=== PATIENT | male | born 1960 | race Caucasian/White ===

== ENCOUNTER 2016-12-11 05:15 | Outpatient (CLI) ==
[2016-12-15 16:52] VITALS: BMI 45.3
== END 2016-12-11 05:16 ==
LOC: AMBL 05:15
PROVIDERS: ATTEND Internal Medicine Geriatric Medicine
DX: E11.649 Type 2 diabetes mellitus with hypoglycemia without coma (principal); R06.02 Shortness of breath; J44.9 Chronic obstructive pulmonary disease, unspecified; Z99.81 Dependence on supplemental oxygen

== ENCOUNTER 2016-12-11 05:35 | Emergency (ER) ==
[2016-12-11 05:56] VITALS: BP 106/63; TEMP 96.6; BMI 45.3
[2016-12-11] MEDS ORDERED: SODIUM CHLORIDE 1,000 ML IV STA (06:42)
--- NOTE | 2016-12-11 06:47 | ED.PDOC ---
General Stated Complaint: Patient states that he woke up with feeling poorly/ like sugar being so low. He is complians of severe back pain. Took some peanut and crackers blood glucose went up to 179 when ambulace got there his blood glucose was 220s. Admits to taking extra Methadone due to worsening of back pain. Time Seen by Physician: 06:25 Mode of Arrival: Ambulance Information Source: Patient Exam Limitations: No limitations Nursing and Triage Documentation Reviewed and Agree: Yes <CARLOS HATCH - Last Filed: 12/11/16 07:04> <MITALI FAJARDO JR - Last Filed: 12/11/16 09:29> ED Provider: Dr. MITALI FAJARDO JR (CARLOS HATCH) (MITALI FAJARDO JR) Chief Complaint: Diabetes Primary Care Provider: BARTOLO PURCELL (CARLOS HATCH) (MITALI FAJARDO JR) Endocrine Complaint Exam - Diabetic Complication Complaint/Exam Onset/Duration: 1 hour Symptoms Are: Still present Timing: Constant Initial Severity: Severe <CARLOS HATCH - Last Filed: 12/11/16 07:04> Review of Systems - Review Of Systems Constitutional: Reports: Other (dorinda ) Eyes: Reports: No symptoms Ears, Nose, Mouth, Throat: Reports: No symptoms Respiratory: Reports: No symptoms Cardiac: Reports: No symptoms GI: Reports: Constipated Musculoskeletal: Reports: Back pain Skin: Reports: No symptoms Neurological: Reports: Anxiety Endocrine: Reports: No symptoms Hematologic/Lymphatic: Reports: No symptoms All Other Systems: Reviewed and Negative <CARLOS HATCH - Last Filed: 12/11/16 07:04> Past Medical History - Past Medical History Endocrine: Reports: DM 2 Cardiovascular: Reports: [place], Hypertension Respiratory: Reports: COPD Hematological: Reports: None Gastrointestinal: Reports: None Genitourinary: Reports: None Neuro/Psych: Reports: Anxiety Musculoskeletal: Reports: Arthritis, Back Pain Cancer: Reports: None - Surgical History General Surgical History: Reports: CABG - Family History Family History: Reports: Diabetes - Social History Smoking Status: Current every day smoker, Heavy tobacco smoker Hx Substance Use: Yes (occassional marijuana) Alcohol Screening: None - Immunizations Tetanus Shot up to Date: Yes (5 yrs ago) <CARLOS HATCH - Last Filed: 12/11/16 07:04> Physical Exam - Physical Exam Appearance: Ill-appearing, Obese Pain Distress: Severe (back) Eyes: OBDULIO, EOMI, Conjunctiva clear ENT: Dry mucosa Neck: Supple Respiratory: Airway patent, Breath sounds clear, Breath sounds equal, Respirations nonlabored Cardiovascular: RRR, Pulses normal, No rub, No murmur GI/: Soft (obsese ), Nontender, No masses, Bowel sounds normal, No Organomegaly Musculoskeletal: Normal strength, ROM intact, No edema, No calf tenderness Skin: Warm, Dry Neurological: Sensation intact, Motor intact, Reflexes intact, Cranial nerves intact, Alert, Oriented Psychiatric: Affect appropriate, Mood appropriate <CARLOS HATCH - Last Filed: 12/11/16 07:04> Re-Evaluation - Re-Evaluation Time of Re-Evaluation: 08:35 Status: Improved (labs marlon patietn alert denies extra methadone) <MITALI FAJARDO JR - Last Filed: 12/11/16 09:29> Physician Notification - Case Discussed Time of Notification: 07:05 Endorsed To/Discussed With: Dr. Fajardo <CARLOS HATCH - Last Filed: 12/11/16 07:04> Critical Care Note - Critical Care Note Total Time (mins): 0 <CARLOS HATCH - Last Filed: 12/11/16 07:04> Course - Course Hematology/Chemistry: 12/11/16 07:30 12/11/16 07:30 <MITALI FAJARDO JR - Last Filed: 12/11/16 09:29> - Course Orders, Labs, Meds: Lab Review 12/11/16 07:30 WBC 9.25 RBC 4.02 L Hgb 11.9 L Hct 35.9 L MCV 89.3 MCH 29.6 MCHC 33.1 RDW Coeff of Honorio 14.1 Plt Count 250 Immature Gran % (Auto) 0.6 Neut % (Auto) 76.1 Lymph % (Auto) 12.4 Beaver % (Auto) 7.9 Eos % (Auto) 2.5 Baso % (Auto) 0.5 Immature Gran # (Auto) 0.1 Neut # 7.0 H Lymph # 1.2 Beaver # 0.7 Eos # 0.2 Baso # 0.1 Sodium 139 Potassium 4.3 Chloride 102 Carbon Dioxide 30 Anion Gap 11.3 BUN 13 Creatinine 0.95 Estimated GFR (MDRD) 82.00 BUN/Creatinine Ratio 13.68 Glucose 100 Calcium 9.0 Total Bilirubin 0.26 AST 12 L ALT 13 Alkaline Phosphatase 85 Total Protein 6.4 Albumin 3.1 L Globulin 3.3 Albumin/Globulin Ratio 0.94 Orders Category Date Time Status ACCUCHECK (ED) [ED ACCUCHECK ASSESSMENT] .ONCE EMERGENCY 12/11/16 07:04 Active ED IV/MEDIPORT/POWERPORT .ONCE EMERGENCY 12/11/16 06:42 Active Freeman [ED CATHETER INSERTION AND CARE] .ONCE EMERGENCY 12/11/16 08:12 Active CBC W/ AUTO DIFF Stat LAB 12/11/16 07:30 Completed COMPREHENSIVE METABOLIC PANEL Stat LAB 12/11/16 07:30 Completed UA [URINALYSIS C & S IF INDICATED] Stat LAB 12/11/16 09:11 Ordered 0.9 % Sodium Chloride [Saline Flush] MEDS 12/11/16 06:42 Active 1 syr IVF PRN PRN Ketorolac Tromethamine [Toradol] MEDS 12/11/16 07:20 Discontinued 10 mg IVP ONCE STA Lidocaine HCl [Uro-Jet] MEDS 12/11/16 08:12 Discontinued 10 ml MUCOUSMEMB ONCE STA Sodium Chloride 0.9% [Sodium Chloride] 1,000 ml MEDS 12/11/16 06:42 Discontinued IV BOLUS Medications Generic Name Dose Route Start Last Admin Trade Name Freq PRN Reason Stop Dose Admin Sodium Chloride 1 syr 12/11/16 06:42 Saline Flush IVF PRN PRN To flush IV Discontinued Medications Generic Name Dose Route Start Last Admin Trade Name Freq PRN Reason Stop Dose Admin Sodium Chloride 1,000 mls @ 1,000 mls/hr 12/11/16 06:42 12/11/16 06:40 Sodium Chloride IV 12/11/16 07:41 1,000 mls/hr BOLUS STA Administration Ketorolac Tromethamine 10 mg 12/11/16 07:20 12/11/16 08:08 Toradol IVP 12/11/16 07:21 10 mg ONCE STA Administration Lidocaine HCl 10 ml 12/11/16 08:12 Uro-Jet MUCOUSMEMB 12/11/16 08:13 ONCE STA (CARLOS HATCH) (MITALI FAJARDO JR) Vital Signs: Temp Pulse Resp BP Pulse Ox 12/11/16 05:39 96.6 F L 64 28 H 106/63 94 L (CARLOS HATCH) (MITALI FAJARDO JR) Departure <CARLOS HATCH - Last Filed: 12/11/16 07:04> - Departure Time of Disposition: 08:35 Pt referred to PMD for follow-up: Yes <MITALI FAJARDO JR - Last Filed: 12/11/16 09:29> - Departure Disposition: HOME SELF-CARE Discharge Problem: Hypoglycemia Instructions: Hypoglycemia in a Person with Diabetes (ED) Condition: Good Additional Instructions: next meal-EAT BEFORE taking insulin, to have calories present and avoid hypoglycemia eat as instructed be sure to eat moderate amount of carbohydrates three times a day with snacks excessive carbohydrates may lead to hypoglycemia with stress or dietary indiscretions follow usual insulin doses after next meal call PMD for follow up return if chest pain fever over 101.0 or worsening Prescriptions: Polyethylene Glycol 3350 [Miralax] 17 gm PO DAILY PRN #510 powder PRN Reason: Constipation Allergies/Adverse Reactions: Allergies codeine Adverse Reaction (Verified 12/11/16 06:01) fentanyl Adverse Reaction (Verified 12/11/16 06:01) Home Medications: Ambulatory Orders Polyethylene Glycol 3350 [Miralax] 17 gm PO DAILY PRN #510 powder 12/11/16
[2016-12-11] MEDS ORDERED: DILAUDID 1 MG/ML SYRINGE IVP STA (06:55)
[2016-12-11] MEDS ORDERED: TORADOL IVP STA (07:20)
[2016-12-11 07:37] LABS: BASOPHILS # (AUTO) 0.1 K/uL (0-0.2); BASOPHILS % (AUTO) 0.5 % (0.0-3.0); EOSINOPHILS # (AUTO) 0.2 K/ul (0.0-0.7); EOSINOPHILS % (AUTO) 2.5 % (0.0-7.0); HEMATOCRIT 35.9 % (42.0-52.0); HEMOGLOBIN 11.9 g/dl (14.0-18.0); IMMATURE GRANULOCYTE % (AUTO) 0.6 % (0.0-5.0); LYMPHOCYTES # (AUTO) 1.2 K/uL (0.60-3.4); LYMPHOCYTES % (AUTO) 12.4 (10.0-50.0); MEAN CORPUSCULAR HEMOGLOBIN 29.6 pg (27.0-31.0); MEAN CORPUSCULAR HGB CONC 33.1 (31.8-35.4); MEAN CORPUSCULAR VOLUME 89.3 fl (80.0-94.0); MONOCYTES # (AUTO) 0.7 K/uL (0.4-2.0); MONOCYTES % (AUTO) 7.9 (0-10); NEUTROPHILS % (AUTO) 76.1; PLATELET COUNT 250 10^3/uL (140-440); RED BLOOD COUNT 4.02 10^6/ul (4.70-6.10); WHITE BLOOD COUNT 9.25 K/ul (4.2-10.2)
[2016-12-11 07:55] LABS: ALBUMIN 3.1 g/dL (3.4-5.0); ALBUMIN/GLOBULIN RATIO 0.94; ANION GAP 11.3; BILIRUBIN,TOTAL 0.26 mg/dL (0.00-1.20); BUN/CREATININE RATIO 13.68; CREATININE 0.95 mg/dL (0.60-1.10); POTASSIUM 4.3 mmol/L (3.5-5.1); TOTAL PROTEIN 6.4 g/dL (6.4-8.2)
[2016-12-11] MEDS ORDERED: URO-JET MUCOUSMEMB STA (08:12)
[2016-12-11 09:17] LABS: BILIRUBIN,URINE 1+ (NEGATIVE); KETONES,URINE Trace (NEGATIVE); LEUKOCYTE ESTERASE ,URINE Negative (NEGATIVE); NITRITE,URINE Negative (NEGATIVE); PH,URINE 5.5 (5-9); PROTEIN,URINE 2+ (NEGATIVE); URINE, BLOOD Trace-lysed (NEGATIVE)
[2016-12-11 10:01] LABS: ADD URINE MICROSCOPIC YES
== END 2016-12-11 10:14 | disposition home or self-care (01) ==
LOC: ED 05:35
DX: E11.649 Type 2 diabetes mellitus with hypoglycemia without coma (principal); M54.9 Dorsalgia, unspecified; K59.00 Constipation, unspecified; I10 Essential (primary) hypertension; I25.2 Old myocardial infarction; F17.210 Nicotine dependence, cigarettes, uncomplicated; Z95.1 Presence of aortocoronary bypass graft
CPT/HCPCS: 36415; 80053; 81001; 85025; 96361; 96374; 99283

== ENCOUNTER 2016-12-15 10:13 | Outpatient (CLI) ==
--- NOTE | 2016-12-15 11:42 | DI ---
EXAM: Radiographs, left shoulder HISTORY: Left shoulder pain. COMPARISON: None available. TECHNIQUE: Two views. FINDINGS: Bone mineralization is normal. No fracture or dislocation identified. Moderate marginal osteophyte formation seen in the acromioclavicular and glenohumeral joints. Soft tissues are unrem arkable. There has been previous sternotomy. IMPRESSION: Moderate osteoarthritis.
--- NOTE | 2016-12-15 11:45 | DI ---
EXAM: Two views of the right hip. History: Right hip pain and lower back pain. Findings: No acute fracture or dislocation. Borderline cam deformity of the proximal right femur. The right hip joint space is preserved. Impression: No acute osseous abnormality. Borderline cam deformity of the proximal right femur can predispose to femoral acetabular impingement syndrome.
--- NOTE | 2016-12-15 11:46 | DI ---
EXAM: Lumbar spine five views HISTORY: Low back pain COMPARISON: None TECHNIQUE: Five views lumbar spine were performed FINDINGS: Sacroiliac joints intact. Sacral arcuate lines intact. Vertebral bodies normal height. No fracture. No subluxation. Multilevel marginal osteophyte formation. Mild multilevel intervert ebral disc space narrowing and moderate intervertebral disc space narrowing L5-S1. Multilevel facet arthrosis, greatest in the lower lumbar spine. Atherosclerosis. IMPRESSION: Chronic discogenic degenerative disease and facet arthrosis.
== END 2016-12-15 10:14 | disposition home or self-care (01) ==
LOC: RAD 10:13
PROVIDERS: ATTEND Physician Assistant
DX: M54.5 Low back pain (principal); M25.512 Pain in left shoulder

== ENCOUNTER 2016-12-16 17:01 | Emergency (ER) ==
[2016-12-16 17:16] VITALS: BP 168/82; TEMP 98.2; BMI 43.9
[2016-12-16] MEDS ORDERED: DEMEROL 50 MG/ML SYRINGE IM STA (17:21)
[2016-12-16] MEDS ORDERED: ZOFRAN 4 MG/2 ML IM STA (17:22)
[2016-12-16] MEDS ORDERED: DECADRON 4 MG/ML SDV IM STA ×2 (17:22)
--- NOTE | 2016-12-16 18:17 | ED.PDOC ---
General ED Provider: Dr. TOBY MARIO Chief Complaint: Back Pain Stated Complaint: BACK PAIN Time Seen by Physician: 17:00 Mode of Arrival: Wheelchair Information Source: Patient Exam Limitations: Physical impairment Primary Care Provider: ANGIE COLE Nursing and Triage Documentation Reviewed and Agree: No Musculoskeletal Complaint Exam - Back Pain Complaint/Exam Mechanism of Injury: Reports: No known trauma Onset/Duration: chronic Symptoms Are: Still present Timing: Constant Episodes Lasting: Days Initial Severity: Moderate Current Severity: Moderate Location: Reports: Discrete Character: Reports: Aching Aggravating: Reports: None Alleviating: Reports: Rest, Position Associated Signs and Symptoms: Denies: Swelling, Redness, Bruising, Fever, Weakness, Numbness, Tingling, Abdominal pain, Flank pain, Bladder incontinence, Bowel incontinence, Weight loss, Pain with weight bearing Related History: Reports: Similar episode AAA Risk Factors: Reports: None Cauda Equina Risk Factors: Reports: None Epidural Abcess Risk Factors: Reports: None Related Surgical History: Reports: None Focal Tenderness: No Paraspinal Muscle Tenderness: No Paraspinal Muscle Spasm: No Scoliosis: No Lordosis: No Kyphosis: No SLR Test: Right Positive Hip Motion Testing Pain: Right Negative Focal Weakness: Present: None Focal Sensory Loss: Present: None Gait: Present: Normal Differential Diagnoses: Strain, Sprain Review of Systems - Review Of Systems Constitutional: Reports: No symptoms Eyes: Reports: No symptoms Ears, Nose, Mouth, Throat: Reports: No symptoms Respiratory: Reports: No symptoms Cardiac: Reports: No symptoms GI: Reports: No symptoms : Reports: No symptoms Musculoskeletal: Reports: Back pain Skin: Reports: No symptoms Neurological: Reports: No symptoms Endocrine: Reports: No symptoms Hematologic/Lymphatic: Reports: No symptoms All Other Systems: Reviewed and Negative Past Medical History - Past Medical History Endocrine: Reports: DM 2 Cardiovascular: Reports: [place], Hypertension Respiratory: Reports: COPD Hematological: Reports: None Gastrointestinal: Reports: None Genitourinary: Reports: None Neuro/Psych: Reports: Anxiety Musculoskeletal: Reports: Arthritis, Back Pain Cancer: Reports: None - Surgical History General Surgical History: Reports: CABG - Family History Family History: Reports: Diabetes - Social History Smoking Status: Current every day smoker, Heavy tobacco smoker Hx Substance Use: Yes (occassional marijuana) Alcohol Screening: None Physical Exam - Physical Exam Appearance: Well-appearing, No pain distress, Well-nourished Eyes: OBDULIO, EOMI, Conjunctiva clear ENT: Ears normal, Nose normal, Oropharynx normal Respiratory: Airway patent, Breath sounds clear, Breath sounds equal, Respirations nonlabored Cardiovascular: RRR, Pulses normal, No rub, No murmur GI/: Soft, Nontender, No masses, Bowel sounds normal, No Organomegaly Musculoskeletal: Normal strength, ROM intact, No edema, No calf tenderness Skin: Warm, Dry, Normal color Neurological: Sensation intact, Motor intact, Reflexes intact, Cranial nerves intact, Alert, Oriented Psychiatric: Affect appropriate, Mood appropriate Critical Care Note - Critical Care Note Total Time (mins): 0 Course - Course Orders, Labs, Meds: Orders Category Date Time Status NPO REMINDER: IMAGING ONCE CARE 12/16/16 18:38 Active CBC W/ AUTO DIFF Stat LAB 12/16/16 18:43 Received COMPREHENSIVE METABOLIC PANEL Stat LAB 12/16/16 18:43 Received PSA [PROSTATE SPECIFIC ANTIGEN SCRN] Stat LAB 12/16/16 18:43 Received PSA [PSA TOTAL-DIAGNOSTIC] Stat LAB 12/16/16 18:38 Ordered URINALYSIS C & S IF INDICATED Stat LAB 12/16/16 18:36 Uncollected Dexamethasone 4 mg/ml Inj [Decadron 4 mg/ml Sdv] MEDS 12/16/16 17:22 Discontinued 4 mg IM ONCE STA Hydromorphone HCl [Dilaudid 1 mg/ml Syringe] MEDS 12/16/16 18:46 Discontinued 0.5 mg IM ONCE STA Meperidine HCl/Pf [Demerol 50 mg/ml Syringe] MEDS 12/16/16 17:21 Discontinued 50 mg IM ONCE STA Ondansetron HCl/Pf [Zofran 4 mg/2 ml] MEDS 12/16/16 17:22 Discontinued 4 mg IM ONCE STA CT CHEST W/CONTRAST Stat RADS 12/16/16 18:[address] LUMBAR SPINE W/O CONTRAST Stat RADS 12/16/16 17:23 Completed Medications Discontinued Medications Generic Name Dose Route Start Last Admin Trade Name Freq PRN Reason Stop Dose Admin Dexamethasone Sodium Phosphate 4 mg 12/16/16 17:22 12/16/16 17:48 Decadron 4 Mg/Ml Sdv IM 12/16/16 17:23 4 mg ONCE STA Administration Hydromorphone HCl 0.5 mg 12/16/16 18:46 Dilaudid 1 Mg/Ml Syringe IM 12/16/16 18:47 ONCE STA Meperidine HCl 50 mg 12/16/16 17:21 12/16/16 17:46 Demerol 50 Mg/Ml Syringe IM 12/16/16 17:22 50 mg ONCE STA Administration Ondansetron HCl 4 mg 12/16/16 17:22 12/16/16 17:48 Zofran 4 Mg/2 Ml IM 12/16/16 17:23 4 mg ONCE STA Administration Vital Signs: Temp Pulse Resp BP Pulse Ox 12/16/16 17:01 98.2 F 78 20 168/82 H 94 L Departure - Departure Time of Disposition: 19:00 (refused imaging of cthe chest , and abdomen, pelvis RACING BOARD MARKER PRESENT , PT STATED IT IS ALL TOO MUCH FOR ME I WILL RETURN THURSDAY AND HAVE IT DONE ) Disposition: HOME SELF-CARE Discharge Problem: Backache Instructions: Low Back Strain (ED), Chronic Back Pain (ED) Condition: Good Pt referred to PMD for follow-up: No Additional Instructions: Follow up with your primary care physician as soon as possible. PLEASE RETURN ON THURSDAY I WANT TO EXAMINE YOU FOR CANCER Prescriptions: Hydrocodone/Acetaminophen [Holabird 5-325 Tablet] 1 each PO Q6HR PRN #12 tablet PRN Reason: PAIN Allergies/Adverse Reactions: Allergies codeine Adverse Reaction (Verified 12/16/16 17:09) fentanyl Adverse Reaction (Verified 12/16/16 17:09) Home Medications: Ambulatory Orders Polyethylene Glycol 3350 [Miralax] 17 gm PO DAILY PRN #510 powder 12/11/16 Hydrocodone/Acetaminophen [Holabird 5-325 Tablet] 1 each PO Q6HR PRN #12 tablet Disposition Discussed With: Patient
--- NOTE | 2016-12-16 18:17 | CT ---
EXAM: CT lumbar spine without intravenous contrast 12/16/2016. Sagittal and coronal reformatted im ages obtained HISTORY: Back pain COMPARISON: 12/15/2016 FINDINGS: A normal lumbar lordosis is maintained. A lytic lesion is present within the L3 vertebral body. The current CT appearance is nonspecific. This could potentially represent hemangioma. Other etiologies are not excluded. This has atypical features. This extends through the superior and inferior endplates. Cortical irregularity also inv olves the posterior cortex. Posterior disc bulge as well as a displaced cortical margins cause flat tening of the thecal sac. Further characterization is needed. MRI without with intravenous conscio us recommended. Posterior disc bulge/osteophyte complex also causes flattening the details sac at L3-L4, L4-L5 L5-S1 . There is mild right neural foraminal stenosis at L3-L4. Moderate right neural foraminal stenosis at L4-L5 and L5-S1. Mild left neural foraminal stenosis at L3-L4, L4-L5 and L5-S1. IMPRESSION: 1. Lytic lesion at the level of the L3 vertebral body. This is nonspecific. This could potentiall y represent hemangioma. Other etiologies are not excluded. MRI without and with intravenous contra st is recommended. Further characterization is needed. 2. Multilevel chronic degenerative disc disease as discussed above.
[2016-12-16] MEDS ORDERED: DILAUDID 1 MG/ML SYRINGE IM STA (18:46)
[2016-12-16 18:48] LABS: BASOPHILS % (AUTO) 0.5 % (0.0-3.0); EOSINOPHILS # (AUTO) 0.3 K/ul (0.0-0.7); HEMATOCRIT 39.9 % (42.0-52.0); HEMOGLOBIN 13.3 g/dl (14.0-18.0); IMMATURE GRANULOCYTE % (AUTO) 0.4 % (0.0-5.0); LYMPHOCYTES # (AUTO) 1.6 K/uL (0.60-3.4); LYMPHOCYTES % (AUTO) 21.9 (10.0-50.0); MEAN CORPUSCULAR HEMOGLOBIN 29.4 pg (27.0-31.0); MEAN CORPUSCULAR HGB CONC 33.3 (31.8-35.4); MEAN CORPUSCULAR VOLUME 88.3 fl (80.0-94.0); MONOCYTES # (AUTO) 0.4 K/uL (0.4-2.0); MONOCYTES % (AUTO) 5.8 (0-10); NEUTROPHILS % (AUTO) 67.4; PLATELET COUNT 239 10^3/uL (140-440); RED BLOOD COUNT 4.52 10^6/ul (4.70-6.10); WHITE BLOOD COUNT 7.45 K/ul (4.2-10.2)
[2016-12-16 19:11] LABS: BILIRUBIN,URINE Negative (NEGATIVE); KETONES,URINE Trace (NEGATIVE); LEUKOCYTE ESTERASE ,URINE Negative (NEGATIVE); NITRITE,URINE Negative (NEGATIVE); PROTEIN,URINE 2+ (NEGATIVE); URINE, BLOOD Trace-intact (NEGATIVE)
[2016-12-16 19:17] LABS: ADD URINE MICROSCOPIC YES; BACTERIA,URINE TRACE (NOT PRESENT)
[2016-12-16 19:18] LABS: ALBUMIN 3.3 g/dL (3.4-5.0); ALBUMIN/GLOBULIN RATIO 0.92; ANION GAP 12.6; BILIRUBIN,TOTAL 0.38 mg/dL (0.00-1.20); BUN/CREATININE RATIO 16.16; CALCIUM 9.3 mg/dL (8.2-10.2); CREATININE 0.99 mg/dL (0.60-1.10); POTASSIUM 4.6 mmol/L (3.5-5.1); TOTAL PROTEIN 6.9 g/dL (6.4-8.2)
== END 2016-12-16 19:20 | disposition home or self-care (01) ==
LOC: ED 17:01
DX: M54.9 Dorsalgia, unspecified (principal); E11.9 Type 2 diabetes mellitus without complications; I10 Essential (primary) hypertension; M19.90 Unspecified osteoarthritis, unspecified site; I25.810 Atherosclerosis of coronary artery bypass graft(s) without angina pectoris; I25.2 Old myocardial infarction; F17.210 Nicotine dependence, cigarettes, uncomplicated
CPT/HCPCS: 36415; 80053; 81001; 85025; 96372; 99282

== ENCOUNTER 2016-12-19 08:37 | Emergency (ER) ==
[2016-12-19 08:49] VITALS: BP 169/71; TEMP 96.7; BMI 43.9
--- NOTE | 2016-12-19 09:25 | ED.PDOC ---
General ED Provider: Dr. TOBY MARIO Chief Complaint: Back Pain Stated Complaint: LOW BACK PAIN Time Seen by Physician: 08:40 (RETURNS PER INSTRUCTION) Mode of Arrival: Walk-In Information Source: Patient Exam Limitations: No limitations Primary Care Provider: ANGIE COLE Nursing and Triage Documentation Reviewed and Agree: Yes (LYTIC LESION NOTED ON L/S LAST VISIT) Musculoskeletal Complaint Exam - Back Pain Complaint/Exam Mechanism of Injury: Reports: No known trauma Onset/Duration: CHRONIC Symptoms Are: Still present Episodes Lasting: Weeks Initial Severity: Moderate Current Severity: Moderate Character: Reports: Spasmodic, Stiffness Aggravating: Reports: Movements, Lifting, Bending, Walking Alleviating: Reports: Rest Associated Signs and Symptoms: Denies: Swelling, Redness, Bruising, Fever, Weakness, Numbness, Tingling, Abdominal pain, Flank pain, Bladder incontinence, Bowel incontinence, Weight loss, Pain with weight bearing Related History: Reports: Similar episode TAD Risk Factors: Reports: Hypertension AAA Risk Factors: Reports: None Cauda Equina Risk Factors: Reports: None Epidural Abcess Risk Factors: Reports: None Related Surgical History: Reports: None Focal Tenderness: No Paraspinal Muscle Spasm: No Scoliosis: No Review of Systems - Review Of Systems Constitutional: Reports: No symptoms Eyes: Reports: No symptoms Ears, Nose, Mouth, Throat: Reports: No symptoms Respiratory: Reports: No symptoms Cardiac: Reports: No symptoms GI: Reports: No symptoms : Reports: No symptoms Musculoskeletal: Reports: Back pain Skin: Reports: No symptoms Neurological: Reports: No symptoms Endocrine: Reports: No symptoms Hematologic/Lymphatic: Reports: No symptoms All Other Systems: Reviewed and Negative Past Medical History - Past Medical History Endocrine: Reports: DM 2 Cardiovascular: Reports: [place], Hypertension Respiratory: Reports: COPD Hematological: Reports: None Gastrointestinal: Reports: None Genitourinary: Reports: None Neuro/Psych: Reports: Anxiety Musculoskeletal: Reports: Arthritis, Back Pain Cancer: Reports: None - Surgical History General Surgical History: Reports: CABG - Family History Family History: Reports: Diabetes - Social History Smoking Status: Current every day smoker, Heavy tobacco smoker Hx Substance Use: Yes (occassional marijuana) Alcohol Screening: None Physical Exam - Physical Exam Appearance: Well-appearing, No pain distress, Well-nourished Eyes: OBDULIO, EOMI, Conjunctiva clear ENT: Ears normal, Nose normal, Oropharynx normal Respiratory: Airway patent, Breath sounds clear, Breath sounds equal, Respirations nonlabored Cardiovascular: RRR, Pulses normal, No rub, No murmur GI/: Soft, Nontender, No masses, Bowel sounds normal, No Organomegaly Musculoskeletal: Normal strength, ROM intact, No edema, No calf tenderness Skin: Warm, Dry, Normal color Neurological: Sensation intact, Motor intact, Reflexes intact, Cranial nerves intact, Alert, Oriented Psychiatric: Affect appropriate, Mood appropriate Critical Care Note - Critical Care Note Total Time (mins): 0 Course - Course Vital Signs: Temp Pulse Resp BP Pulse Ox 12/19/16 08:38 96.7 F L 63 20 169/71 H 95 Departure - Departure Time of Disposition: 09:24 (SOKE TO PT'S PA , MRI OF LUMBAR SPINE , BONE SCAN CT CHEST ABDPELVIS DISCUSSED, PT WILL BE SEEN THIS MORNING IN THE CLIB[facility] BY HER PA ) Disposition: HOME SELF-CARE Discharge Problem: Backache Instructions: Back Pain (ED) Condition: Good Pt referred to PMD for follow-up: No Allergies/Adverse Reactions: Allergies codeine Adverse Reaction (Verified 12/19/16 08:46) fentanyl Adverse Reaction (Verified 12/19/16 08:46)
== END 2016-12-19 09:41 | disposition home or self-care (01) ==
LOC: ED 08:37
DX: M54.5 Low back pain (principal); F17.210 Nicotine dependence, cigarettes, uncomplicated
CPT/HCPCS: 99283

== ENCOUNTER 2016-12-22 07:12 | Outpatient (CLI) ==
--- NOTE | 2016-12-22 08:31 | CT ---
EXAM: CT abdomen pelvis with and without contrast HISTORY: Lytic bone lesion at L3. COMPARISON: Lumbar spine MRI 12/16/2016 TECHNIQUE: Serial axial images of the abdomen pelvis were performed before and after 75 mL is of Om nipaque IV contrast was administered. These were obtained from the lung bases through the inferior pelvis. FINDINGS: The lung bases are clear. The liver is unremarkable. There is no hepatic lesion identified. The gallbladder is mildly disten ded. The adrenal glands are unremarkable. The left kidney demonstrates a rounded low attenuation l esion measuring 2.3 cm in diameter and Hounsfield units consistent with a cyst. The spleen demonstr ates calcified granulomas. The pancreas is unremarkable. The stomach is unremarkable. The small bowel in the abdomen pelvis is unremarkable. The appendix is normal. The colon is normal . The fat-containing umbilical hernia is present with a abdominal wall defect measuring 2.2 cm. Ur inary bladder is nondistended. The prostate is unremarkable. There is no free air, free fluid or l ymphadenopathy. There is mild scattered atherosclerotic disease. The osseous structures are unchan ged when compared to recent CT lumbar spine. The lytic lesion at L3 vertebral body is unchanged. IMPRESSION: 1. No change in the lytic lesion at L3 which is nonspecific. This may represent hemangioma, but ot her etiologies cannot be excluded. MRI with without contrast was recommended on prior exam and this would aid in further characterization. 2. Left renal cyst. 3. Fat-containing umbilical hernia.
== END 2016-12-22 07:13 | disposition home or self-care (01) ==
LOC: RAD 07:12
PROVIDERS: ATTEND Physician Assistant
DX: R93.7 Abnormal findings on diagnostic imaging of other parts of musculoskeletal system (principal)

== ENCOUNTER 2016-12-24 07:48 | Outpatient (CLI) ==
--- NOTE | 2016-12-24 13:54 | NM ---
EXAM: Whole-body bone scan. HISTORY: Lytic bone lesions seen on recent CT examination. COMPARISON: None of this type. CT 12/16/2016. PROCEDURE: The patient was injected with 26.4 mCi of 99m technetium HDP intravenously. After an shivani ropriate interval, whole-body anterior and posterior images were obtained. Additional spot images w ere obtained. FINDINGS: The thoracic and lumbar spine demonstrate age appropriate changes. In addition, there is r elatively intense activity at the L3 level corresponding to the large lytic lesion within the verteb ral body seen on recent CT examination. There is more modest increased activity in the L4-L5 verteb ra associated with degenerative change. The ribcage is normal in appearance. The pelvic skeleton is normal in appearance. The kidneys and bladder demonstrate normal, physiologic activity. The lower extremeties demonstrate age appropriate activity in the major joints. There is modest increased act ivity in the knees, ankles and feet compatible with typical degenerative change. The upper extremeti es demonstrate age appropriate levels of activity in the major joints. There is symmetric increased activity in the shoulders and adjacent portions of the scapulae as well as in the manubrium. The sym metry suggests that these findings may be associated with physical activity. The cervical spine demo nstrates age appropriate findings. The calvarium and face demonstrate a normal distribution of acti vity. IMPRESSION: 1. The bone scan demonstrates increased uptake of tracer in the L3 vertebra where recent CT examinat ion shows a large lytic defect possibly a hemangioma. There are irregularities in the cortex particu larly the posterior cortex which may be associated with modest nondisplaced fractures caused by the patient's reported trauma (twisted back). 2. The examination otherwise demonstrates normal activity in the rib cage and pelvis. 3. There is increased activity in joints in the upper and lower extremities most probably associated with either degenerative change or repetitive stress. In the latter regard there is relatively int ense activity in the shoulders and manubrium. 4. There are normal findings in the head and neck.
== END 2016-12-24 07:49 | disposition home or self-care (01) ==
LOC: RAD 07:48
PROVIDERS: ATTEND Physician Assistant
DX: R93.7 Abnormal findings on diagnostic imaging of other parts of musculoskeletal system (principal)

== ENCOUNTER 2016-12-30 02:18 | Emergency (ER) ==
[2016-12-30 02:32] VITALS: BP 132/92; TEMP 97.6; BMI 42.3
--- NOTE | 2016-12-30 02:59 | ED.PDOC ---
General ED Provider: Dr. MANGO RUTLEDGE Chief Complaint: Back Pain Stated Complaint: Patient was recently here for the same reason and diagnosed with fracture spine. Time Seen by Physician: 02:56 Mode of Arrival: Wheelchair Information Source: Patient Primary Care Provider: ANGIE COLE Nursing and Triage Documentation Reviewed and Agree: Yes Musculoskeletal Complaint Exam - Back Pain Complaint/Exam Mechanism of Injury: Reports: Trauma Symptoms Are: Still present Timing: Constant Episodes Lasting: Days Initial Severity: Severe Current Severity: Severe Location: Reports: Discrete Character: Reports: Aching, Throbbing Aggravating: Reports: Movements, Lifting, Bending Alleviating: Reports: None Associated Signs and Symptoms: Denies: Swelling, Redness, Bruising, Fever, Weakness, Numbness, Tingling, Abdominal pain, Flank pain, Bladder incontinence, Bowel incontinence, Weight loss, Pain with weight bearing Related History: Reports: Similar episode TAD Risk Factors: Reports: None AAA Risk Factors: Reports: None Cauda Equina Risk Factors: Reports: None Epidural Abcess Risk Factors: Reports: None Related Surgical History: Reports: None Focal Tenderness: Yes Paraspinal Muscle Tenderness: Yes Paraspinal Muscle Spasm: Yes Scoliosis: Yes Lordosis: Yes Kyphosis: No SLR Test: Right Positive, Left Negative Focal Weakness: Present: None Focal Sensory Loss: Present: None Gait: Present: Abnormal Differential Diagnoses: Fracture, Strain Review of Systems - Review Of Systems Constitutional: Reports: No symptoms Eyes: Reports: No symptoms Ears, Nose, Mouth, Throat: Reports: No symptoms Respiratory: Reports: No symptoms Cardiac: Reports: No symptoms GI: Reports: No symptoms : Reports: No symptoms Musculoskeletal: Reports: Back pain Skin: Reports: No symptoms Neurological: Reports: No symptoms Endocrine: Reports: No symptoms Hematologic/Lymphatic: Reports: No symptoms All Other Systems: Reviewed and Negative Past Medical History - Past Medical History Previously Healthy: No Endocrine: Reports: DM 2 Cardiovascular: Reports: DE, Hypertension Respiratory: Reports: COPD Hematological: Reports: None Gastrointestinal: Reports: None Genitourinary: Reports: None Neuro/Psych: Reports: Anxiety Musculoskeletal: Reports: Arthritis, Back Pain Cancer: Reports: None - Surgical History General Surgical History: Reports: CABG - Family History Family History: Reports: Diabetes - Social History Smoking Status: Current every day smoker, Heavy tobacco smoker Smoking Cessation Counseling Time: > 3 min - 10 min Hx Substance Use: No Alcohol Screening: None - Immunizations Tetanus Shot up to Date: Yes Physical Exam - Physical Exam Appearance: Well-appearing, Well-nourished Pain Distress: Moderate Eyes: OBDULIO, EOMI, Conjunctiva clear ENT: Ears normal, Nose normal, Oropharynx normal Respiratory: Airway patent, Breath sounds clear, Breath sounds equal, Respirations nonlabored Cardiovascular: RRR, Pulses normal, No rub, No murmur GI/: Soft, Nontender, No masses, Bowel sounds normal, No Organomegaly Musculoskeletal: No edema, No calf tenderness, Limited ROM, Limited strength Skin: Warm, Dry, Normal color Neurological: Sensation intact, Motor intact, Reflexes intact, Cranial nerves intact, Alert, Oriented Psychiatric: Affect appropriate, Mood appropriate Critical Care Note - Critical Care Note Total Time (mins): 0 Course - Course Vital Signs: Temp Pulse Resp BP Pulse Ox 12/30/16 02:19 97.6 F 77 20 132/92 H 94 L Departure - Departure Time of Disposition: 03:14 Disposition: HOME SELF-CARE Discharge Problem: Back pain Qualifiers: Back pain location: low back pain Chronicity: acute Back pain laterality: bilateral Sciatica presence: with sciatica Sciatica laterality: bilateral sciatica Qualifier Code: (M54.42) Lumbago with sciatica, left side Instructions: Thoracolumbar Fracture (ED) Condition: Stable Pt referred to PMD for follow-up: Yes (spine surgeon.) Additional Instructions: needs to go to spine surgeon, please take the disc and go there patient can walk and urinate fine at this time. patient has f/u with Oncologist per PMD Allergies/Adverse Reactions: Allergies codeine Adverse Reaction (Verified 12/30/16 02:31) fentanyl Adverse Reaction (Verified 12/30/16 02:31) Home Medications: Ambulatory Orders Clopidogrel Bisulfate [Plavix] 75 mg PO DAILY 12/30/16 Cyclobenzaprine HCl [Flexeril] 10 mg PO BEDTIME 12/30/16 Isosorbide Mononitrate [Imdur] 30 mg PO DAILY 12/30/16 Metoprolol Tartrate [Lopressor] 25 mg PO BID 12/30/16 Omeprazole Magnesium [Prilosec Otc] 20 mg PO DAILY 12/30/16 Disposition Discussed With: Patient, Family
[2016-12-30] MEDS ORDERED: ZOFRAN 4 MG/2 ML IM STA (03:06)
[2016-12-30] MEDS ORDERED: DILAUDID 1 MG/ML SYRINGE IM STA (03:06)
== END 2016-12-30 03:45 | disposition home or self-care (01) ==
LOC: ED 02:18
DX: M54.42 Lumbago with sciatica, left side (principal); F17.210 Nicotine dependence, cigarettes, uncomplicated
CPT/HCPCS: 96372; 99283

== ENCOUNTER 2017-01-04 06:27 | Outpatient (CLI) ==
[2017-01-04 07:03] VITALS: BMI 40.8
== END 2017-01-04 06:28 | disposition home or self-care (01) ==
LOC: AMBL 06:27
PROVIDERS: ATTEND Internal Medicine Geriatric Medicine
DX: M54.5 Low back pain (principal); G89.29 Other chronic pain; C41.2 Malignant neoplasm of vertebral column

== ENCOUNTER 2017-01-04 06:39 | Emergency (ER) ==
[2017-01-04 07:03] VITALS: BP 108/89; TEMP 97.1; BMI 40.8
[2017-01-04] MEDS ORDERED: ZOFRAN 4 MG/2 ML IM STA (07:27)
[2017-01-04] MEDS ORDERED: DILAUDID 2 MG/ML SYRINGE IM STA (07:27)
--- NOTE | 2017-01-04 07:28 | ED.PDOC ---
General ED Provider: Dr. MITALI FAJARDO JR Chief Complaint: Back Pain Stated Complaint: LIT HAS BEEN IN MULTIPLE TIMES STATES PAIN MEDICATION ADEQUATE(iIM CANCELLED) FELL LAST NIGHT STEPPED ON DOG TOY JERKED FOOT UP AND FELL ON RIGHT KNEE AND HIP- SCHEDULED FOR MR ON THURSDAY HAS METHADONE FOR PAIN EXAM SLIGHT TENDERNESS HIP AND KNEE NO ECCHYMOSES NO EDEMA SLR SLIGHT POSITIVE( INCREASED TONE) CONSISTENT WITH HISTORY. Brought by [facility] for c/o pain worsening in right hip radiating down right leg. Says has recently been diagnosed with cancer by Dr Valderrama, but says had bone scan here which says has fracture in L3 and T2 causing the pain. [ End ]. 97.1 111 22 95% 108/89 95 % 06/30 methqadone x2 0030. htn dm mi copd anx arth cabg 2007. smoker. Brought by [facility] for c/o pain worsening in right hip radiating down right leg. Says has recently been diagnosed with cancer by Dr Valderrama, but says had bone scan here which says has fracture in L3 and T2 causing the pain. [ End ]. 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 12/22 ct abd-lytic oneil. 12/24 bone scan post cortical fx oneil. [facility]. ROMAN CHASE B: 12/30/16 BEJGUM: Back Pain. : fracture spine. SLR Test: Right Positive, Left Negative. Endocrine: Reports: DM 2. Cardiovascular: Reports: ID, Hypertension. Respiratory: Reports : COPD: Anxiety: Arthritis, Back Pain. Family History: Reports: Diabetes: Current every day smoker, Heavy tobacco smoker. 12/30/16 02:19 97.6 F 77 20 132 /92 H 94 L. : low back pain Chronicity: acute Back pain laterality: bilateral Sciatica presence: with sciatica Sciatica laterality: bilateral sciatica Qualifier Code: (M54.42) Lumbago with sciatica, left side: Thoracolumbar Fracture (ED). Pt referred to PMD for follow-up: Yes (spine surgeon.). patient can walk and urinate fine at this time. patient has f/u with Oncologist per PMD. fentanyl Adverse Reaction (Verified 12/30/16 02:31). Clopidogrel Bisulfate [Plavix] 75 mg PO DAILY 12/30/16. Cyclobenzaprine HCl [ Flexeril] 10 mg PO BEDTIME 12/30/16. Isosorbide Mononitrate [Imdur] 30 mg PO DAILY 12/30/16. Metoprolol Tartrate [Lopressor] 25 mg PO BID 12/30/16. Omeprazole Magnesium [Prilosec Otc] 20 mg PO DAILY 12/30/16. : 12/19/16 RAFATI : LOW BACK PAIN. Time Seen by Physician: 08:40 (RETURNS PER INSTRUCTION) ( LYTIC LESION NOTED ON L/S LAST VISIT): Back pain: DM 2: ID, Hypertension: COPD : Anxiety: Reports: Arthritis, Back Pain: Diabetes. (occassional marijuana). 12/19/16 08:38 96.7 F L 63 20 169/71 H 95. : 09:24 (SOKE TO PT'S PA , MRI OF LUMBAR SPINE , BONE SCAN CT CHEST ABDPELVIS DISCUSSED, PT WILL BE SEEN THIS MORNING IN THE [facility] BY HER PA ). : 12/16/16: Back Pain: chronic. SLR Test: Right Positive. Hip Motion Testing Pain: Right Negative. Focal Weakness: Present: None. Focal Sensory Loss: Present: None. Endocrine: Reports: DM 2. Cardiovascular: Reports: ID, Hypertension. Respiratory: Reports: COPD. Neuro/ Psych: Reports: Anxiety. Musculoskeletal: Reports: Arthritis, Back Pain: CABG: Diabetes (occassional marijuana). Dexamethasone 4 mg/ml Inj [Decadron 4 mg/ml Sdv]MEDS 12/16/16 17:22Discontinued. 4 mg IM ONCE STA. Hydromorphone HCl [ Dilaudid 1 mg/ml Syringe]MEDS 12/16/16 18:46Discontinued. 0.5 mg IM ONCE STA. Meperidine HCl/Pf [Demerol 50 mg/ml Syringe]MEDS 12/16/16 17:21Discontinued. 50 mg IM ONCE STA. Ondansetron HCl/Pf [Zofran 4 mg/2 ml]MEDS. CT CHEST W/ CONTRAST StatRADS 12/16/16 18:37Ordered. CT LUMBAR SPINE W/O CONTRAST StatRADS 12/16/16 17:23Completed. Dexamethasone Sodium Phosphate 4 mg 12/16/16 17:22 17:48. Decadron 4 Mg/Ml Sdv IM 12/16/16 17:23 4 mg. ONCE STA Administration. Hydromorphone HCl 0.5 mg 12/16/16 18:46. Dilaudid 1 Mg/Ml Syringe IM 12/16/16 18:47. ONCE STA. Meperidine HCl 50 mg 12/16/16 17:21 12/16 17:46. Demerol 50 Mg/Ml Syringe IM 12/16/16 17:22 50 mg. ONCE STA Administration. Ondansetron HCl 4 mg 12/16/16 17:22 12/16/16 17:48. Zofran 4 Mg/2 Ml IM 12/16/16 17:23 4 mg. TempPulseRespBPPulse Ox. 12/16/16 17:01 98.2 F 78 20 168/82 H 94 L. - Departure. Time of Disposition: 19:00 (refused imaging of cthe chest , and abdomen, pelvis PATIENT REGISTRATION REP PRESENT , PT STATED IT IS ALL TOO MUCH FOR ME I WILL RETURN THURSDAY AND HAVE IT DONE ) PLEASE RETURN ON THURSDAY I WANT TO EXAMINE YOU FOR CANCER. Hydrocodone/Acetaminophen [[place] 5- 325 Tablet] 1 each PO Q6HR PRN #12 tablet. Polyethylene Glycol 3350 [Miralax] 17 gm PO DAILY PRN #510 powder 12/11/16. Hydrocodone/Acetaminophen [[place] 5- 325 Tablet] 1 each PO Q6HR PRN #12 tablet 12/16/16. : TANA,Date: 12/11/16. Stated Complaint: Patient states that he woke up with feeling poorly/ like sugar being so low. He is complians of severe back pain. Took some peanut and crackers blood glucose went up to 179 when ambulace got there his blood glucose was 220s. Admits to taking extra Methadone due to worsening of back pain. Time Seen by Physician: 06:25. Mode of Arrival: Ambulance. Information Source: Patient. Exam Limitations: No limitations. Nursing and Triage Documentation Reviewed and Agree: Yes. <CARLOS HATCH - Last Filed: 12/11/16 07: 04>. <MITALI FAJARDO JR - Last Filed: 12/11/16 09:29>. ED Provider: Dr. MITALI FAJARDO JR. (CARLOS HATCH). (MITALI FAJARDO JR). Chief Complaint: Diabetes. Primary Care Provider: BARTOLO PURCELL. (CARLOS HATCH). (MITALI FAJARDO JR). Endocrine Complaint Exam. - Diabetic Complication Complaint/Exam. Onset/Duration: 1 hour. Symptoms Are: Still present. Timing: Constant. Initial Severity: Severe. <CARLOS HATCH - Last Filed: 12/11/16 07:04>. Review of Systems. - Review Of Systems. Constitutional: Reports: Other (dorinda ). Eyes : Reports: No symptoms. Ears, Nose, Mouth, Throat: Reports: No symptoms. Respiratory: Reports: No symptoms. Cardiac: Reports: No symptoms. GI: Reports : Constipated. Musculoskeletal: Reports: Back pain. Skin: Reports: No symptoms. Neurological: Reports: Anxiety. Endocrine: Reports: No symptoms. Hematologic/Lymphatic: Reports: No symptoms. All Other Systems: Reviewed and Negative. <CARLOS HATCH - Last Filed: 12/11/16 07:04>. Past Medical History. - Past Medical History. Endocrine: Reports: DM 2. Cardiovascular: Reports: ID , Hypertension. Respiratory: Reports: COPD. Hematological: Reports: None. Gastrointestinal: Reports: None. Genitourinary: Reports: None. Neuro/Psych: Reports: Anxiety. Musculoskeletal: Reports: Arthritis, Back Pain. Cancer: Reports: None. - Surgical History. General Surgical History: Reports: CABG. - Family History. Family History: Reports: Diabetes. - Social History. Smoking Status: Current every day smoker, Heavy tobacco smoker. Hx Substance Use: Yes (occassional marijuana). Alcohol Screening: None. - Immunizations. Tetanus Shot up to Date: Yes (5 yrs ago). <CARLOS HATCH - Last Filed: 12/11/16 07:04>. Physical Exam. - Physical Exam. Appearance: Ill-appearing, Obese. Pain Distress: Severe (back). Eyes: OBDULIO, EOMI, Conjunctiva clear. ENT: Dry mucosa. Neck: Supple. Respiratory: Airway patent, Breath sounds clear, Breath sounds equal, Respirations nonlabored. Cardiovascular: RRR, Pulses normal, No rub, No murmur. GI/: Soft (obsese ), Nontender, No masses, Bowel sounds normal, No Organomegaly. Musculoskeletal: Normal strength, ROM intact, No edema , No calf tenderness. Skin: Warm, Dry. Neurological: Sensation intact, Motor intact, Reflexes intact, Cranial nerves intact, Alert, Oriented. Psychiatric: Affect appropriate, Mood appropriate. <CARLOS HATCH - Last Filed: 12/11/16 07:04 >. Re-Evaluation. - Re-Evaluation. Time of Re-Evaluation: 08:35. Status: Improved (labs marlon patietn alert denies extra methadone). <MITALI FAJARDO JR - Last Filed: 12/11/16 09:29>. Physician Notification. - Case Discussed. Time of Notification: 07:05. Endorsed To/Discussed With: Dr. Fajardo. <CARLOS HATCH - Last Filed: 12/11/16 07:04>. Critical Care Note. - Critical Care Note. Total Time (mins): 0. <CARLOS HATCH - Last Filed: 12/11/16 07:04>. Course. - Course. Hematology/Chemistry: 12/11/16 07:30. [Image 1]. 12/11/16 07:30. [Image 1]. <MITALI FAJARDO JR - Last Filed: 12/11/16 09:29>. - Course. Orders, Labs, Meds: Lab Review. 12/11/16. 07:30. WBC 9.25. RBC 4.02 L. Hgb 11.9 L. Hct 35.9 L. MCV 89.3. MCH 29.6. MCHC 33.1. RDW Coeff of Honorio 14.1. Plt Count 250. Immature Gran % (Auto) 0.6. Neut % (Auto) 76.1. Lymph % (Auto) 12.4. Henderson % (Auto) 7.9. Eos % (Auto) 2.5. Baso % (Auto) 0.5. Immature Gran # (Auto) 0.1. Neut # 7.0 H. Lymph # 1.2. Henderson # 0.7. Eos # 0.2. Baso # 0.1. Sodium 139. Potassium 4.3. Chloride 102. Carbon Dioxide 30. Anion Gap 11.3. BUN 13. Creatinine 0.95. Estimated GFR (MDRD) 82.00. BUN/Creatinine Ratio 13.68. Glucose 100. Calcium 9.0. Total Bilirubin 0.26. AST 12 L. ALT 13. Alkaline Phosphatase 85. Total Protein 6.4. Albumin 3.1 L. Globulin 3.3. Albumin/Globulin Ratio 0.94. Orders. CategoryDate TimeStatus. ACCUCHECK (ED) [ED ACCUCHECK ASSESSMENT] .ONCEEMERGENCY 12/11/16 07 :04Active. ED IV/MEDIPORT/POWERPORT .ONCEEMERGENCY 12/11/16 06:42Active. Freeamn [ED CATHETER INSERTION AND CARE] .ONCEEMERGENCY 12/11/16 08:12Active. CBC W/ AUTO DIFF StatLAB 12/11/16 07:30Completed. COMPREHENSIVE METABOLIC PANEL StatLAB 12/11/16 07:30Completed. UA [URINALYSIS C & S IF INDICATED] StatLAB 12/11/16 09:11Ordered. 0.9 % Sodium Chloride [Saline Flush]MEDS 06:42Active. 1 syr IVF PRN PRN. Ketorolac Tromethamine [Toradol]MEDS 07:20Discontinued. 10 mg IVP ONCE STA. Lidocaine HCl [Uro-Jet]MEDS 08:12Discontinued. 10 ml MUCOUSMEMB ONCE STA. Sodium Chloride 0.9% [Sodium Chloride] 1,000 mlMEDS 12/11/16 06:42Discontinued. IV BOLUS. Medications. Generic NameDose RouteStartLast Admin. Trade NameFreq PRN ReasonStopDose Admin. Sodium Chloride 1 syr 12/11/16 06:42. Saline Flush IVF. PRN PRN. To flush IV. Discontinued Medications. Generic NameDose RouteStartLast Admin. Trade NameFreq PRN ReasonStopDose Admin. Sodium Chloride 1,000 mls @ 1,000 mls /hr 12/11/16 06:42 12/11/16 06:40. Sodium Chloride IV 12/11/16 07:41 1,000 mls/ hr. BOLUS STA Administration. Ketorolac Tromethamine 10 mg 12/11/16 07:20 08:08. Toradol IVP 12/11/16 07:21 10 mg. ONCE STA Administration. Lidocaine HCl 10 ml 12/11/16 08:12. Uro-Jet MUCOUSMEMB 12/11/16 08:13. ONCE STA. (CARLOS HATCH). (MITALI FAJARDO JR). Vital Signs: TempPulseRespBPPulse Ox. 12/11/16 05:39 96.6 F L 64 28 H 106/63 94 L. (CARLOS HATCH). (MITALI FAJARDO JR). Departure. <CARLOS HATCH - Last Filed: 12/11/16 07:04>. - Departure. Time of Disposition: 08:35. Pt referred to PMD for follow-up: Yes. <MITALI FAJARDO JR - Last Filed: 12/11/16 09:29>. - Departure. Disposition: HOME SELF-CARE. Discharge Problem: Hypoglycemia. Instructions: Hypoglycemia in a Person with Diabetes (ED). Condition: Good. Additional Instructions: next meal-EAT BEFORE taking insulin, to have calories present and avoid hypoglycemia. eat as instructed be sure to eat moderate amount of carbohydrates three times a day with snacks. excessive carbohydrates may lead to hypoglycemia with stress or dietary indiscretions. follow usual insulin doses after next meal. call PMD for follow up. return if chest pain fever over 101.0 or worsening. Prescriptions: Polyethylene Glycol 3350 [ Miralax] 17 gm PO DAILY PRN #510 powder. PRN Reason: Constipation. Allergies/ Adverse Reactions: Allergies. codeine Adverse Reaction (Verified 12/11/16 06: 01). fentanyl Adverse Reaction (Verified 12/11/16 06:01). Home Medications: Ambulatory Orders. Polyethylene Glycol 3350 [Miralax] 17 gm PO DAILY PRN #510 powder 12/11/16 Time Seen by Physician: 07:27 Mode of Arrival: Ambulance Information Source: Patient, EMT Primary Care Provider: ANGIE COLE Nursing and Triage Documentation Reviewed and Agree: Yes Review of Systems - Review Of Systems Constitutional: Reports: Malaise, Weakness Eyes: Reports: No symptoms Ears, Nose, Mouth, Throat: Reports: No symptoms Respiratory: Reports: No symptoms Cardiac: Reports: No symptoms GI: Reports: No symptoms : Reports: No symptoms Musculoskeletal: Reports: Back pain, Joint pain, Joint swelling, Muscle pain, Other (RIGHT KNEE AND HIP PAIN) Skin: Reports: No symptoms Neurological: Reports: Other (RIGHT SCIATICA) Endocrine: Reports: No symptoms Hematologic/Lymphatic: Reports: No symptoms All Other Systems: Other Past Medical History - Past Medical History Previously Healthy: No Endocrine: Reports: DM 2 Cardiovascular: Reports: ID, Hypertension Respiratory: Reports: COPD Hematological: Reports: None Gastrointestinal: Reports: None Genitourinary: Reports: None Neuro/Psych: Reports: Anxiety Musculoskeletal: Reports: Arthritis, Back Pain Cancer: Reports: None - Surgical History General Surgical History: Reports: CABG - Family History Family History: Reports: Diabetes - Social History Smoking Status: Current every day smoker, Heavy tobacco smoker Hx Substance Use: No Alcohol Screening: None - Immunizations Tetanus Shot up to Date: Yes Physical Exam - Physical Exam Appearance: Well-appearing, Obese Pain Distress: Moderate Neck: Supple Respiratory: Airway patent Musculoskeletal: Normal strength, ROM intact, No edema, No calf tenderness Skin: Warm, Dry, Normal color Neurological: Sensation intact, Motor intact, Reflexes intact, Cranial nerves intact, Alert, Oriented Psychiatric: Affect appropriate, Mood appropriate Critical Care Note - Critical Care Note Total Time (mins): 5 Course - Course Orders, Labs, Meds: Orders Category Date Time Status Hydromorphone HCl/Pf [Dilaudid 2 mg/ml Syringe] MEDS 01/04/17 07:27 Stop Req 2 mg IM ONCE STA Ondansetron HCl/Pf [Zofran 4 mg/2 ml] MEDS 01/04/17 07:27 Stop Req 8 mg IM ONCE STA Medications Discontinued Medications Generic Name Dose Route Start Last Admin Trade Name Freq PRN Reason Stop Dose Admin Hydromorphone HCl 2 mg 01/04/17 07:27 Dilaudid 2 Mg/Ml Syringe IM 01/04/17 07:28 ONCE STA Ondansetron HCl 8 mg 01/04/17 07:27 Zofran 4 Mg/2 Ml IM 01/04/17 07:28 ONCE STA Vital Signs: Temp Pulse Resp BP Pulse Ox 01/04/17 06:48 97.1 F L 111 H 22 108/89 95 Departure - Departure Time of Disposition: 07:36 Disposition: HOME SELF-CARE Discharge Problem: Knee contusion, Contusion, hip and thigh Instructions: Hip Contusion (ED), Knee Pain (ED) Condition: Good Pt referred to PMD for follow-up: Yes Additional Instructions: ICE 20 MINUTES FOUR TIMES A DAY LIMIT WEIGHT ON RIGHT KNEE FOR THREE DAYS FOLLOW UP PMD RETURN IF HEAVY BRUISING OR UNABLE TO BEAR WEIGHT HOME PAIN MEDS AVOID HEAT FOR THREE DAYS TO RIGHT LEG Allergies/Adverse Reactions: Allergies codeine Adverse Reaction (Verified 01/04/17 07:06) fentanyl Adverse Reaction (Verified 01/04/17 07:06) Home Medications: Ambulatory Orders Clopidogrel Bisulfate [Plavix] 75 mg PO DAILY 12/30/16 Cyclobenzaprine HCl [Flexeril] 10 mg PO BEDTIME 12/30/16 Isosorbide Mononitrate [Imdur] 30 mg PO DAILY 12/30/16 Metoprolol Tartrate [Lopressor] 25 mg PO BID 12/30/16 Omeprazole Magnesium [Prilosec Otc] 20 mg PO DAILY 12/30/16
== END 2017-01-04 07:48 | disposition home or self-care (01) ==
LOC: ED 06:39
DX: S80.01XA Contusion of right knee, initial encounter (principal); S70.01XA Contusion of right hip, initial encounter; S70.11XA Contusion of right thigh, initial encounter; M54.9 Dorsalgia, unspecified; F17.210 Nicotine dependence, cigarettes, uncomplicated; W19.XXXA Unspecified fall, initial encounter
CPT/HCPCS: 99283

== ENCOUNTER 2017-01-06 06:58 | Outpatient (CLI) ==
--- NOTE | 2017-01-06 13:37 | MRI ---
EXAM: Lumbar spine MRI with and without contrast. HISTORY: L3 lytic lesion seen on CT from 12/15/2016. COMPARISON: Nuclear medicine bone scan 12/24/2016, lumbar spine CT scan 12/16/2016. TECHNIQUE: Multiplanar, multisequence MR images were acquired of the lumbar spine before and after administration of intravenous contrast. FINDINGS: Five lumbar-type vertebra are present. There is mild lumbar levoscoliosis centered at L3 -4 and mild loss of the usual smooth lumbar lordosis with 2 mm anterolisthesis of L4 on L5 and 3 mm retrolisthesis of L5 on S1. Small ventral and lateral osteophytes are present in the lumbar spine. There are mild degenerative endplate changes at L2-3 with mild disc space narrowing and bright STIR signal edema in the intervertebral disc. At L2-3 and L4-5,, there is osteophytosis with mild disc space narrowing that is greatest right laterally. At L5-S1, there is osteophytosis with moderate to marked disc space narrowing, moderate endplate irregularity with small chronic Schmorl's nodes and heterogeneous reactive marrow changes along the endplates which are greatest anteriorly and right la terally. These findings may be due to increased stress or motion at this level. Conus medullaris e nds at L1 and has normal signal intensity. There is no abnormal leptomeningeal contrast enhancement . Canal diameter is developmentally narrow and there is epidural lipomatosis. There is a 35% acute right anterolateral wedge compression deformity of L3 with irregular right bico ncave endplates. This is greatest involving the inferior endplate. There are fractures that extend from the anterior inferior cortex into the superior and inferior endplates and to the posterior cor madina with 3.3 mm retropulsion of the midline posterior cortex. Bright STIR signal edema is present a nd this is consistent with an acute burst fracture. There is generally low T1, mildly enhancing sof t tissue signal in the L3 vertebra and there there is a localized lobular lesion in the right L3 kiah tebra that extends to the junction with the right pedicle. This has a mildly lobular dark T1 and T2 signal sclerotic peripheral margin and several septations. These findings are suggestive of an und erlying osseous lesion such as an atypical benign intraosseous hemangioma or a nonaggressive metasta sis with a superimposed acute burst fracture. There is an acute 5% left anterior superior endplate compression fracture at L4. This has a linear fracture that extends from the left anterior superior cortex into the superior endplate and superola teral cortex. Low T1, bright STIR signal edema and mild contrast enhancement is present in the left superior L4 vertebra without a discrete underlying osseous lesion. The enhancement may be due to i ncreased perfusion. The visualized liver, spleen and kidneys are unremarkable. The bladder is distended. There are no paravertebral masses. L1-2: The intervertebral disc is normal. There is minor irregular concavity of the endplates. L2-3: There is a minor disc bulge which is asymmetric to the right that minimally narrows the infer ior right neural foramen. Minor bilateral hypertrophic facet arthropathy and ligamentum flavum hype rtrophy is present, greater on the right. This causes minor right neural foraminal stenosis. L3-4: There is an acute moderate right anterior burst fracture of L3 with 3.3 mm retropulsion. Can al diameter is developmentally narrow and there is prominent epidural fat. This causes mild to mode rate spinal stenosis and mild left mild to moderate right neural foraminal stenosis with encroachmen t on the right L3 nerve. L4-5: There is anterolisthesis of L4 on L5 due to moderate bilateral hypertrophic facet arthropathy . There is a mild disc bulge and a pseudo disc bulge that is asymmetric to the right with marginal osteophytes. The thecal sac is mild developmentally small and there is mild to moderate left and mo derate right neural foraminal stenosis with encroachment on both L4 nerves, greater on the right. A P diameter of the thecal sac is 8 mm. L5-S1: There is a diffuse disc osteophyte complex that is asymmetric to the right which narrows the inferior neural foramina bilaterally. Mild bilateral facet arthropathy is present and there is mil d to moderate narrowing of the thecal sac due to prominent epidural lipomatosis that is greatest lat erally bilaterally. There is moderate right neural foraminal stenosis with encroachment on the righ t L5 nerve. IMPRESSION: 1. Moderate acute right anterior pathologic burst fracture of L3 with 3.3 mm retropulsion and mild to moderate spinal stenosis. There is an underlying localized well corticated lesion with several s eptations in the right L3 vertebral body. Possible etiologies include a nonaggressive primary osseo us lesion such as an atypical intraosseous hemangioma or a metastasis. Further evaluation is advise d. 2. Acute 5% left anterior superior endplate compression fracture L4. 3. Mild lumbar degenerative spondylosis which in this patient with a developmentally narrow canal a nd epidural lipomatosis causes mild to moderate L3-4 and mild L4-5 and L5-S1 spinal stenosis.
== END 2017-01-06 06:59 | disposition home or self-care (01) ==
LOC: RAD 06:58
PROVIDERS: ATTEND Family Medicine
DX: R93.7 Abnormal findings on diagnostic imaging of other parts of musculoskeletal system (principal)

== ENCOUNTER 2017-01-09 11:51 | Outpatient (CLI) | END 2017-01-09 11:52 | LOC: AMBL 11:51 | PROVIDERS: ATTEND Internal Medicine | DX: M54.9 Dorsalgia, unspecified (principal); M79.605 Pain in left leg; M79.604 Pain in right leg; R20.0 Anesthesia of skin; W19.XXXA Unspecified fall, initial encounter ==

== ENCOUNTER 2017-01-29 13:09 | Outpatient (CLI) ==
--- NOTE | 2017-01-29 14:03 | DI ---
EXAM: Bone survey HISTORY: Plasmacytoma. COMPARISON: CT abdomen pelvis 12/22/2016 FINDINGS: The skull demonstrates no lytic lesion. The ribs are normal. There is degenerative disea se of the shoulders with no focal lytic or blastic lesion. There is degenerative disease of the cer vical spine which is poorly evaluated. There is mild degenerative change of the thoracic spine with scattered degenerative change. There has been vertebral plasty at L3. There is scattered degenera tive disease of the lumbar spine. The pelvis is normal with no lytic or blastic lesion. There is d egenerative change of the hips and knees. No lytic or blastic lesion is noted in the lower extremit ies. IMPRESSION: 1. No lytic or blastic lesion of the bones is identified. 2. Vertebral plasty at L3. 3. Scattered degenerative disease.
== END 2017-01-29 13:10 | disposition home or self-care (01) ==
LOC: RAD 13:09
PROVIDERS: ATTEND Family Medicine
DX: C90.30 Solitary plasmacytoma not having achieved remission (principal)

== ENCOUNTER 2017-06-24 09:37 | Outpatient (CLI) | END 2017-06-24 09:38 | disposition short-term general hospital (02) | LOC: AMBL 09:37 | PROVIDERS: ATTEND Internal Medicine | DX: R45.851 Suicidal ideations (principal) ==

== ENCOUNTER 2017-06-26 21:17 | Emergency (ER) ==
[2017-06-26 21:21] VITALS: BP 122/72; TEMP 98.9; BMI 34.7
[2017-06-26] MEDS ORDERED: PHENERGAN 25 MG/ML VIAL IM STA (21:33)
[2017-06-26] MEDS ORDERED: DILAUDID 2 MG/ML SYRINGE IM STA (21:33)
--- NOTE | 2017-06-26 21:47 | ED.PDOC ---
General ED Provider: Dr. SUSAN TOM-ER Chief Complaint: Back Pain Stated Complaint: my back hurts--i fell Time Seen by Physician: 21:45 Mode of Arrival: Wheelchair Information Source: Patient Exam Limitations: No limitations Primary Care Provider: ANGIE COLE Nursing and Triage Documentation Reviewed and Agree: Yes Musculoskeletal Complaint Exam - Hand/Wrist Complaint/Exam Onset/Duration: 2 days - Back Pain Complaint/Exam Mechanism of Injury: Reports: Trauma Onset/Duration: one hour Symptoms Are: Still present Timing: Constant Episodes Lasting: Minutes Initial Severity: Mild Current Severity: Moderate Location: Reports: Discrete Character: Reports: Dull, Aching, Throbbing, Spasmodic Aggravating: Reports: Movements, Lifting, Bending, Walking Alleviating: Reports: None Associated Signs and Symptoms: Reports: Pain with weight bearing. Denies: Swelling, Redness, Bruising, Fever, Weakness, Numbness, Tingling, Abdominal pain , Bladder incontinence, Bowel incontinence, Weight loss Related History: Reports: Similar episode Cauda Equina Risk Factors: Reports: None Epidural Abcess Risk Factors: Reports: None Focal Tenderness: Yes Paraspinal Muscle Tenderness: No Paraspinal Muscle Spasm: No Scoliosis: No Lordosis: No Kyphosis: No SLR Test: Right Negative, Left Negative Hip Motion Testing Pain: Right Negative, Left Negative Focal Weakness: Present: None Focal Sensory Loss: Present: None Gait: Present: Abnormal Differential Diagnoses: Arthritis, Fracture, Herniated Disk, Strain, Sprain Review of Systems - Review Of Systems Constitutional: Reports: No symptoms Eyes: Reports: No symptoms Ears, Nose, Mouth, Throat: Reports: No symptoms Respiratory: Reports: No symptoms Cardiac: Reports: No symptoms GI: Reports: No symptoms : Reports: No symptoms Musculoskeletal: Reports: Back pain Skin: Reports: Lumps Neurological: Reports: No symptoms Endocrine: Reports: No symptoms Hematologic/Lymphatic: Reports: No symptoms All Other Systems: Reviewed and Negative Past Medical History - Past Medical History Previously Healthy: No Endocrine: Reports: DM 2 Cardiovascular: Reports: VT, Hypertension Respiratory: Reports: COPD Hematological: Reports: None Gastrointestinal: Reports: None Genitourinary: Reports: None Neuro/Psych: Reports: Anxiety Musculoskeletal: Reports: Arthritis, Back Pain Cancer: Reports: None - Surgical History General Surgical History: Reports: CABG - Family History Family History: Reports: Diabetes - Social History Smoking Status: Current every day smoker, Heavy tobacco smoker Hx Substance Use: No Alcohol Screening: None Lives: With family - Immunizations Tetanus Shot up to Date: Yes Physical Exam - Physical Exam Appearance: Well-appearing, No pain distress, Well-nourished Eyes: OBDULIO, EOMI, Conjunctiva clear ENT: Ears normal, Nose normal, Oropharynx normal Neck: Supple Respiratory: Airway patent Cardiovascular: RRR, Pulses normal, No rub, No murmur GI/: Soft, Nontender, No masses, Bowel sounds normal, No Organomegaly Musculoskeletal: Limited ROM Skin: Warm, Dry, Normal color Neurological: Sensation intact Psychiatric: Affect appropriate, Mood appropriate Interpretation - Radiology Interpretation Radiology Interpretation By: Radiologist Radiology Results: Negative Exam Interpreted: CT Scan Critical Care Note - Critical Care Note Total Time (mins): 0 Course - Course Orders, Labs, Meds: Orders Category Date Time Status Hydromorphone HCl/Pf [Dilaudid 2 mg/ml Syringe] MEDS 06/26/17 21:33 Discontinued 2 mg IM ONCE STA Morphine Sulfate [Morphine 2 mg/ml Syringe] MEDS 06/26/17 22:03 Discontinued 2 mg IM ONCE STA Promethazine HCl [Phenergan 25 mg/ml Vial] MEDS 06/26/17 21:33 Discontinued 25 mg IM ONCE STA CT LUMBAR SPINE W/O CONTRAST Stat RADS 06/26/17 21:[address] PELVIS W/O CONTRAST Stat RADS 06/26/17 21:33 Completed Medications Discontinued Medications Generic Name Dose Route Start Last Admin Trade Name Freq PRN Reason Stop Dose Admin Hydromorphone HCl 2 mg 06/26/17 21:33 06/26/17 21:52 Dilaudid 2 Mg/Ml Syringe IM 06/26/17 21:34 2 mg ONCE STA Administration Morphine Sulfate 2 mg 06/26/17 22:03 Morphine 2 Mg/Ml Syringe IM 06/26/17 22:04 ONCE STA Promethazine HCl 25 mg 06/26/17 21:33 06/26/17 21:52 Phenergan 25 Mg/Ml Vial IM 06/26/17 21:34 25 mg ONCE STA Administration Vital Signs: Temp Pulse Resp BP Pulse Ox 06/26/17 21:17 98.9 F 75 20 122/72 96 Departure - Departure Time of Disposition: 22:05 Disposition: HOME SELF-CARE Discharge Problem: Back pain Qualifiers: Back pain location: low back pain Chronicity: acute Back pain laterality: midline Sciatica presence: without sciatica Qualified Code(s): M54.5 - Low back pain Instructions: Back Pain (ED) Condition: Good Pt referred to PMD for follow-up: Yes Additional Instructions: f/u with pcp or oncologist Allergies/Adverse Reactions: Allergies codeine Adverse Reaction (Verified 06/26/17 21:21) fentanyl Adverse Reaction (Verified 06/26/17 21:21) Home Medications: Ambulatory Orders Clopidogrel Bisulfate [Plavix] 75 mg PO DAILY 12/30/16 Cyclobenzaprine HCl [Flexeril] 10 mg PO BEDTIME 12/30/16 Isosorbide Mononitrate [Imdur] 30 mg PO DAILY 12/30/16 Metoprolol Tartrate [Lopressor] 25 mg PO BID 12/30/16 Omeprazole Magnesium [Prilosec Otc] 20 mg PO DAILY 12/30/16 Disposition Discussed With: Patient
--- NOTE | 2017-06-26 21:59 | CT ---
Exam: CT pelvis without IV contrast. Clinical indication: Fall with pelvic pain and history of cancer. TECHNIQUE: Axial unenhanced CT images through the bony pelvis were obtained followed by coronal and sagittal reformats. Findings: The visualized portions of the proximal bilateral femurs are intact. The bilateral hip joints are unremarkable. The bony pelvis is intact. The visualized portions of the lower lumbar spine are intact. There is no CT evidence of bony metastatic disease. There is no free fluid or gas within the pelvis. There is aortoiliac atherosclerotic vascular calcifications. The visualized bowel is unremarkable. There is a small umbilical hernia containing omental fat with hernia orifice measuring 1.6 cm in diam eter. Impression: 1. No acute pelvic fracture. 2. No evidence of bony metastatic disease within the pelvis. 3. Small umbilical hernia containing omental fat.
--- NOTE | 2017-06-26 22:02 | CT ---
Exam: CT lumbar spine without IV contrast. Clinical indication: Fall with back pain and history of cancer. TECHNIQUE: Axial unenhanced CT images from the lower thoracic spine through the upper sacrum were ob tained followed by coronal and sagittal reformats. Comparison is made to the prior MRI dated 01/06/[address] dated 12/16/2016. Findings: There are five non-rib bearing lumbar vertebra. There has been prior cementoplasty of the lytic metastatic lesion involving the L3 vertebral body wit h good distribution of cement throughout the body of the vertebral body. There is a large bony fragm ent displaced posteriorly narrowing the spinal canal to approximately 0.9 cm. There are no other areas of bony metastatic disease. There is no evidence of acute fracture. There is no evidence of spinal stenosis or neural foraminal narrowing at the T12-L1, L1-L2 or L2-L3 l evels. At the L3-L4 level note is again made of the retropulsed fragment which is associate with moderate bi lateral facet hypertrophic degenerative changes, causing mild spinal stenosis and moderate to severe bilateral neural foraminal narrowing. At the L4-L5 level there is a mild broad-based posterior disc bulge associate with bilateral facet hy pertrophic degenerative changes, causing moderate to severe right and mild left neural foraminal narr owing. At the L5-S1 level there is a posterior broad-based disc bulge associate with bilateral facet degener ative changes, causing mild to moderate right neural foraminal narrowing. There is aortoiliac atherosclerotic vascular calcifications. The remainder the visualized soft tissu es are unremarkable. Impression: 1. No acute lumbar fracture. 2. Prior cementoplasty of the lytic metastatic lesion involving the L3 vertebral body. 3. No other metastatic lesions. 4. Spinal stenosis and neural foraminal narrowing, as described above on the level by level basis.
[2017-06-26] MEDS ORDERED: MORPHINE 2 MG/ML SYRINGE IM STA (22:03)
== END 2017-06-26 22:58 | disposition home or self-care (01) ==
LOC: ED 21:17
DX: M54.5 Low back pain (principal); W19.XXXA Unspecified fall, initial encounter; F17.210 Nicotine dependence, cigarettes, uncomplicated
CPT/HCPCS: 96372; 99283

== ENCOUNTER 2017-08-24 11:12 | Outpatient (CLI) ==
--- NOTE | 2017-08-24 13:31 | CT ---
EXAM: CT chest with contrast HISTORY: Plasmacytoma of the bone, weight loss with pulmonary nodule. Patient had recent fall on th e right side. COMPARISON: Bone scan 12/24/[address] abdomen pelvis 08/24/2017 TECHNIQUE: Serial axial images of the chest were obtained after 75 ml of Omnipaque IV contrast was a dministered. These were obtained from the lung apices to the upper abdomen. FINDINGS: The thyroid is normal. Visualized vessels are unremarkable. There is no dissection, aneu rysm or stenosis. There is atherosclerotic disease of the coronary arteries. The heart is normal in size without pericardial effusion. There is no mediastinal, hilar or axillary pathologically enlarge d lymph nodes. Calcified right hilar lymph nodes are present. In the subcutaneous fat anterior to t he sternotomy wires is a round low attenuation 2.1 cm in diameter lesion with attenuation consistent with a cyst. There is no pneumothorax or pleural effusion. There is a dense calcification in the right upper lobe on image 22. There is minimal adjacent ground-glass. There is minimal ground-glass in the left upp er lobe on image 26. This may be due to respiratory motion. There is mild left basilar atelectasis. There is an ovoid 0.3 x 0.6 cm pulmonary nodule in the left lower lobe on image 39. This has been present since 12/22/2016 CT abdomen pelvis. The airways are patent. Soft tissues in the upper abdomen are better evaluated on same day CT abdomen pelvis. There is dege nerative disease of the shoulders. Sternotomy wires are present. The osseous structures are unremar kable. IMPRESSION: 1. Left lower lobe pulmonary nodule has been stable since 12/22/2016. CT in 6 months is recommended to further evaluate. 2. Calcified granuloma in the right lung with additional findings of old granulomatous disease. 3. Subcutaneous cyst anterior to the sternotomy wires. 4. Minimal bibasilar atelectasis. 4. Degenerative disease of the spine and shoulders with no focal lytic lesion.
--- NOTE | 2017-08-24 13:34 | CT ---
Exam: CT of the abdomen pelvis with intravenous contrast. Comparison: Bone survey performed on the same day. CT of the pelvis performed 06/26/2017. Bone leah vey performed 01/29/2017. CT abdomen pelvis performed 12/22/2016. Reason for exam: Plasmacytoma of bone weight loss. FINDINGS: Mild atelectasis in the partially imaged lung bases. The liver, spleen, adrenal glands, and gallbladder appear grossly unremarkable with old granulomas di sease seen within the spleen. There is fatty infiltration of the pancreas. Similar appearing renal hypodensities are statistically cysts. No hydronephrosis or hydroureter is s een in either kidney. No focal small bowel dilatation or transition point. The appendix is unremarkable. No intra-abdominal free air or pelvic free fluid. There is a fat containing periumbilical hernia. The bladder appears grossly unremarkable. Kyphoplasty/vertebral plasty changes are seen in the L3 vertebral body with vertebral body height los s. No suspicious appearing osteoblastic or osteolytic lesions. Impression: 1. No acute imaging findings are seen within the abdomen or pelvis. 2. Similar appearing renal hypodensities are statistically cysts. If clinical concern exists, ultra sound may be performed for further characterization. 3. Mild basilar atelectasis. 4. Fatty infiltration of the pancreas with old granulomas disease
--- NOTE | 2017-08-24 13:48 | DI ---
Exam: 13 x-rays of the axial and appendicular skeleton. Comparison: 01/29/2017. Reason for exam: Plasmacytoma FINDINGS: No new osseous lesions are seen within the axial or appendicular skeleton. Operative kennedy ges are seen after midline sternotomy with old granulomatous disease in the thorax. Moderate degener ative disease is seen in both shoulders. Kyphoplasty/vertebral plasty changes in the lumbar spine wi th degenerative disease at L5-S1 with intervertebral body disc space height loss. Contrast is seen w ithin the urinary bladder presumably from previous examination. There are moderate degenerative find ings seen in both hips and the lumbosacral spine. Impression: 1. No new osseous lesions are seen within the imaged portions of the axial or appendicular skeleton. 2. Similar appearing operative changes in the lumbar spine.
== END 2017-08-24 11:13 | disposition home or self-care (01) ==
LOC: RAD 11:12
PROVIDERS: ATTEND Internal Medicine Hematology & Oncology
DX: C90.30 Solitary plasmacytoma not having achieved remission (principal); R91.1 Solitary pulmonary nodule; R63.4 Abnormal weight loss

== ENCOUNTER 2017-11-27 18:38 | Inpatient (IN) ==
[2017-11-27] MEDS ORDERED: DILAUDID 1 MG/ML SYRINGE IM STA (19:21)
[2017-11-27] MEDS ORDERED: TORADOL IM STA (19:21)
--- NOTE | 2017-11-27 19:22 | ED.PDOC ---
General ED Provider: Dr. CARLOS HATCH Chief Complaint: Back Pain Stated Complaint: Back pain and leg pain, hx of bone cancer. Has been taking his pain medication- Methadone, Also took 50 units of Novolog instead of lantus. Has been given some food in the ER Accucheck low 100s. He states that he ran out of his Flexeril in May last year. He is following up with pain managment in 1-2 weeks. Admits to smoking 1PPD. States that the pain radiates to the right leg. Time Seen by Physician: 07:10 Mode of Arrival: Wheelchair Information Source: Patient Exam Limitations: No limitations Primary Care Provider: ANGIE COLE Nursing and Triage Documentation Reviewed and Agree: Yes Reviewed sepsis parameters & appropriate labs ordered?: No System Inflammatory Response Syndrome: Not Applicable Sepsis Protocol: For patient's 13 years and over: Temp is 96.8 and below OR 101 and greater Pulse >90 BPM Resp >20/minute Acutely Altered Mental Status Are patient's symptoms suggestive of a new infection, such as: -Pneumonia -Skin, Soft Tissue -Endocarditis -UTI -Bone, Joint Infection -Implantable Device -Acute Abdominal Infection -Wound Infection -Meningitis -Blood Stream Catheter Infection -Unknown System Inflammatory Response Syndrome: Not Applicable Musculoskeletal Complaint Exam - Back Pain Complaint/Exam Mechanism of Injury: Reports: No known trauma Onset/Duration: 1 week Symptoms Are: Still present Timing: Constant Initial Severity: Moderate Current Severity: Severe Location: Reports: Radiating (right lower extremity ) Character: Reports: Aching, Throbbing Aggravating: Reports: None Associated Signs and Symptoms: Denies: Swelling, Redness, Bruising, Fever, Weakness, Numbness, Tingling, Abdominal pain, Flank pain, Bladder incontinence, Bowel incontinence, Weight loss, Pain with weight bearing Related History: Reports: Similar episode TAD Risk Factors: Reports: Hypertension, Smoking AAA Risk Factors: Reports: Smoking, Hypertension Cauda Equina Risk Factors: Denies: Saddle anesthesia, Perineal anesthesia, Bladder dysfuntion, Bowel dysfunction, Lower extremity numbness, Lower extremity weakness Focal Tenderness: Yes (lower back ) Paraspinal Muscle Tenderness: Yes (on the right ) Paraspinal Muscle Spasm: Yes Scoliosis: No Lordosis: No Kyphosis: No SLR Test: Right Positive Hip Motion Testing Pain: Right Negative, Left Negative Focal Weakness: Present: None Focal Sensory Loss: Present: None Gait: Present: Unsteady Back Picture: 1 - tenderness and pain 2 - radiating pain Differential Diagnoses: Herniated Disk, Strain, Sprain Review of Systems - Review Of Systems Constitutional: Reports: Diaphoresis Eyes: Reports: No symptoms Ears, Nose, Mouth, Throat: Reports: No symptoms Respiratory: Reports: No symptoms Cardiac: Reports: No symptoms GI: Reports: No symptoms : Reports: No symptoms Musculoskeletal: Reports: Back pain, Joint pain, Muscle pain Skin: Reports: No symptoms Neurological: Reports: Anxiety Endocrine: Reports: No symptoms All Other Systems: Reviewed and Negative Past Medical History - Past Medical History Previously Healthy: No Endocrine: Reports: DM 2 Cardiovascular: Reports: OK, Hypertension Respiratory: Reports: COPD Hematological: Reports: None Gastrointestinal: Reports: None Genitourinary: Reports: None Neuro/Psych: Reports: Anxiety Musculoskeletal: Reports: Arthritis, Back Pain Cancer: Reports: Other (bone cancer ) - Surgical History General Surgical History: Reports: CABG - Family History Family History: Reports: Diabetes - Social History Smoking Status: Current some day smoker Hx Substance Use: No Alcohol Screening: None Physical Exam - Physical Exam Appearance: Ill-appearing, Obese Ill-appearing: Mild Pain Distress: Severe Eyes: OBDULIO, EOMI, Conjunctiva clear Neck: Supple Respiratory: Airway patent, Breath sounds equal, Breath sounds diminished, Respirations nonlabored Cardiovascular: RRR, Pulses normal, No rub, No murmur Musculoskeletal: Limited ROM (of the right lower extremity ) Skin: Warm, Dry Neurological: Sensation intact, Cranial nerves intact, Alert, Oriented Psychiatric: Anxious Interpretation - Manager Agricultural Rate: Normal Rhythm: Sinus Ectopy: None - EKG Interpretation Time of EKG #1: 20:15 Rate: Normal Rhythm: Sinus Ectopy: None [place]: NL ST Segment: Normal Interpretation: Normal EKG Re-Evaluation - Re-Evaluation Time of Re-Evaluation: 23:00 Status: Improved Pain Level: better, Appearance: NAD Additional Comments: Arousable. Physician Notification - Case Discussed Physician Notified: Dr. Jeronimo Time of Notification: 20:20 (admit to SCU ) Critical Care Note - Critical Care Note Total Time (mins): 0 Course - Course Hematology/Chemistry: 11/27/17 19:49 11/27/17 19:49 Orders, Labs, Meds: Lab Review 11/27/17 11/27/17 19:49 19:49 WBC 6.40 RBC 4.25 L Hgb 12.1 L Hct 37.1 L MCV 87.3 MCH 28.5 MCHC 32.6 RDW Coeff of Honorio 13.9 Plt Count 210 Immature Gran % (Auto) 0.2 Neut % (Auto) 58.0 Lymph % (Auto) 25.6 [place] % (Auto) 7.3 Eos % (Auto) 8.3 H Baso % (Auto) 0.6 Immature Gran # (Auto) 0.0 Neut # (Auto) 3.7 Lymph # (Auto) 1.6 [place] # (Auto) 0.5 Eos # (Auto) 0.5 Baso # (Auto) 0.0 Sodium 139 Potassium 3.9 Chloride 102 Carbon Dioxide 26 Anion Gap 14.9 BUN 21 H Creatinine 0.83 Estimated GFR (MDRD) 95.00 BUN/Creatinine Ratio 25.30 Glucose 60 L Calcium 8.0 L Total Bilirubin 0.3 AST 8 L ALT 7 L Alkaline Phosphatase 100 Total Protein 7.0 Albumin 3.4 Globulin 3.6 Albumin/Globulin Ratio 0.94 Orders Category Date Time Status OXYGEN Routine CARDIO 11/27/17 20:22 Ordered ACTIVITY .Early Mobilization for VTE Prevention CARE 11/27/17 20:23 Active BLOOD GLUCOSE MONITORING Q2HR CARE 11/27/17 20:25 Active GIVE HS SNACK 2100 CARE 11/27/17 20:25 Active INTAKE & OUTPUT Q8HR CARE 11/27/17 20:23 Active VITAL SIGNS Q4HR CARE 11/27/17 20:23 Active ADA 1800 RAMESH. DIET DIETARY 11/27/17 Breakfast Ordered HS SNACK DIETARY 11/27/17 Dinner Ordered ACCUCHECK (ED) [ED ACCUCHECK ASSESSMENT] .ONCE EMERGENCY 11/27/17 19:31 Active ED IV/MEDIPORT/POWERPORT .ONCE EMERGENCY 11/27/17 19:37 Active Glucose [ED ACCUCHECK ASSESSMENT] .ONCE EMERGENCY 11/27/17 19:02 Active BASIC METABOLIC PANEL DAILY@0600 LAB 11/28/17 06:00 Ordered BASIC METABOLIC PANEL DAILY@0600 LAB 11/29/17 06:00 Ordered CBC W/ AUTO DIFF DAILY@0600 LAB 11/28/17 06:00 Ordered CBC W/ AUTO DIFF DAILY@0600 LAB 11/29/17 06:00 Ordered CBC W/ AUTO DIFF Stat LAB 11/27/17 19:49 Completed COMPREHENSIVE METABOLIC PANEL Stat LAB 11/27/17 19:49 Completed 0.9 % Sodium Chloride [Saline Flush] MEDS 11/27/17 19:38 Ordered 1 syr IVF PRN PRN Dextrose 5 % and 0.9 % NaCl [Dextrose 5%-Ns IV Solution MEDS 11/27/17 19:38 Active ] 1,000 ml IV 125 mls/hr Enoxaparin Sodium [Lovenox] MEDS 11/28/17 09:00 Ordered 40 mg SUBCUT DAILY Glucagon,Human Recombinant [Glucagen] MEDS 11/27/17 19:39 Discontinued 1 mg IVP ONCE STA Hydromorphone HCl [Dilaudid 1 mg/ml Syringe] MEDS 11/27/17 19:21 Discontinued 1 mg IM ONCE STA Ketorolac Tromethamine [Toradol] MEDS 11/27/17 19:21 Discontinued 60 mg IM ONCE STA Ondansetron HCl/Pf [Zofran 4 mg/2 ml] MEDS 11/27/17 20:22 Ordered 4 mg IVP Q6H PRN Potassium Chloride/D5-0.9%NaCl [D5%-Ns-KCl 20 Meq/l IV MEDS 11/27/17 20:30 Ordered Sherice] 1,000 ml IV 125 mls/hr RESUSCITATION STATUS Routine OTHERS 11/27/17 20:22 Ordered Medications Generic Name Dose Route Start Last Admin Trade Name Freq PRN Reason Stop Dose Admin Clopidogrel Bisulfate 75 mg 11/28/17 09:00 Plavix PO DAILY JAYCEE Enoxaparin Sodium 40 mg 11/28/17 09:00 Lovenox SUBCUT DAILY JAYCEE Dextrose/Sodium Chloride 1,000 mls @ 125 mls/hr 11/27/17 19:38 11/27/17 19:56 Dextrose 5%-Ns Iv Solution IV 11/28/17 03:37 125 mls/hr .Q8H STA Administration Potassium Chloride/Dextrose/Sod Cl 1,000 mls @ 125 mls/hr 11/27/17 20:30 D5%-Ns-Kcl 20 Meq/L Iv Sherice IV .Q8H JAYCEE Isosorbide Mononitrate 30 mg 11/28/17 09:00 Imdur PO DAILY JAYCEE Methadone HCl mg 11/27/17 21:00 Methadone PO TID [facility] Metoprolol Tartrate 25 mg 11/27/17 21:00 Lopressor PO BID [facility] Non-Formulary Medication 20 mg 11/28/17 09:00 Omeprazole Magnesium [Prilosec Otc] PO DAILY JAYCEE Ondansetron HCl 4 mg 11/27/17 20:22 Zofran 4 Mg/2 Ml IVP Q6H PRN Nausea / Vomiting Sodium Chloride 1 syr 11/27/17 19:38 Saline Flush IVF PRN PRN To flush IV Discontinued Medications Generic Name Dose Route Start Last Admin Trade Name Freq PRN Reason Stop Dose Admin Glucagon 1 mg 11/27/17 19:39 11/27/17 19:55 Glucagen IVP 11/27/17 19:40 1 mg ONCE STA Administration Hydromorphone HCl 1 mg 11/27/17 19:21 11/27/17 19:26 Dilaudid 1 Mg/Ml Syringe IM 11/27/17 19:22 1 mg ONCE STA Administration Ketorolac Tromethamine 60 mg 11/27/17 19:21 11/27/17 19:26 Toradol IM 11/27/17 19:22 60 mg ONCE STA Administration Vital Signs: Temp Pulse Resp BP Pulse Ox 11/27/17 18:39 97.7 F 69 18 142/72 H 92 L Departure - Departure Time of Disposition: 23:01 Disposition: ADMITTED INPATIENT Discharge Problem: Backache, Radiculopathy of lumbar region, Hypoglycemia due to insulin Condition: Stable Pt referred to PMD for follow-up: Yes IPMP verified?: No Allergies/Adverse Reactions: Allergies codeine Adverse Reaction (Verified 11/27/17 18:45) fentanyl Adverse Reaction (Verified 11/27/17 18:45) Home Medications: Ambulatory Orders Clopidogrel Bisulfate [Plavix] 75 mg PO DAILY 12/30/16 Isosorbide Mononitrate [Imdur] 30 mg PO DAILY 12/30/16 Metoprolol Tartrate [Lopressor] 25 mg PO BID 12/30/16 Omeprazole Magnesium [Prilosec Otc] 20 mg PO DAILY 12/30/16 Methadone HCl [Methadone] 40 mg pe PO TID 11/27/17 Disposition Discussed With: Patient, Family
[2017-11-27] MEDS ORDERED: DEXTROSE 5%-NS IV SOLUTION 1,000 ML IV STA (19:38)
[2017-11-27] MEDS ORDERED: GLUCAGEN IVP STA (19:39)
[2017-11-27] MEDS ORDERED: ZOFRAN 4 MG/2 ML IVP PRN (20:22)
[2017-11-27 23:39] VITALS: BMI 38.1
[2017-11-28] MEDS: D5%-NS-KCL 20 MEQ/L IV SOL 1,000 ML IV SCH ×2 (00:01→07:00)
[2017-11-28] MEDS: LOPRESSOR PO SCH ×2 (00:02→08:47)
[2017-11-28] MEDS: METHADONE PO SCH ×3 (07:19→15:22)
[2017-11-28] MEDS ORDERED: PRILOSEC PO SCH (09:00)
[2017-11-28] MEDS ORDERED: PLAVIX PO SCH (09:00)
[2017-11-28] MEDS ORDERED: NON-FORMULARY MEDICATION (Omeprazole Magnesium [Prilosec Otc] 20 MG) PO SCH (09:00)
[2017-11-28] MEDS ORDERED: LOVENOX SUBCUT SCH (09:00)
[2017-11-28] MEDS ORDERED: IMDUR PO SCH (09:00)
[2017-11-28] MEDS ORDERED: KAYEXALATE SUSP PO STA (09:09)
[2017-11-28] MEDS ORDERED: SODIUM CHLORIDE 1,000 ML IV SCH (09:30)
[2017-11-28 15:56] VITALS: BP 142/72; TEMP 98.4
--- NOTE | 2017-12-01 14:19 | HP ---
DATE OF SERVICE: 11/28/17 CHIEF COMPLAINT: Back pain and low blood sugar HISTORY OF PRESENT ILLNESS: This is a 57-year-old male with history of bone cancer on multiple pain medications, diabetic patient. He did take, by mistake, an extra dose of Lantus insulin. He presented for worsening pain and has been evaluated in the emergency room. Dr. Arteaga saw the patient. Glucose was 60. The patient does have bone cancer. At that time, the patient was admitted to the hospital for further evaluation of hypoglycemia and back pain. REVIEW OF SYSTEMS: CONSTITUTIONAL: Weakness, tiredness. No fever, no chills. HEENT: Normal. ENDOCRINE: No weight gain; no weight loss. CVS: No chest pain. No PND, no orthopnea. No shortness of breath. No PND, no orthopnea. RESPIRATORY: No cough, no congestion. No hemoptysis. GI: No nausea, no vomiting. No abdominal pain. No melena. : No hematuria. No polyuria. MUSCULOSKELETAL: Back pain. PSYCHIATRIC: Not anxious. No depression. The patient has no suicidal or homicidal thoughts. SKIN: Intact, no open lesions. PAST MEDICAL HISTORY: Coronary artery disease Sleep apnea COPD Hypertension Dyslipidemia GERD Bone cancer Diabetes mellitus Depression PAST SURGICAL HISTORY: Bypass surgery PERSONAL HISTORY: He does smoke. No alcohol use. No illicit drug use. FAMILY HISTORY: Diabetes and heart problems. MEDICATIONS: Lopressor 25 mg p.o. b.i.d. Plavix 75 mg p.o. daily Imdur 30 mg p.o. daily Prilosec OTC 20 mg p.o. daily Methadone 40 mg p.o. t.i.d. ALLERGIES: CODEINE AND FENTANYL PHYSICAL EXAMINATION: GENERAL: The patient looks in mild discomfort from lower back pain. Awake, alert , oriented times three. V/S: BP 142/72, respiratory rate 18, heart rate 69, temperature 97.7, saturation 92. HEENT: Atraumatic, normocephalic. No scleral icterus. Pallor positive. Mucosa dry. NECK: Supple. No JVD, no bruit. No lymphadenopathy. No thyromegaly. HEART: S1, S2 normal. No murmur. No cyanosis or clubbing. No ascites. LUNGS: Clear to auscultation. No rales or rhonchi. ABDOMEN: Soft, nontender. Bowel sounds are active. No CVA tenderness. No rigidity or guarding. EXTREMITIES: No pedal edema. No cyanosis or clubbing MUSCULOSKELETAL: Normal joints, no swelling. NEUROLOGIC: The patient is awake, alert and oriented times three. SKIN: Intact; no open lesions. LYMPHATIC: No lymph nodes palpable. The patient did take regular insulin of 50 units instead of Lantus and is the reason for admission. LABS: Sodium 139, potassium 3.9, chloride 102, bicarb 26, BUN 21, creatinine 0.83, glucose 60. White count 6.40, hemoglobin 12.1, hematocrit 37.1, platelet count 210. ASSESSMENT: 1. HYPOGLYCEMIA WITH ACCIDENTAL INGESTION OF REGULAR INSULIN 60 UNITS INSTEAD OF LANTUS INSULIN 60 UNITS. 2. HISTORY OF CAD 3. BYPASS SURGERY 4. BONE CANCER ON CHEMOTHERAPY 5. HYPERTENSION 6. DYSLIPIDEMIA 7. CHRONIC PAIN SYNDROME ON OPIOD MEDICATION PLAN: 1. Admit patient to the regular floor for lower back pain, hypoglycemia and bone cancer. 2. Accu-Checks with coverage. 3. D5 Normal Saline 4. Continue home medications and pain medications. TIME SPENT: MORE THAN 75 minutes MTDD
--- NOTE | 2017-12-25 12:35 | PN ---
DATE OF SERVICE: 11/28/17 SUBJECTIVE: The patient was admitted with the hypoglycemia. The sugars have been better. The patient is getting the D5. The patient's potassium is 5.4. Otherwise, still having some lower back pain. Otherwise, no fever, chills, PND or orthpnea. REVIEW OF SYSTEMS: CONSTITUTIONAL: No fever, no chills. HEENT: Normal. ENDOCRINE: No weight gain, no weight loss. CVS: No angina symptoms. No CHF symptoms. No palpitations. No atypical chest pain for CAD. No shortness of breath. No PND, no orthopnea. RESPIRATORY: No cough, no hemoptysis. GI: No nausea, no vomiting. No abdominal pain. : No hematuria. No polyuria. MUSCULOSKELETAL: Low back pain. PSYCHIATRIC: Not anxious. No depression. No suicidal thoughts. No homicidal thoughts. SKIN: Intact. No rash. PHYSICAL EXAMINATION: V/S: Blood pressure 104/74, respiratory rate 16, heart rate 64, temperature 98, saturation 94 on 3 liters. HEENT: Normocephalic, atraumatic. Mucosa dry. NECK: Supple. No JVD, no carotid bruit. No lymphadenopathy. LUNGS: Decreased and clear. No rales or rhonchi. HEART: S1, S2 normal. No S3. No murmur, gallop or regurgitation. ABDOMEN: Soft, nontender. Bowel sounds active. No rigidity. No rebound or guarding. No CVA tenderness. EXTREMITIES: No pedal edema. No clubbing or cyanosis MUSCULOSKELETAL: No joint swelling. NEUROLOGIC: Awake, alert, oriented times three. No focal deficit. LYMPHATIC: No lymph nodes palpable. SKIN: Intact. LABS: White count 8.90, hemoglobin 12.5, hematocrit 39.0, platelet count 220, sodium 136, potassium 5.8, chloride 101, bicarb 25, BUN 26, creatinine 1.27, glucose 220. ASSESSMENT: 1. HYPOGLYCEMIA, ACCIDENTLY INSULIN WAS TAKING, REGULAR INSULIN 2. HYPERKALEMIA 3. CORONARY ARTERY DISEASE, BYPASS SURGERY 4. DIABETES 5. BONE CANCER ON CHEMOTHERAPY 6. CHRONIC PAIN SYNDROME PLAN: 1. Kayexalate, liquid potassium. 2. Out of bed to chair. 3. Activity as tolerated. TIME SPENT: More than 35 minutes MTDD
--- NOTE | 2017-12-25 12:39 | AMA ---
After repeat potassium, the potassium was 4.5. The patient insisted on going home. He says that the patient's dog was by itself at home. No one is there to take care of the dog and he has to leave. The patient's friend is in the room. Strictly explained that outpatient treatment is not finished at this time , as hypoglycemia may return. The patient did not listen. The patient insisted on going home and signed the AMA papers and left the hospital. FENG
== END 2017-11-28 16:15 | disposition left against medical advice (07) | DRG 918 ==
LOC: ED 18:38 → MEDSURG B 20:26 → SCU 20:39
PROVIDERS: ADMIT Emergency Medicine; ATTEND Emergency Medicine
DX: T38.3X1A Poisoning by insulin and oral hypoglycemic [antidiabetic] drugs, accidental (unintentional), initial encounter (principal); M54.16 Radiculopathy, lumbar region; E11.649 Type 2 diabetes mellitus with hypoglycemia without coma; R61 Generalized hyperhidrosis; G89.4 Chronic pain syndrome; E87.5 Hyperkalemia; I10 Essential (primary) hypertension; I25.10 Atherosclerotic heart disease of native coronary artery without angina pectoris; I25.2 Old myocardial infarction; F17.210 Nicotine dependence, cigarettes, uncomplicated; Z79.891 Long term (current) use of opiate analgesic; Z79.899 Other long term (current) drug therapy; Z85.830 Personal history of malignant neoplasm of bone; Z95.1 Presence of aortocoronary bypass graft
CPT/HCPCS: 36415; 80048; 80053; 82962; 84132; 85025; 87081; 93005; 93010; 96361; 96372; 96374; 96375; 99284

== ENCOUNTER 2017-12-01 10:50 | Outpatient (CLI) | END 2017-12-01 10:51 | disposition short-term general hospital (02) | LOC: AMBL 10:50 | PROVIDERS: ATTEND Emergency Medicine | DX: R40.4 Transient alteration of awareness (principal); R47.81 Slurred speech; T40.3X1A Poisoning by methadone, accidental (unintentional), initial encounter; M25.552 Pain in left hip; C80.1 Malignant (primary) neoplasm, unspecified; R53.83 Other fatigue; E11.9 Type 2 diabetes mellitus without complications ==

== ENCOUNTER 2018-01-02 12:47 | Observation (INO) ==
[2018-01-02 12:50] VITALS: BMI 34.8
[2018-01-02] MEDS ORDERED: DECADRON 4 MG/ML SDV IM STA (13:38)
--- NOTE | 2018-01-02 13:46 | CT ---
EXAM: Noncontrast CT of the abdomen and pelvis HISTORY: Left lower back pain COMPARISON: 08/24/2017 TECHNIQUE: Noncontrast CT of the abdomen and pelvis FINDINGS: Noncontrast technique limits evaluation of the abdominal viscera. Hepatic and splenic calcified gran ulomas are seen. The unenhanced gallbladder appears unremarkable. There is similar minimal adrenal g land thickening. The 1.9 cm left renal cyst is seen. A 1.3 cm left renal probable cyst is also seen. There is minimal bilateral perinephric fat stranding which appears minimally increased on the left. The pancreas is atrophic. No renal, ureteral or bladder calculi are identified. The stomach is underdistended. No abnormal small bowel dilation is seen. The colon appears within n ormal limits. The appendix is not abnormally enlarged. A small prostate calcification is seen. There is calcified atherosclerotic plaque of the aorta and i ts branches. No free air or free fluid is seen. There is a small fat-containing umbilical hernia. There is a healing fracture of the right 7th anterior rib. An L3 lytic lesion is again seen status po st cement placement, with fracture, retropulsion, spinal canal stenosis and bilateral foraminal steno sis. IMPRESSION: No evidence of urolithiasis. Minimal bilateral perinephric fat stranding, minimally increased on the left. A component inflammati on cannot be excluded. Similar appearing L3 lytic lesion, vertebroplasty and remote fracture. Healing fracture of the right 7th anterior rib. Atherosclerosis. Other chronic and incidental findings as described above.
--- NOTE | 2018-01-02 14:21 | ED.PDOC ---
General ED Provider: Dr. CARLOS HATCH Chief Complaint: Non-specific Complaint Stated Complaint: Patient states that he has a history of bone cancer and is on chronic pain medication with methadone. He states that he is feeling weak. Time Seen by Physician: 14:19 Mode of Arrival: Wheelchair Information Source: Patient Exam Limitations: No limitations Primary Care Provider: ANGIE COLE Nursing and Triage Documentation Reviewed and Agree: Yes Reviewed sepsis parameters & appropriate labs ordered?: No System Inflammatory Response Syndrome: Not Applicable Sepsis Protocol: For patient's 13 years and over: Temp is 96.8 and below OR 101 and greater Pulse >90 BPM Resp >20/minute Acutely Altered Mental Status Are patient's symptoms suggestive of a new infection, such as: -Pneumonia -Skin, Soft Tissue -Endocarditis -UTI -Bone, Joint Infection -Implantable Device -Acute Abdominal Infection -Wound Infection -Meningitis -Blood Stream Catheter Infection -Unknown System Inflammatory Response Syndrome: Not Applicable Review of Systems - Review Of Systems Constitutional: Reports: No symptoms Eyes: Reports: No symptoms Ears, Nose, Mouth, Throat: Reports: No symptoms Cardiac: Reports: No symptoms GI: Reports: No symptoms Musculoskeletal: Reports: Back pain Skin: Reports: No symptoms Neurological: Reports: Anxiety All Other Systems: Reviewed and Negative Past Medical History - Past Medical History Previously Healthy: No Endocrine: Reports: DM 2 Cardiovascular: Reports: NC, Hypertension Respiratory: Reports: COPD Hematological: Reports: None Gastrointestinal: Reports: None Genitourinary: Reports: None Neuro/Psych: Reports: Anxiety Musculoskeletal: Reports: Arthritis, Back Pain Cancer: 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) - Surgical History General Surgical History: Reports: CABG - Family History Family History: Reports: Diabetes - Social History Smoking Status: Current every day smoker, Heavy tobacco smoker Hx Substance Use: No Alcohol Screening: None Physical Exam - Physical Exam Appearance: Ill-appearing, Obese Ill-appearing: Mild Pain Distress: Severe Neck: Supple Respiratory: Airway patent, Breath sounds clear, Breath sounds equal, Respirations nonlabored Cardiovascular: RRR, Pulses normal, No rub, No murmur GI/: Soft, Nontender, No masses, Bowel sounds normal, No Organomegaly Musculoskeletal: ROM intact, No edema, No calf tenderness, Limited strength Skin: Warm, Dry, Normal color Neurological: Sensation intact, Motor intact, Reflexes intact, Cranial nerves intact, Alert, Oriented Psychiatric: Anxious Interpretation - Radiology Interpretation Radiology Interpretation By: Radiologist Radiology Results: No acute changes Exam Interpreted: CT Scan Physician Notification - Case Discussed Physician Notified: Gurjit Time of Notification: 14:00 (Transfer to the [facility] ) Physician Notified: Marcos and Dr Ridley Time of Notification: 15:45 (No indication for admission from oncology stand point. pain not amendible to radiation or chemo at this time. Sounds chronic pain and follow up with pain management. ) Consult With: Called Dr Cagle who accepted patient for admission to observation. Critical Care Note - Critical Care Note Total Time (mins): 0 Comments: Data inquiry done today 12/14/2017 Methadone Hcl 10MG 180/30 N/A [facility] [place] Nitish Weathers 12/07/2017 Tramadol Hcl 50MG 16/8 N/A [facility] [place] Simone, L[place] 11/24/2017 Methadone Hcl 10MG 180/30 N/A [facility] [place] Simone, [place] 11/17/2017 Methadone Hcl 10MG 30/5 N/A [facility] [place] Simone, 10/29/2017 Fentanyl 50MCG/HR 10/30 N/A [facility] [place] Simone, [place] Course - Course Hematology/Chemistry: 01/02/18 13:20 01/02/18 13:20 Orders, Labs, Meds: Lab Review 01/02/18 01/02/18 01/02/18 13:15 13:20 13:20 WBC 5.74 RBC 4.72 Hgb 13.2 L Hct 40.1 L MCV 85.0 MCH 28.0 MCHC 32.9 RDW Coeff of Honorio 13.9 Plt Count 224 Immature Gran % (Auto) 0.2 Neut % (Auto) 58.2 Lymph % (Auto) 30.7 [place] % (Auto) 6.1 Eos % (Auto) 4.5 Baso % (Auto) 0.3 Immature Gran # (Auto) 0.0 Neut # (Auto) 3.3 Lymph # (Auto) 1.8 [place] # (Auto) 0.4 Eos # (Auto) 0.3 Baso # (Auto) 0.0 Sodium 134 L Potassium 4.5 Chloride 102 Carbon Dioxide 29 Anion Gap 7.5 BUN 11 Creatinine 0.70 Estimated GFR (MDRD) 116.00 BUN/Creatinine Ratio 15.71 Glucose 244 H Hemoglobin A1c Calcium 8.0 L Total Bilirubin 0.3 AST 12 L ALT 6 L Alkaline Phosphatase 112 Total Protein 6.1 L Albumin 3.4 Globulin 2.7 Albumin/Globulin Ratio 1.26 Urine Color Urine Clarity Urine pH Ur Specific [place] Urine Protein Urine Glucose (UA) Urine Ketones Urine Blood Urine Nitrite Urine Bilirubin Urine Urobilinogen Ur Leukocyte Esterase Stl Occult Blood (IFOB) Negative Stool Occult Blood #2 No specimen received Stool Occult Blood #3 No specimen received Urine Opiates Screen Ur Oxycodone Screen Urine Methadone Screen Ur Propoxyphene Screen Ur Barbiturates Screen U Tricyclic Antidepress Ur Phencyclidine Scrn Ur Amphetamine Screen U Methamphetamines Scrn U Benzodiazepines Scrn Urine Cocaine Screen U Cannabinoids Screen 01/02/18 01/02/18 01/02/18 13:28 14:20 14:20 WBC RBC Hgb Hct MCV MCH MCHC RDW Coeff of Honorio Plt Count Immature Gran % (Auto) Neut % (Auto) Lymph % (Auto) [place] % (Auto) Eos % (Auto) Baso % (Auto) Immature Gran # (Auto) Neut # (Auto) Lymph # (Auto) [place] # (Auto) Eos # (Auto) Baso # (Auto) Sodium Potassium Chloride Carbon Dioxide Anion Gap BUN Creatinine Estimated GFR (MDRD) BUN/Creatinine Ratio Glucose Hemoglobin A1c 10.7 H Calcium Total Bilirubin AST ALT Alkaline Phosphatase Total Protein Albumin Globulin Albumin/Globulin Ratio Urine Color Yellow Urine Clarity Clear Urine pH 6.0 Ur Specific [place] 1.010 Urine Protein Negative Urine Glucose (UA) 1+ Urine Ketones Negative Urine Blood Negative Urine Nitrite Negative Urine Bilirubin Negative Urine Urobilinogen 0.2 Ur Leukocyte Esterase Negative Stl Occult Blood (IFOB) Stool Occult Blood #2 Stool Occult Blood #3 Urine Opiates Screen Positive Ur Oxycodone Screen Positive Urine Methadone Screen Positive Ur Propoxyphene Screen Negative Ur Barbiturates Screen Negative U Tricyclic Antidepress Negative Ur Phencyclidine Scrn Negative Ur Amphetamine Screen Negative U Methamphetamines Scrn Negative U Benzodiazepines Scrn Negative Urine Cocaine Screen Negative U Cannabinoids Screen Negative Orders Category Date Time Status ADMIT OBSERVATION [PLACE PATIENT OBSERVATION] .TO ADMISSION 01/02/18 16:00 Active MEDSURG (MONITORED BED) TELEMETRY MONITORING TELE CARE 01/02/18 16:01 Active ED IV/MEDIPORT/POWERPORT .ONCE EMERGENCY 01/02/18 14:22 Active CBC W/ AUTO DIFF Stat LAB 01/02/18 13:20 Completed COMPREHENSIVE METABOLIC PANEL Stat LAB 01/02/18 13:20 Completed OCCULT BLOOD, STOOL Stat LAB 01/02/18 13:15 Completed URINALYSIS C & S IF INDICATED Stat LAB 01/02/18 14:20 Completed 0.9 % Sodium Chloride [Saline Flush] MEDS 01/02/18 14:22 Ordered 1 syr IVF PRN PRN Dexamethasone 4 mg/ml Inj [Decadron 4 mg/ml Sdv] MEDS 01/02/18 13:38 Discontinued 8 mg IM ONCE STA Sodium Chloride 0.9% [Sodium Chloride] 1,000 ml MEDS 01/02/18 15:[address] ABD/PEL WO RENAL STONE PROT Stat RADS 01/02/18 13:10 Completed Medications Generic Name Dose Route Start Last Admin Trade Name Freq PRN Reason Stop Dose Admin Aspirin 81 mg 01/03/18 09:00 Aspirin Ec PO DAILY [facility] Enoxaparin Sodium 40 mg 01/03/18 09:00 Lovenox SUBCUT DAILY JAYCEE Sodium Chloride 1,000 mls @ 75 mls/hr 01/02/18 16:30 01/02/18 17:31 Sodium Chloride IV 75 mls/hr .[id number] JAYCEE Administration Insulin Human Regular 0 - 8 unit 01/02/18 16:35 Humulin R SUBCUT PRN PRN Hyperglycemica Protocol Isosorbide Mononitrate 30 mg 01/03/18 09:00 Imdur PO DAILY [facility] Methadone HCl mg 01/02/18 21:00 Methadone PO TID [facility] Metoprolol Tartrate 25 mg 01/02/18 21:00 Lopressor PO BID JAYCEE Morphine Sulfate 2 mg 01/02/18 16:21 Morphine 2 Mg/Ml Syringe IVP Q4H PRN Severe Pain Non-Formulary Medication 20 mg 01/03/18 09:00 Omeprazole Magnesium [Prilosec Otc] PO DAILY JAYCEE Ondansetron HCl 4 mg 01/02/18 16:21 Zofran 4 Mg/2 Ml IVP Q6H PRN Nausea / Vomiting Sodium Chloride 1 syr 01/02/18 14:22 01/02/18 15:15 Saline Flush IVF 1 syr PRN PRN Administration To flush IV Discontinued Medications Generic Name Dose Route Start Last Admin Trade Name Paul PRN Reason Stop Dose Admin Dexamethasone Sodium Phosphate 8 mg 01/02/18 13:38 01/02/18 13:50 Decadron 4 Mg/Ml Sdv IM 01/02/18 13:39 8 mg ONCE STA Administration Sodium Chloride 1,000 mls @ 1,000 mls/hr 01/02/18 15:13 01/02/18 15:15 Sodium Chloride IV 01/02/18 16:12 1,000 mls/hr BOLUS STA Administration Vital Signs: Temp Pulse Resp BP Pulse Ox 01/02/18 12:47 96.4 F L 61 20 128/71 92 L Departure - Departure Time of Disposition: 16:32 Disposition: PLACED OBSERVATION Discharge Problem: Plasmacytoma of bone Back pain Qualifiers: Back pain location: low back pain Chronicity: chronic Back pain laterality: left Sciatica presence: without sciatica Qualified Code(s): M54.5 - Low back pain Condition: Stable Pt referred to PMD for follow-up: No IPMP verified?: Yes (noted the last Methadone filled was 12/14/2017 total of 180 for 30 days. ) Allergies/Adverse Reactions: Allergies codeine Adverse Reaction (Verified 01/02/18 12:53) fentanyl Adverse Reaction (Verified 01/02/18 12:53) Home Medications: Ambulatory Orders Isosorbide Mononitrate [Imdur] 30 mg PO DAILY 12/30/16 Metoprolol Tartrate [Lopressor] 25 mg PO BID 12/30/16 Omeprazole Magnesium [Prilosec Otc] 20 mg PO DAILY 12/30/16 Methadone HCl [Methadone] 40 mg pe PO TID 11/27/17 Aspirin [Aspir-Low] 81 mg PO DAILY 01/02/18
[2018-01-02] MEDS ORDERED: LACTATED RINGERS 1,000 ML IV STA (14:22)
[2018-01-02] MEDS ORDERED: SODIUM CHLORIDE 1,000 ML IV STA (15:13)
[2018-01-02] MEDS ORDERED: MORPHINE 2 MG/ML SYRINGE IVP PRN (16:21)
[2018-01-02] MEDS ORDERED: ZOFRAN 4 MG/2 ML IVP PRN (16:21)
[2018-01-02] MEDS ORDERED: SODIUM CHLORIDE 1,000 ML IV SCH (16:30)
[2018-01-02] MEDS ORDERED: HUMULIN R SUBCUT PRN (16:35)
[2018-01-02] MEDS ORDERED: MORPHINE 2 MG/ML SYRINGE ONE (18:10)
[2018-01-02] MEDS ORDERED: LOPRESSOR ONE (19:24)
[2018-01-02] MEDS: METHADONE PO SCH (20:09)
[2018-01-02] MEDS: LIPITOR PO SCH (20:09)
[2018-01-02] MEDS ORDERED: LOPRESSOR PO SCH ×2 (21:00)
[2018-01-02] MEDS ORDERED: NEURONTIN PO SCH ×2 (21:00)
[2018-01-02] MEDS ORDERED: METHADONE PO SCH (21:00)
[2018-01-02] MEDS ORDERED: LANTUS SUBCUT SCH ×2 (21:00)
[2018-01-03] MEDS: METHADONE PO SCH ×3 (04:04→20:00)
[2018-01-03] MEDS ORDERED: NEURONTIN PO SCH (05:00)
--- NOTE | 2018-01-03 06:23 | DI ---
EXAM: Three views of the left toes HISTORY: Painful left great toe. COMPARISON: Bone scan 12/24/2016 FINDINGS: There is no displaced fracture or dislocation of the left foot. There is soft tissue swell ing of the great toe. Joint spaces demonstrate mild degenerative change and osteophyte formation of the first MTP joint. Limited views of the osseous structures in the midfoot are normal. IMPRESSION: Swelling of the great toe with no acute osseous abnormality and mild degenerative change of the first MTP joint.
[2018-01-03] MEDS: LOVENOX SUBCUT SCH (08:35)
[2018-01-03] MEDS: LOPRESSOR PO SCH ×2 (08:35→20:01)
[2018-01-03] MEDS: IMDUR PO SCH (08:35)
[2018-01-03] MEDS: PRILOSEC PO SCH (08:35)
[2018-01-03] MEDS: ASPIRIN EC PO SCH (08:35)
[2018-01-03] MEDS ORDERED: NON-FORMULARY MEDICATION (Omeprazole Magnesium [Prilosec Otc] 20 MG) PO SCH (09:00)
[2018-01-03] MEDS ORDERED: LANTUS SUBCUT SCH ×2 (11:00→11:11)
[2018-01-03] MEDS: HUMULIN R SUBCUT PRN ×3 (11:12→20:01)
[2018-01-03] MEDS ORDERED: LANTUS SUBCUT STA (11:15)
[2018-01-03] MEDS: NEURONTIN PO SCH ×2 (12:08→20:01)
[2018-01-03] MEDS: LIPITOR PO SCH (20:01)
[2018-01-04] MEDS: METHADONE PO SCH ×3 (04:15→20:21)
[2018-01-04] MEDS: NEURONTIN PO SCH ×3 (04:15→20:20)
[2018-01-04] MEDS: PRILOSEC PO SCH (05:33)
[2018-01-04] MEDS: HUMULIN R SUBCUT PRN ×2 (06:28→20:21)
[2018-01-04] MEDS: ASPIRIN EC PO SCH (08:37)
[2018-01-04] MEDS: LOPRESSOR PO SCH ×2 (08:37→20:21)
[2018-01-04] MEDS: LOVENOX SUBCUT SCH (08:37)
[2018-01-04] MEDS: IMDUR PO SCH (08:37)
[2018-01-04] MEDS: LANTUS SUBCUT SCH (08:37)
--- NOTE | 2018-01-04 10:39 | PN ---
DATE OF VISIT: 01/03/18 SUBJECTIVE: The patient is alert and responsive. He is sitting in the wheelchair with the girlfriend beside him in the recliner. Both of them are watching television. Pain in the back as well as hips is better. His diabetes is uncontrolled. The patient had been smoking according to the nurse, also was buying candy. I did talk to him about this and I told him that he needs to follow a good diet with regards to his diabetes. I tried to measure the fasting insulin this morning as well as the plasma C-peptide level and ANTHONY 65 auto antibody. Advised him to stop smoking. He already had a previous heart surgery and to lose weight and gradually increase exercise such as walking. He did tell me that he could not walk before but with the Methadone he was able to walk, says the pain in the legs were much better with the Methadone. OBJECTIVE: V/S: At 5:35 p.m. today: Temperature 98.5, pulse 64, BP 103/54, respiratory rate 18, oxygen saturation 96 on room air. ASSESSMENT: 1. Lower lumbar pain and hip pain, improved. 2. Diabetes mellitus, still uncontrolled; this patient is probably a Type 2 diabetic rather than other forms of diabetes. Will await for the results of the tests that were done. 3. This patient has an appointment with pain management and will be discharged to be followed by his primary provider. FENG
[2018-01-04] MEDS ORDERED: EPSOM SALT TP ONE (13:03)
[2018-01-04] MEDS: LIPITOR PO SCH (20:21)
[2018-01-05] MEDS: METHADONE PO SCH (04:48)
[2018-01-05 05:02] VITALS: BP 132/76; TEMP 98.3
[2018-01-05] MEDS: NEURONTIN PO SCH (05:39)
[2018-01-05] MEDS: PRILOSEC PO SCH (05:39)
[2018-01-05] MEDS: IMDUR PO SCH (08:39)
[2018-01-05] MEDS: ASPIRIN EC PO SCH (08:39)
[2018-01-05] MEDS: LOVENOX SUBCUT SCH (08:39)
[2018-01-05] MEDS: LOPRESSOR PO SCH (08:39)
[2018-01-05] MEDS: LANTUS SUBCUT SCH (08:43)
--- NOTE | 2018-01-28 13:45 | DS ---
PATIENT IDENTIFICATION: 57 year old male presented to the emergency room because of increasing pain, mostly in the hips and both legs. This patient also has pain in the back and had a history of bone carcinoma. The diagnosis that I can find is plasmacytoma. This patient had lytic lesion in L3 and also had a previous kyphoplasty probably secondary to a fracture in that area. The patient had been on Methadone to control pain. He had been to the Pain Management and requested that the medication be reduced and so the medication was reduced to 20 mg three times a day from 40 mg. He also mentioned to me that he can take 30 mg three times a day instead of 20 if the pain is not controlled. He claimed that he did run out of medication before the scheduled time and so his pain has increased in intensity because of the absence of medication. Drug screen however was positive for Methadone, as well as Oxycodone from opiates. The Methadone was used to substitute the other two medications. He told me that he had some of the remnants of his previous medications, so the Oxycodone and [place] and so he took them. I did ask him about the Methadone, which was still positive. HOSPITAL COURSE: The patient while in the hospital was continued on Methadone 40 mg p.o. every 8 hours. The Morphine was given in the emergency room at 2 mg IV and was continued and this was discontinued since the patient is allergic to Codeine and if he truly is allergic to this medication that he might develop some reaction with continued use. He did not have any immediate reaction while he was in the emergency room given that the Morphine was given intravenously. His urinalysis was unremarkable, except for 1+ sugar. His blood sugar was 244 mg percent on admission. The patient on the following day, 01/03/18 was feeling better. The pain seemed to be controlled. His A1C was 10.7. I did discuss that with him thoroughly. I did advise him that his blood sugar is way uncontrolled. His fasting blood sugar this morning, 01/03/2018 was 306. Fasting Insulin level is 9. There was an Insulin level done yesterday 12.6 and it may have some residual. This patient's Insulin was withheld until we could get the fasting level. His C-Peptide level is 3.4 and the ANTHONY is less than 5. General appearance is good. LUNGS: Again, was clear, except for the bases with a few rales. No wheezing. HEART: Normal sinus rhythm. EXTREMITIES: He has movement of all extremities and he is not complaining of so much pain today. We need to continue hospitalization and see if his sugar will come under control. His occult blood was negative. The patient on the day before discharge was alert, oriented times four. Not dyspneic, nor tachypneic. His hemoglobin is down to 12.9 and hematocrit 38.4. This is just a slight increase from admission. His electrolytes were normal and his creatinine is normal, as well BUN and GFR is 100, fasting blood sugar 191, calcium 7.7. The rest of the chemistries were unremarkable. The patient was continued on his medications. He was also given a sliding scale, regular Insulin. The patient on the day of discharge was alert with movement of all extremities and no significant pain. The patient was advised to continue his medication, Aspirin, Lasix, Lipitor, Gabapentin, Insulin, Imdur, Methadone, Lopressor 50 mg twice a day, Omeprazole 20 mg daily. The patient has an appointment with Pain Management today at 9:50 a.m. He is advised to continue to seek medical care with the [facility] and keep his appointment January 12 at 10:[address] Mendosa. The x-ray of left big toe showed no remarkable abnormalities. The nail that was near completely avulsed was removed without any difficulty. No anesthetic was used. The nail bed also was dry and clean without any drainage. It did culture staph aureus, but since there is no ulceration or drainage, no antibiotic was given for this purpose. FINAL DIAGNOSES: 1. PAIN BILATERAL HIPS AND LEGS AND LUMBAR, SECONDARY TO HISTORY OF BONE DISEASE-PLASMACYTOMA 2. DIABETES MELLITUS TYPE II 3. HISTORY OF HYPERTENSION 4. HISTORY OF MYOCARDIAL INFARCTION AND BYPASS SURGERY 2007 5. HISTORY OF CHRONIC TOBACCO USE AND ABUSE, PERSISTENT 6. HISTORY OF CHRONIC OBSTRUCTIVE PULMONARY DISEASE 7. HISTORY OF WEIGHT LOSS, REVERSED PROGNOSIS: Guarded. The patient, again, was advised to keep appointments that are already on schedule with other providers. FENG
--- NOTE | 2018-01-28 15:26 | HP ---
CHIEF COMPLAINT: Generalized musculoskeletal pain, more at the lumbar area. SOURCE OF HISTORY: Patient, plus notes from the emergency room, triage, plus MD. HISTORY OF PRESENT ILLNESS: The patient claimed to have pain in the last three to four days which had increased in intensity involving mostly the back, as well as hips and legs. He claimed that the pain is intensified by eating. He also claimed that he had a bone carcinoma. The patient had a workup at the emergency room consisting of a CT scan of the abdomen and pelvis without contrast. No significant acute findings. There is some minimal bilateral perinephric stranding, slightly worse on the left. Similar appearing L3 lytic lesion findings compatible with vertebral plasty. Fracture right 7th rib healing. CBC unremarkable. Anemia 13.2 grams hemoglobin. 40.1 hematocrit. Blood sugar 244 mg percent. E GFR 116, alkaline phosphatase 112. The rest of the chemistries are unremarkable. The patient was then admitted to this hospital after admission to [facility] [place] was declined. The reason for admission is pain, hip and legs, plus back with abnormal L3 findings. The blood sugar is also uncontrolled at 244 mg percent. PAST PERSONAL HISTORY: The patient had hypertension, diabetes mellitus on Insulin, myocardial infarction and CABG 2007, COPD, chronic anxiety, chronic back pain, history of carcinoma of the bone, lumbar spine, chronic tobacco use and abuse, persistent. History of ethanol abuse and drug abuse. History of kyphoplasty, probably L3 or L2. History of obesity. FAMILY HISTORY: Maternal side had heart problems, as well as diabetes. Paternal side had some malignancy. SOCIAL HISTORY: The patient is single and resides with family. He does smoke cigarettes and continued to smoke in spite of his acute myocardial infarction with CABG. MEDICATIONS: Prior to this admission consisted of the following: Lopressor 50 mg twice a day Imdur 30 mg daily Prilosec 20 mg daily Methadone 40 mg three times a day Lipitor 10 mg at bedtime Lasix 40 mg prn p.o. Aspirin 81 mg daily Lantus 50 Units subcutaneously at bedtime Gabapentin 300 mg capsule three times a day ALLERGIES: The patient is allergic to Codeine and Fentanyl REVIEW OF SYSTEMS: CONSTITUTIONAL: The patient has no fever or chills, but complains of being weak. BLIND ESCORT: Denies any headaches, syncopal episodes or seizure disorder. No episodes of disorientation. VISUAL: Denies any double vision, blurred vision or transient loss of vision. AUDITORY: The patient is able to hear well and denies any pain or drainage on both ears. No tinnitus. RESPIRATORY: The patient has some cough, but no shortness of breath with usual exertion. He is still smoking. CARDIOVASCULAR: Denies any chest pain or chest oppression at this time. This patient had a previous myocardial infarction and CABG surgery 2007. GASTROINTESTINAL: No nausea or anorexia or abdominal pain or change in bowel habits. GENITOURINARY: Denies any burning on urination. MUSCULOSKELETAL: The patient has pain more on the hips and legs, but also in the back. This patient was diagnosed to have a malignancy in the lumbar spine. The CT scan does show lytic lesion on L3 with previous kyphoplasty. ENDOCRINE: The patient does have a diagnosis of diabetes mellitus and is on Insulin, Lantus 50 units every evening only. He does not have polyuria or polydipsia. INTEGUMENT: Denies any rash or pruritus. HEMATOLOGIC: The patient has no history of prolonged bleeding with surgery or injuries. PSYCHIATRIC: Affect appears to be normal. PHYSICAL EXAMINATION: GENERAL: We have a 57 year old male admitted to the hospital because of pain in both hips and legs, as well as back with history of bone carcinoma. The pain is rated at 10 on a scale of 0-10. He claimed that he did have any Methadone or use the prescription ahead of schedule. VITAL SIGNS: On admission to the floor showed a temperature of 98.5, pulse of 73 , blood pressure 151/81, respiratory rate 16, oxygen saturation 98 at room air. HEAD: Unremarkable. Scalp with no active dermatitis. FACE: Symmetrical and equal with no facial weakness and no significant tenderness in the frontal or maxillary sinus areas to palpation under pressure. EYES: Pupils equal/reactive to light about 4 mm in size and round. Conjunctivae not pale. Sclerae not icteric. MOUTH: Unremarkable. THROAT: No inflammation, tumors or exudate. NECK: No masses. No bruit. No tenderness. No rigidity. CHEST: Essentially symmetrical and equal with good expansion. Scar in the median sternotomy from previous cardiac surgery 2007. LUNGS: Breath sounds are heard in both sides, diminished with some few rales at the bases. No wheezing. HEART: Audible and regular with good tones. No murmurs. ABDOMEN: Protuberant, soft with no remarkable tenderness. No guarding. Bowel sounds are active. No masses palpable and no bruit. EXTERNAL GENITALIA: Not examined. RECTAL: Not performed. LOWER EXTREMITIES: Essentially symmetrical and equal and edematous. The posterior tibials are absent. UPPER EXTREMITIES: Symmetrical and equal. ASSESSMENT: 1. BILATERAL HIP AND LEG PAIN WITH INCREASED INTENSITY, ETIOLOGY UNDETERMINED 2. CHRONIC LUMBAR PAIN WITH HISTORY OF BONE TUMOR, PLASMACYTOMA 3. LYTIC LESION L3 AND WITH PREVIOUS KYPHOPLASTY PROBABLY DUE TO FRACTURE 4. HISTORY OF CORONARY ARTERY DISEASE, STATUS POST TX AND POST CABG 2007 5. HISTORY OF HYPERTENSION 6. HISTORY OF TYPE II DIABETES MELLITUS PROBABLE 7. CHRONIC TOBACCO USE AND ABUSE, PERSISTENT 8. HISTORY OF CHRONIC OBSTRUCTIVE PULMONARY DISEASE 9. HISTORY OF CHRONIC PAIN MANAGED BY PAIN MANAGEMENT MTDD
--- NOTE | 2018-01-29 08:47 | PN ---
DATE OF VISIT: 01/04/18 The patient is alert and oriented. The patient earlier had a episode of hypoglycemia. He refused to eat the food that was given to him, except he wanted bread. He was advised about the bread and his diabetes mellitus. The nail was removed without any difficulty today and the patient has not had any complaints post removal. This patient had been going outside of the hospital, most probably to smoke. This patient was advised against smoking also because of his heart disease and also with his diabetes. The patient does not seem to be interested to follow a healthier lifestyle. VITAL SIGNS: 01/04/2018 at 1:54 p.m. showed a temperature of 98.2, pulse 70, blood pressure 149/83, respiratory rate 18, oxygen saturation 98 at room air. HEART: Normal sinus rhythm. LUNGS: Breath sounds are diminished, but audible with a fair amount of air exchange with a few rales at the bases. The patient's condition seemed to be stable. He had a hypoglycemic episode and his blood sugar on accucheck was 82 mg percent. The patient was advised about a balanced calorie diet for being diabetic. He is on Insulin. His hemoglobin A1C was elevated and his diabetes mellitus is uncontrolled. I would leave that to her primary provider with regards to the diabetic management. The prognosis would be poor if he continues to disregard consequences of his illness or disease. FENG
== END 2018-01-05 09:30 | disposition home or self-care (01) ==
LOC: ED 12:47 → MEDSURG A 16:01
PROVIDERS: ADMIT General Practice; ATTEND General Practice
DX: M54.5 Low back pain (principal); G89.29 Other chronic pain; M25.552 Pain in left hip; M25.551 Pain in right hip; M79.605 Pain in left leg; M79.604 Pain in right leg; C90.30 Solitary plasmacytoma not having achieved remission; E11.65 Type 2 diabetes mellitus with hyperglycemia; I10 Essential (primary) hypertension; J44.9 Chronic obstructive pulmonary disease, unspecified; Z79.891 Long term (current) use of opiate analgesic; I25.2 Old myocardial infarction; R53.1 Weakness; F17.210 Nicotine dependence, cigarettes, uncomplicated; Z95.1 Presence of aortocoronary bypass graft; Z79.4 Long term (current) use of insulin; Z79.899 Other long term (current) drug therapy
CPT/HCPCS: 36415; 74176; 80053; 80306; 81001; 82272; 82962; 83036; 83090; 83519; 83525; 84145; 84153; 84681; 85025; 87070; 87186; 96360; 96361; 96372; 96374; 97802; 99284

== ENCOUNTER 2018-02-02 20:38 | Emergency (ER) ==
[2018-02-02 20:39] VITALS: BMI 34.8
[2018-02-02 20:50] VITALS: BP 153/89; TEMP 98.4
[2018-02-02] MEDS ORDERED: PHENERGAN 25 MG/ML VIAL IM STA (20:53)
[2018-02-02] MEDS ORDERED: MORPHINE 2 MG/ML SYRINGE IM STA (20:53)
[2018-02-02] MEDS ORDERED: DEMEROL 50 MG/ML VIAL IM STA (21:02)
--- NOTE | 2018-02-02 21:34 | ED.PDOC ---
General ED Provider: Dr. SUSAN TOM-ER Chief Complaint: Hip Pain/Injury Stated Complaint: i have bone ca--my left hip hurts Time Seen by Physician: 20:45 Information Source: Patient Exam Limitations: No limitations Primary Care Provider: ALEX EDWARD Nursing and Triage Documentation Reviewed and Agree: Yes Reviewed sepsis parameters & appropriate labs ordered?: Yes System Inflammatory Response Syndrome: Not Applicable Sepsis Protocol: For patient's 13 years and over: Temp is 96.8 and below OR 101 and greater Pulse >90 BPM Resp >20/minute Acutely Altered Mental Status Are patient's symptoms suggestive of a new infection, such as: -Pneumonia -Skin, Soft Tissue -Endocarditis -UTI -Bone, Joint Infection -Implantable Device -Acute Abdominal Infection -Wound Infection -Meningitis -Blood Stream Catheter Infection -Unknown Musculoskeletal Complaint Exam - Hip/Pelvis Complaint/Exam Location of Pain: Reports: Left, Hip Mechanism of Injury: Reports: No known trauma Onset/Duration: several days Symptoms Are: Still present Initial Severity: Mild Current Severity: Moderate Location: Reports: Discrete (left hip) Character: Reports: Dull, Aching, Stiffness Aggravating: Reports: Movement, Weight bearing Alleviating: Reports: None Associated Signs and Symptoms: Denies: Swelling, Redness, Bruising, Fever, Weakness, Dizziness, Syncope, Abdominal pain, Knee pain Able to Bear Weight: Yes Septic Arthritis Risk Factors: Reports: None Pelvis Palpation: Stable Tenderness: Present: Left Range of Motion Limited In: Present: Flexion, Extension, Abduction, Adduction NV Bundle Intact Distal to Injury: Yes Differential Diagnoses: Bursitis, Fracture, Infection, Other (ca) Review of Systems - Review Of Systems Constitutional: Reports: No symptoms Eyes: Reports: No symptoms Ears, Nose, Mouth, Throat: Reports: No symptoms Respiratory: Reports: No symptoms Cardiac: Reports: No symptoms GI: Reports: No symptoms : Reports: No symptoms Musculoskeletal: Reports: Joint pain, Muscle pain Skin: Reports: No symptoms Neurological: Reports: No symptoms Endocrine: Reports: No symptoms Hematologic/Lymphatic: Reports: No symptoms All Other Systems: Reviewed and Negative Past Medical History - Past Medical History Previously Healthy: No Endocrine: Reports: DM 2 Cardiovascular: Reports: MD, Hypertension Respiratory: Reports: COPD Hematological: Reports: None Gastrointestinal: Reports: None Genitourinary: Reports: None Neuro/Psych: Reports: Anxiety Musculoskeletal: Reports: Arthritis, Back Pain Cancer: 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) - Surgical History General Surgical History: Reports: CABG - Family History Family History: Reports: Diabetes - Social History Smoking Status: Current every day smoker, Heavy tobacco smoker Hx Substance Use: No Alcohol Screening: None - Immunizations Tetanus Shot up to Date: Yes Physical Exam - Physical Exam Appearance: Well-appearing Pain Distress: Moderate Eyes: OBDULIO ENT: Ears normal, Nose normal, Oropharynx normal Neck: Supple Respiratory: Airway patent, Breath sounds clear, Breath sounds equal, Respirations nonlabored Cardiovascular: RRR, Pulses normal, No rub, No murmur GI/: Soft, Nontender, No masses, Bowel sounds normal, No Organomegaly Musculoskeletal: Limited ROM Skin: Warm, Dry, Normal color Neurological: Sensation intact, Motor intact, Reflexes intact, Cranial nerves intact, Alert, Oriented Psychiatric: Affect appropriate, Mood appropriate Interpretation - Radiology Interpretation Radiology Interpretation By: Radiologist Radiology Results: Negative Exam Interpreted: CT Scan Re-Evaluation - Re-Evaluation Time of Re-Evaluation: 22:22 Status: Improved Vital Signs Stable: Yes Pain Level: o Appearance: NAD Lungs: Clear Skin: Warm and Dry Neuro: Alert and Oriented X3 CV: RRR Critical Care Note - Critical Care Note Total Time (mins): 0 Course - Course Orders, Labs, Meds: Orders Category Date Time Status Hydromorphone HCl [Dilaudid] MEDS 02/02/18 21:42 Discontinued 2 mg IM ONCE STA Hydromorphone HCl/Pf [Dilaudid 2 mg/ml Syringe] MEDS 02/02/18 21:50 Discontinued 2 mg .ROUTE .STK-MED ONE Meperidine HCl/Pf [Demerol 50 mg/ml Vial] MEDS 02/02/18 21:02 Discontinued 50 mg IM ONCE STA Promethazine HCl [Phenergan 25 mg/ml Vial] MEDS 02/02/18 20:53 Discontinued 25 mg IM ONCE STA CT PELVIS W/O CONTRAST Stat RADS 02/02/18 20:54 Completed Medications Discontinued Medications Generic Name Dose Route Start Last Admin Trade Name Freq PRN Reason Stop Dose Admin Hydromorphone HCl 2 mg 02/02/18 21:42 02/02/18 21:56 Dilaudid IM 02/02/18 21:43 Not Given ONCE STA Meperidine HCl 50 mg 02/02/18 21:02 02/02/18 21:07 Demerol 50 Mg/Ml Vial IM 02/02/18 21:03 50 mg ONCE STA Administration Promethazine HCl 25 mg 02/02/18 20:53 02/02/18 21:05 Phenergan 25 Mg/Ml Vial IM 02/02/18 20:54 25 mg ONCE STA Administration Vital Signs: Temp Pulse Resp BP Pulse Ox 02/02/18 20:40 98.4 F 69 16 153/89 H 94 L Departure - Departure Time of Disposition: 22:23 Disposition: HOME SELF-CARE Discharge Problem: Hip pain Instructions: Hip Pain (ED) Condition: Good Pt referred to PMD for follow-up: Yes IPMP verified?: No Additional Instructions: f/u wtih pcp Allergies/Adverse Reactions: Allergies codeine Adverse Reaction (Verified 01/02/18 12:53) fentanyl Adverse Reaction (Verified 01/02/18 12:53) Home Medications: Ambulatory Orders Isosorbide Mononitrate [Imdur] 30 mg PO DAILY 12/30/16 Metoprolol Tartrate [Lopressor] 50 mg PO BID 12/30/16 Omeprazole Magnesium [Prilosec Otc] 20 mg PO DAILY 12/30/16 Methadone HCl [Methadone] 40 mg pe PO TID 11/27/17 Aspirin [Aspir-Low] 81 mg PO DAILY 01/02/18 Atorvastatin Calcium 10 mg PO BEDTIME 01/02/18 Furosemide [Lasix] 40 mg PO PRN PRN 01/02/18 Gabapentin 300 mg PO TID 01/02/18 Insulin Glargine,Hum.rec.anlog [Lantus] 50 units SUBCUT BEDTIME 01/02/18 Oxycodone-Acetaminophen 10-325 [Percocet 10-325] 1 tab PO Q6H PRN 02/02/18 Disposition Discussed With: Patient, Family
[2018-02-02] MEDS ORDERED: DILAUDID IM STA (21:42)
[2018-02-02] MEDS ORDERED: DILAUDID 2 MG/ML SYRINGE ONE (21:50)
--- NOTE | 2018-02-02 22:17 | CT ---
EXAM: CT pelvis HISTORY: Left hip pain, history of lung cancer TECHNIQUE: CT pelvis without contrast. Multiplanar images provided. FINDINGS: Comparison may be made to 08/24/2017 CT. Both hip joints demonstrate mild to moderate loss of articular cartilage width consistent with osteoa rthritis. No fracture or joint dislocation is identified. Sacroiliac joints are grossly within norm al limits. Degenerative changes of the lower spine are moderate. Intrapelvic structures including the urinary bladder and visualized bowel are within normal limits. There is a fatty umbilical hernia with a transverse neck of 1.6 cm which is stable. IMPRESSION: Bilateral hip osteoarthritis. No destructive bony lesions or fractures identified. If concern is persistent, consider correlation with MRI follow-up.
== END 2018-02-02 22:30 | disposition home or self-care (01) ==
LOC: ED 20:38
DX: M25.552 Pain in left hip (principal); F17.210 Nicotine dependence, cigarettes, uncomplicated
CPT/HCPCS: 96372; 99282

== ENCOUNTER 2018-02-04 20:23 | Emergency (ER) ==
[2018-02-04 20:23] VITALS: BMI 34.8
[2018-02-04 20:27] VITALS: BP 157/77; TEMP 98.8
[2018-02-04] MEDS ORDERED: PHENERGAN 25 MG/ML VIAL IM STA (20:27)
[2018-02-04] MEDS ORDERED: DILAUDID 2 MG/ML SYRINGE IM STA (20:27)
[2018-02-04] MEDS ORDERED: DILAUDID IM STA (22:14)
--- NOTE | 2018-02-04 22:25 | CT ---
EXAM: CT of the pelvis without contrast. HISTORY: Fall with left hip pain. PROCEDURE: Contiguous axial CT images of the pelvis without contrast with coronal and sagittal refor mats. FINDINGS: Comparison made with CT of 02/02/[address] of 06/26/2017. The bones are intact with no e vidence of fracture. The joint spaces are maintained. The bladder is adequately filled with no abno rmality identified. The visualized loops of bowel are normal in appearance. No free fluid or free a ir in the pelvis. There is a small umbilical hernia containing only fat. There degenerative changes in the spine. Impression: No evidence of fracture. Degenerative changes as described. Umbilical hernia as described.
--- NOTE | 2018-02-04 22:30 | ED.PDOC ---
General ED Provider: Dr. SUSAN TOM-ER Chief Complaint: Fall Stated Complaint: MY LEFT HIP HURTS--IT HAS CANCER IN IT Time Seen by Physician: 20:25 Mode of Arrival: Wheelchair Information Source: Patient Exam Limitations: No limitations Primary Care Provider: ALEX EDWARD Nursing and Triage Documentation Reviewed and Agree: Yes Reviewed sepsis parameters & appropriate labs ordered?: Yes System Inflammatory Response Syndrome: Not Applicable Sepsis Protocol: For patient's 13 years and over: Temp is 96.8 and below OR 101 and greater Pulse >90 BPM Resp >20/minute Acutely Altered Mental Status Are patient's symptoms suggestive of a new infection, such as: -Pneumonia -Skin, Soft Tissue -Endocarditis -UTI -Bone, Joint Infection -Implantable Device -Acute Abdominal Infection -Wound Infection -Meningitis -Blood Stream Catheter Infection -Unknown Musculoskeletal Complaint Exam - Hip/Pelvis Complaint/Exam Location of Pain: Reports: Left, Hip Mechanism of Injury: Reports: Trauma Onset/Duration: several weeks Symptoms Are: Still present Initial Severity: Mild Current Severity: Moderate Location: Reports: Discrete (left hip) Character: Reports: Dull, Aching Aggravating: Reports: Movement, Weight bearing Alleviating: Reports: None Associated Signs and Symptoms: Denies: Swelling, Redness, Bruising, Fever, Weakness, Dizziness, Syncope, Abdominal pain, Knee pain Able to Bear Weight: Yes Septic Arthritis Risk Factors: Reports: None Pelvis Palpation: Stable Range of Motion Limited In: Present: Flexion, Extension, Abduction, Adduction NV Bundle Intact Distal to Injury: Yes Differential Diagnoses: Arthritis, Contusion, Fracture Review of Systems - Review Of Systems Constitutional: Reports: No symptoms Eyes: Reports: No symptoms Ears, Nose, Mouth, Throat: Reports: No symptoms Respiratory: Reports: No symptoms Cardiac: Reports: No symptoms GI: Reports: No symptoms : Reports: No symptoms Musculoskeletal: Reports: Joint pain, Muscle pain Skin: Reports: No symptoms Neurological: Reports: No symptoms Endocrine: Reports: No symptoms Hematologic/Lymphatic: Reports: No symptoms All Other Systems: Reviewed and Negative Past Medical History - Past Medical History Previously Healthy: No Endocrine: Reports: DM 2 Cardiovascular: Reports: NE, Hypertension Respiratory: Reports: COPD Hematological: Reports: None Gastrointestinal: Reports: None Genitourinary: Reports: None Neuro/Psych: Reports: Anxiety Musculoskeletal: Reports: Arthritis, Back Pain Cancer: 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) - Surgical History General Surgical History: Reports: CABG - Family History Family History: Reports: Diabetes - Social History Smoking Status: Current every day smoker, Heavy tobacco smoker Hx Substance Use: No Alcohol Screening: Occasionally - Immunizations Tetanus Shot up to Date: Yes Physical Exam - Physical Exam Appearance: Well-appearing, No pain distress, Well-nourished Eyes: OBDULIO, EOMI, Conjunctiva clear ENT: Ears normal, Nose normal, Oropharynx normal Neck: Supple Respiratory: Airway patent Cardiovascular: RRR GI/: Soft, Nontender, No masses, Bowel sounds normal, No Organomegaly Musculoskeletal: Limited ROM Skin: Warm Neurological: Sensation intact, Motor intact, Reflexes intact, Cranial nerves intact, Alert, Oriented Psychiatric: Affect appropriate, Mood appropriate Interpretation - Radiology Interpretation Radiology Interpretation By: Radiologist Radiology Results: Negative Exam Interpreted: CT Scan Re-Evaluation - Re-Evaluation Time of Re-Evaluation: 22:31 Status: Improved Vital Signs Stable: Yes Pain Level: 2 Appearance: NAD Lungs: Clear Skin: Warm and Dry Neuro: Alert and Oriented X3 CV: RRR Critical Care Note - Critical Care Note Total Time (mins): 0 Course - Course Orders, Labs, Meds: Orders Category Date Time Status Hydromorphone HCl [Dilaudid] MEDS 02/04/18 22:14 Discontinued 1 mg IM ONCE STA Hydromorphone HCl/Pf [Dilaudid 2 mg/ml Syringe] MEDS 02/04/18 20:27 Discontinued 2 mg IM ONCE STA Hydromorphone HCl/Pf [Dilaudid 2 mg/ml Syringe] MEDS 02/04/18 23:30 Ordered 2 mg IM Q3HR PRN Promethazine HCl [Phenergan 25 mg/ml Vial] MEDS 02/04/18 20:27 Discontinued 25 mg IM ONCE STA CT PELVIS W/O CONTRAST Stat RADS 02/04/18 20:27 Completed Medications Generic Name Dose Route Start Last Admin Trade Name Freq PRN Reason Stop Dose Admin Hydromorphone HCl 2 mg 02/04/18 23:30 Dilaudid 2 Mg/Ml Syringe IM Q3HR PRN MODERATE PAIN Discontinued Medications Generic Name Dose Route Start Last Admin Trade Name Freq PRN Reason Stop Dose Admin Hydromorphone HCl 2 mg 02/04/18 20:27 02/04/18 21:03 Dilaudid 2 Mg/Ml Syringe IM 02/04/18 20:28 2 mg ONCE STA Administration Hydromorphone HCl 1 mg 02/04/18 22:14 02/04/18 22:44 Dilaudid IM 02/04/18 22:15 1 mg ONCE STA Administration Promethazine HCl 25 mg 02/04/18 20:27 02/04/18 21:05 Phenergan 25 Mg/Ml Vial IM 02/04/18 20:28 25 mg ONCE STA Administration Vital Signs: Temp Pulse Resp BP Pulse Ox 02/04/18 20:23 98.8 F 95 H 16 157/77 H 93 L Departure - Departure Time of Disposition: 00:06 Disposition: HOME SELF-CARE Discharge Problem: Hip pain Instructions: Hip Sprain (ED), Arthralgia (ED) Condition: Fair Pt referred to PMD for follow-up: Yes IPMP verified?: No Additional Instructions: f/u with pcp Allergies/Adverse Reactions: Allergies codeine Adverse Reaction (Verified 01/02/18 12:53) fentanyl Adverse Reaction (Verified 01/02/18 12:53) Home Medications: Ambulatory Orders Isosorbide Mononitrate [Imdur] 30 mg PO DAILY 12/30/16 Metoprolol Tartrate [Lopressor] 50 mg PO BID 12/30/16 Omeprazole Magnesium [Prilosec Otc] 20 mg PO DAILY 12/30/16 Methadone HCl [Methadone] 40 mg pe PO TID 11/27/17 Aspirin [Aspir-Low] 81 mg PO DAILY 01/02/18 Atorvastatin Calcium 10 mg PO BEDTIME 01/02/18 Furosemide [Lasix] 40 mg PO PRN PRN 01/02/18 Gabapentin 300 mg PO TID 01/02/18 Insulin Glargine,Hum.rec.anlog [Lantus] 50 units SUBCUT BEDTIME 01/02/18 Oxycodone-Acetaminophen 10-325 [Percocet 10-325] 1 tab PO Q6H PRN 02/02/18 Disposition Discussed With: Patient
[2018-02-04] MEDS ORDERED: DILAUDID 2 MG/ML SYRINGE IM PRN (23:30)
== END 2018-02-05 00:09 | disposition home or self-care (01) ==
LOC: ED 20:23
DX: M25.552 Pain in left hip (principal); W19.XXXA Unspecified fall, initial encounter; F17.210 Nicotine dependence, cigarettes, uncomplicated
CPT/HCPCS: 96372; 99283

== ENCOUNTER 2018-02-22 17:26 | Emergency (ER) ==
[2018-02-22 17:27] VITALS: BMI 34.8
[2018-02-22 17:30] VITALS: BP 170/82; TEMP 97.3
[2018-02-22] MEDS ORDERED: DILAUDID IM STA (17:44)
--- NOTE | 2018-02-22 17:47 | ED.PDOC ---
General ED Provider: Dr. TOBY MARIO Chief Complaint: Hip Pain/Injury Stated Complaint: history of bone cancer hip pain Time Seen by Physician: 17:30 (chronic pain issue) Mode of Arrival: Walk-In Information Source: Patient, Family Exam Limitations: No limitations Referred to ED by: Other (no injury) Nursing and Triage Documentation Reviewed and Agree: Yes Reviewed sepsis parameters & appropriate labs ordered?: Yes System Inflammatory Response Syndrome: Not Applicable Sepsis Protocol: For patient's 13 years and over: Temp is 96.8 and below OR 101 and greater Pulse >90 BPM Resp >20/minute Acutely Altered Mental Status Are patient's symptoms suggestive of a new infection, such as: -Pneumonia -Skin, Soft Tissue -Endocarditis -UTI -Bone, Joint Infection -Implantable Device -Acute Abdominal Infection -Wound Infection -Meningitis -Blood Stream Catheter Infection -Unknown Musculoskeletal Complaint Exam - Hip/Pelvis Complaint/Exam Location of Pain: Reports: Right, Left, Hip Mechanism of Injury: Reports: No known trauma Onset/Duration: chronic issue history of bone cancer worse today Symptoms Are: Still present Initial Severity: Moderate Current Severity: Moderate Location: Reports: Discrete (hips) Character: Reports: Dull Aggravating: Reports: Movement Alleviating: Reports: Rest Associated Signs and Symptoms: Denies: Swelling, Redness, Bruising, Fever, Weakness, Dizziness, Syncope, Abdominal pain, Knee pain Related History: Reports: Similar episode Able to Bear Weight: Yes Related Surgical History: Reports: None Pelvis Palpation: Stable Hip/Pelvis Findings: Absent: Extremity shortened, Swelling, Ecchymosis, Erythema , Warmth Tenderness: Present: Right, Left, Greater Trochanter Range of Motion Limited In: Absent: Flexion, Extension, Abduction, Adduction, Internal rotation, External rotation Differential Diagnoses: Arthritis, Sprain, Strain Review of Systems - Review Of Systems Constitutional: Reports: No symptoms Eyes: Reports: No symptoms Ears, Nose, Mouth, Throat: Reports: No symptoms Respiratory: Reports: No symptoms Cardiac: Reports: No symptoms GI: Reports: No symptoms : Reports: No symptoms Musculoskeletal: Reports: Joint pain (hips) Skin: Reports: No symptoms Neurological: Reports: No symptoms Endocrine: Reports: No symptoms Hematologic/Lymphatic: Reports: No symptoms All Other Systems: Reviewed and Negative Past Medical History - Past Medical History Previously Healthy: No Endocrine: Reports: DM 2 Cardiovascular: Reports: MS, Hypertension Respiratory: Reports: COPD Hematological: Reports: None Gastrointestinal: Reports: None Genitourinary: Reports: None Neuro/Psych: Reports: Anxiety Musculoskeletal: Reports: Arthritis, Back Pain Cancer: 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) - Surgical History General Surgical History: Reports: CABG - Family History Family History: Reports: Diabetes - Social History Smoking Status: Current every day smoker, Heavy tobacco smoker Hx Substance Use: No Alcohol Screening: None Physical Exam - Physical Exam Appearance: Well-appearing, No pain distress, Well-nourished Eyes: OBDULIO, EOMI, Conjunctiva clear ENT: Ears normal, Nose normal, Oropharynx normal Respiratory: Airway patent, Breath sounds clear, Breath sounds equal, Respirations nonlabored Cardiovascular: RRR, Pulses normal, No rub, No murmur GI/: Soft, Nontender, No masses, Bowel sounds normal, No Organomegaly Musculoskeletal: Normal strength, ROM intact, No edema, No calf tenderness Skin: Warm, Dry, Normal color Neurological: Sensation intact, Motor intact, Reflexes intact, Cranial nerves intact, Alert, Oriented Psychiatric: Affect appropriate, Mood appropriate Critical Care Note - Critical Care Note Total Time (mins): 0 Course - Course Orders, Labs, Meds: Orders Category Date Time Status Hydromorphone HCl [Dilaudid] MEDS 02/22/18 17:44 Stat 1 mg IM ONCE STA Medications Generic Name Dose Route Start Last Admin Trade Name Freq PRN Reason Stop Dose Admin Hydromorphone HCl 1 mg 02/22/18 17:44 Dilaudid IM 02/22/18 17:45 ONCE STA Vital Signs: Temp Pulse Resp BP Pulse Ox 02/22/18 17:27 97.3 F L 69 20 170/82 H 96 Departure - Departure Time of Disposition: 19:00 Disposition: HOME SELF-CARE Discharge Problem: Hip pain Instructions: Arthralgia (ED), Hip Pain (ED) Condition: Good Pt referred to PMD for follow-up: Yes IPMP verified?: No Additional Instructions: Please call your Family Physician as soon as possible to schedule a follow-up appointment. Prescriptions: Hydrocodone/Acetaminophen [Browder 10-325 Tablet] 1 each PO Q8HR #12 tablet Allergies/Adverse Reactions: Allergies codeine Adverse Reaction (Verified 02/22/18 17:33) fentanyl Adverse Reaction (Verified 02/22/18 17:33) Home Medications: Ambulatory Orders Isosorbide Mononitrate [Imdur] 30 mg PO DAILY 12/30/16 Metoprolol Tartrate [Lopressor] 50 mg PO BID 12/30/16 Omeprazole Magnesium [Prilosec Otc] 20 mg PO DAILY 12/30/16 Methadone HCl [Methadone] 40 mg pe PO TID 11/27/17 Aspirin [Aspir-Low] 81 mg PO DAILY 01/02/18 Atorvastatin Calcium 10 mg PO BEDTIME 01/02/18 Furosemide [Lasix] 40 mg PO PRN PRN 01/02/18 Gabapentin 300 mg PO TID 01/02/18 Insulin Glargine,Hum.rec.anlog [Lantus] 50 units SUBCUT BEDTIME 01/02/18 Oxycodone-Acetaminophen 10-325 [Percocet 10-325] 1 tab PO Q6H PRN 02/02/18 Hydrocodone/Acetaminophen [Browder 10-325 Tablet] 1 each PO Q8HR #12 tablet Disposition Discussed With: Patient, Family
== END 2018-02-22 18:37 | disposition home or self-care (01) ==
LOC: ED 17:26
DX: M25.552 Pain in left hip (principal); M25.551 Pain in right hip; G89.29 Other chronic pain; Z85.830 Personal history of malignant neoplasm of bone
CPT/HCPCS: 96372; 99282

== ENCOUNTER 2018-02-25 19:31 | Emergency (ER) ==
[2018-02-25 19:38] VITALS: TEMP 98.5; BMI 36.0
--- NOTE | 2018-02-25 19:40 | ED.PDOC ---
General ED Provider: Dr. SUSAN TOM-ER Chief Complaint: Chest Pain Stated Complaint: my chest hurts--i have heart trouble--i see dr gaytan Time Seen by Physician: 19:37 Mode of Arrival: Walk-In Information Source: Patient, Family Exam Limitations: No limitations Nursing and Triage Documentation Reviewed and Agree: Yes Reviewed sepsis parameters & appropriate labs ordered?: Yes System Inflammatory Response Syndrome: Not Applicable Sepsis Protocol: For patient's 13 years and over: Temp is 96.8 and below OR 101 and greater Pulse >90 BPM Resp >20/minute Acutely Altered Mental Status Are patient's symptoms suggestive of a new infection, such as: -Pneumonia -Skin, Soft Tissue -Endocarditis -UTI -Bone, Joint Infection -Implantable Device -Acute Abdominal Infection -Wound Infection -Meningitis -Blood Stream Catheter Infection -Unknown Cardiovascular Complaint Exam - Chest Pain Complaint/Exam Onset: Gradual Symptoms Are: Still present Timing: Constant Initial Severity: Mild Current Severity: Mild Location: Reports: Midsternal Character: Reports: Dull, Aching, Heaviness, Pressure Alleviating: Reports: None Associated Signs and Symptoms: Denies: Diaphoresis, Nausea, Vomiting, Fever, Palpitations, Cough, Hemoptysis, Back pain, Abdominal pain, Dizziness, Short of air, Calf pain, Calf swelling Related Surgical History: Reports: Valve Replacement AMI/ACS Risk Factors: Reports: None, Myocardial Infarction, Nitroglycerine use, Hypertension TAD Risk Factors: Reports: Hypertension Pulmonary Embolism Risk Factors: Reports: None Prior Care for this Complaint: Yes Recent Stress Test: No Recent Echo/LV Function: No JVD Present: No Subcutaneous Emphysema Present: No Diminshed Breath Sounds: No Reproducible Chest Wall Pain: No Bilateral Pulses Present: Yes Unequal Pulses Noted: No If Risk Factors for AMI/ACS Consider: EKG Quality Indicators For Acute NV or Cardiac Chest Pain: EKG in 10min. Quality Indicator For Non-Traumatic Chest Pain/Syncope: EKG Performed Review of Systems - Review Of Systems Constitutional: Reports: No symptoms Eyes: Reports: Decreased acuity Ears, Nose, Mouth, Throat: Reports: No symptoms Respiratory: Reports: No symptoms Cardiac: Reports: Chest pain GI: Reports: No symptoms : Reports: No symptoms Musculoskeletal: Reports: Back pain Skin: Reports: No symptoms Neurological: Reports: No symptoms Endocrine: Reports: No symptoms Hematologic/Lymphatic: Reports: No symptoms All Other Systems: Reviewed and Negative Past Medical History - Past Medical History Previously Healthy: No Endocrine: Reports: DM 2 Cardiovascular: Reports: [place], Hypertension Respiratory: Reports: COPD Hematological: Reports: None Gastrointestinal: Reports: None Genitourinary: Reports: None Neuro/Psych: Reports: Anxiety Musculoskeletal: Reports: Arthritis, Back Pain Cancer: 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) - Surgical History General Surgical History: Reports: CABG - Family History Family History: Reports: Diabetes - Social History Smoking Status: Current every day smoker, Heavy tobacco smoker Hx Substance Use: No Alcohol Screening: None Physical Exam - Physical Exam Appearance: Well-appearing, No pain distress, Well-nourished Eyes: OBDULIO, EOMI, Conjunctiva clear, Conjunctiva pale ENT: Ears normal Neck: Supple Respiratory: Airway patent, Breath sounds clear, Breath sounds equal, Respirations nonlabored Cardiovascular: RRR GI/: Soft, Nontender, No masses, Bowel sounds normal, No Organomegaly Musculoskeletal: Normal strength, ROM intact, No edema, No calf tenderness Skin: Warm Neurological: Sensation intact, Motor intact, Reflexes intact, Cranial nerves intact, Alert, Oriented Psychiatric: Affect appropriate, Mood appropriate, Anxious Interpretation - Radiology Interpretation Radiology Interpretation By: ED Physician Radiology Results: Negative Exam Interpreted: Portable CXR - EKG Interpretation Time of EKG #1: 19:39 Rate: Normal Rhythm: Sinus Ectopy: None [place]: NL ST Segment: Normal Interpretation: nsr Re-Evaluation - Re-Evaluation Time of Re-Evaluation: 19:47 Status: Improved Vital Signs Stable: Yes Pain Level: 2 Appearance: NAD Lungs: Clear Skin: Warm and Dry Neuro: Alert and Oriented X3 CV: RRR Physician Notification - Case Discussed Physician Notified: dr london accepted for transfer Time of Notification: 19:47 Critical Care Note - Critical Care Note Total Time (mins): 0 Course - Course Orders, Labs, Meds: Orders Category Date Time Status EKG-(ED ONLY) Stat CARDIO 02/25/18 19:32 Completed Shank Sander [ED PRODUCTION STAGE MANAGER APPLIED] .ONCE EMERGENCY 02/25/18 19:32 Active IV [ED IV/MEDIPORT/POWERPORT] .ONCE EMERGENCY 02/25/18 19:33 Active OXYGEN [ED APPLY O2] .ONCE EMERGENCY 02/25/18 19:40 Active AMYLASE Stat LAB 02/25/18 19:32 Ordered CBC W/ AUTO DIFF Stat LAB 02/25/18 19:31 Ordered COMPREHENSIVE METABOLIC PANEL Stat LAB 02/25/18 19:31 Ordered CREATINE KINASE Stat LAB 02/25/18 19:32 Ordered LIPASE Stat LAB 02/25/18 19:32 Ordered TROPONIN I Stat LAB 02/25/18 19:32 Ordered 0.9 % Sodium Chloride [Saline Flush] MEDS 02/25/18 19:33 Ordered 1 syr IVF PRN PRN Hydromorphone HCl [Dilaudid] MEDS 02/25/18 19:41 Discontinued 1 mg IVP ONCE STA CXR [CHEST, 1V AP ONLY] Stat RADS 02/25/18 19:33 Ordered Medications Generic Name Dose Route Start Last Admin Trade Name Freq PRN Reason Stop Dose Admin Sodium Chloride 1 syr 02/25/18 19:33 Saline Flush IVF PRN PRN To flush IV Discontinued Medications Generic Name Dose Route Start Last Admin Trade Name Freq PRN Reason Stop Dose Admin Hydromorphone HCl 1 mg 02/25/18 19:41 Dilaudid IVP 02/25/18 19:42 ONCE STA Vital Signs: Temp Pulse Resp BP Pulse Ox 02/25/18 19:32 98.5 F 72 16 155/85 H 98 EMELY Risk Score EMELY Risk Score: Risk Score Odds of by 30D 0 0.1 (0.1-0.2) 1 0.3 (0.2-0.3) 2 0.4 (0.3-0.5) 3 0.7 (0.6-0.9) 4 1.2 (1.0-1.5) 5 2.2 (1.9-2.6) 6 3.0 (2.5-3.6) 7 4.8 (3.8-6.1) Departure - Departure Time of Disposition: 19:47 Disposition: TSF SHORT-TRM HOSP Discharge Problem: Chest pain Instructions: Chest Pain (ED) Condition: Fair Pt referred to PMD for follow-up: Yes IPMP verified?: No Allergies/Adverse Reactions: Allergies codeine Adverse Reaction (Verified 02/22/18 17:33) fentanyl Adverse Reaction (Verified 02/22/18 17:33) Home Medications: Ambulatory Orders Isosorbide Mononitrate [Imdur] 30 mg PO DAILY 12/30/16 Metoprolol Tartrate [Lopressor] 50 mg PO BID 12/30/16 Omeprazole Magnesium [Prilosec Otc] 20 mg PO DAILY 12/30/16 Methadone HCl [Methadone] 40 mg pe PO TID 11/27/17 Aspirin [Aspir-Low] 81 mg PO DAILY 01/02/18 Atorvastatin Calcium 10 mg PO BEDTIME 01/02/18 Furosemide [Lasix] 40 mg PO PRN PRN 01/02/18 Gabapentin 300 mg PO TID 01/02/18 Insulin Glargine,Hum.rec.anlog [Lantus] 50 units SUBCUT BEDTIME 01/02/18 Oxycodone-Acetaminophen 10-325 [Percocet 10-325] 1 tab PO Q6H PRN 02/02/18 Hydrocodone/Acetaminophen [[place] 10-325 Tablet] 1 each PO Q8HR #12 tablet Transfer Form Completed: Yes Disposition Discussed With: Patient, Family
[2018-02-25] MEDS ORDERED: DILAUDID IVP STA (19:41)
[2018-02-25 19:57] VITALS: BP 158/83
--- NOTE | 2018-02-26 07:26 | DI ---
EXAM: Chest one view, frontal view only. HISTORY: Chest pain. COMPARISON: 08/24/2017. FINDINGS: Mediasternotomy wires are present. Heart is mildly enlarged. There is no vascular conges tion. Lungs are clear save for calcified granulomatous changes. No pleural effusion or pneumothorax identified. Osseous structures are intact. Since the prior study, there has been no significant int erval change. IMPRESSION: No acute process
== END 2018-02-25 20:15 | disposition short-term general hospital (02) ==
LOC: ED 19:31
DX: R07.9 Chest pain, unspecified (principal); I10 Essential (primary) hypertension; E11.9 Type 2 diabetes mellitus without complications; C41.9 Malignant neoplasm of bone and articular cartilage, unspecified; I25.2 Old myocardial infarction; J44.9 Chronic obstructive pulmonary disease, unspecified; F17.210 Nicotine dependence, cigarettes, uncomplicated; Z95.1 Presence of aortocoronary bypass graft; Z79.899 Other long term (current) drug therapy
CPT/HCPCS: 36415; 80053; 82150; 82550; 83690; 84484; 85025; 93005; 93010; 96374; 99285

== ENCOUNTER 2018-02-25 20:14 | Outpatient (CLI) ==
[2018-02-25 19:38] VITALS: BMI 36.0
== END 2018-02-25 20:37 | disposition short-term general hospital (02) ==
LOC: AMBL 20:14
PROVIDERS: ATTEND Family Medicine
DX: R07.9 Chest pain, unspecified (principal)

== ENCOUNTER 2018-03-23 14:43 | Outpatient (CLI) ==
--- NOTE | 2018-03-23 15:56 | US ---
EXAM: Bilateral lower extremity venous Doppler History: Bilateral lower extremity pain and edema. Technique: Multiple sonographic images through the bilateral lower extremities were obtained. Color duplex Doppler was used to interrogate vascular flow. Findings: The bilateral common femoral, greater saphenous, profunda, superficial femoral, popliteal, peroneal, posterior tibial and anterior tibial veins demonstrate spontaneous flow with normal compre ssion and normal augmentation. Impression: No sonographic evidence for deep venous thrombosis.
== END 2018-03-23 14:44 | disposition home or self-care (01) ==
LOC: RAD 14:43
PROVIDERS: ATTEND Physician Assistant
DX: R60.0 Localized edema (principal)

== ENCOUNTER 2018-03-24 18:05 | Emergency (ER) ==
[2018-03-24 18:10] VITALS: BP 120/63; TEMP 97.4; BMI 34.8
--- NOTE | 2018-03-24 18:19 | ED.PDOC ---
General ED Provider: Dr. TOBY MARIO Chief Complaint: Cellulitis Stated Complaint: rash on left knee Time Seen by Physician: 18:10 (seen with kasi berry present at all times ) Mode of Arrival: Wheelchair Information Source: Patient, Family Exam Limitations: No limitations, Other (vascular study at [facility] was negative , denied injury) Primary Care Provider: ALEX EDWARD Referred to ED by: Other (left knee photos submitted ) Nursing and Triage Documentation Reviewed and Agree: Yes Does patient meet sepsis criteria?: No If yes, has appropriate treatment been initiated?: No System Inflammatory Response Syndrome: Not Applicable Sepsis Protocol: For patient's 13 years and over: Temp is 96.8 and below OR 101 and greater Pulse >90 BPM Resp >20/minute Acutely Altered Mental Status Are patient's symptoms suggestive of a new infection, such as: -Pneumonia -Skin, Soft Tissue -Endocarditis -UTI -Bone, Joint Infection -Implantable Device -Acute Abdominal Infection -Wound Infection -Meningitis -Blood Stream Catheter Infection -Unknown Skin Complaint Exam - Skin Rash/Itching Complaint/Exam Onset/Duration: 2 days Symptoms Are: Still present (on left knee see photos) Initial Severity: Mild Current Severity: Mild Potential Exposures: Reports: Unknown Prior Treatment: on amoxicillin Aggravating: Reports: None Alleviating: Reports: None Associated Signs and Symptoms: Denies: Difficulty breathing, Fever, Chills Skin Findings: Present: Papules Differential Diagnoses: Allergic Reaction Review of Systems - Review Of Systems Constitutional: Reports: No symptoms Eyes: Reports: No symptoms Ears, Nose, Mouth, Throat: Reports: No symptoms Respiratory: Reports: No symptoms Cardiac: Reports: No symptoms GI: Reports: No symptoms : Reports: No symptoms Musculoskeletal: Reports: No symptoms Skin: Reports: Rash Neurological: Reports: No symptoms Endocrine: Reports: No symptoms Hematologic/Lymphatic: Reports: No symptoms All Other Systems: Reviewed and Negative Past Medical History - Past Medical History Previously Healthy: No Endocrine: Reports: DM 2 Cardiovascular: Reports: [place], Hypertension Respiratory: Reports: COPD Hematological: Reports: None Gastrointestinal: Reports: None Genitourinary: Reports: None Neuro/Psych: Reports: Anxiety Musculoskeletal: Reports: Arthritis, Back Pain Cancer: 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) - Surgical History General Surgical History: Reports: CABG - Family History Family History: Reports: Diabetes - Social History Smoking Status: Current every day smoker, Heavy tobacco smoker Hx Substance Use: No Alcohol Screening: None Physical Exam - Physical Exam Appearance: Well-appearing, No pain distress, Well-nourished Eyes: OBDULIO, EOMI, Conjunctiva clear ENT: Ears normal, Nose normal, Oropharynx normal Respiratory: Airway patent, Breath sounds clear, Breath sounds equal, Respirations nonlabored Cardiovascular: RRR, Pulses normal, No rub, No murmur GI/: Soft, Nontender, No masses, Bowel sounds normal, No Organomegaly Musculoskeletal: Normal strength, ROM intact, No edema, No calf tenderness Skin: Warm, Dry (rash left knee see photos) Neurological: Sensation intact, Motor intact, Reflexes intact, Cranial nerves intact, Alert, Oriented Psychiatric: Affect appropriate, Mood appropriate Critical Care Note - Critical Care Note Total Time (mins): 0 Course - Course Hematology/Chemistry: 03/24/18 18:50 03/24/18 18:50 Orders, Labs, Meds: Lab Review 03/24/18 03/24/18 03/24/18 18:50 18:50 18:50 WBC 6.04 RBC 4.93 Hgb 13.4 L Hct 41.8 L MCV 84.8 MCH 27.2 MCHC 32.1 RDW Coeff of Honorio 14.3 Plt Count 214 Immature Gran % (Auto) 0.7 Neut % (Auto) 69.9 Lymph % (Auto) 20.5 [place] % (Auto) 5.3 Eos % (Auto) 3.1 Baso % (Auto) 0.5 Immature Gran # (Auto) 0.0 Neut # (Auto) 4.2 Lymph # (Auto) 1.2 [place] # (Auto) 0.3 L Eos # (Auto) 0.2 Baso # (Auto) 0.0 Sodium 132 L Potassium 4.1 Chloride 92 L Carbon Dioxide 29 Anion Gap 15.1 BUN 10 Creatinine 0.99 Estimated GFR (MDRD) 78.00 BUN/Creatinine Ratio 10.10 Glucose 449 H Lactic Acid 19.7 Calcium 8.7 Total Bilirubin 0.3 AST 6 L ALT 8 L Alkaline Phosphatase 111 Total Protein 7.0 Albumin 3.0 L Globulin 4.0 Albumin/Globulin Ratio 0.75 Procalcitonin 03/24/18 18:50 WBC RBC Hgb Hct MCV MCH MCHC RDW Coeff of Honorio Plt Count Immature Gran % (Auto) Neut % (Auto) Lymph % (Auto) [place] % (Auto) Eos % (Auto) Baso % (Auto) Immature Gran # (Auto) Neut # (Auto) Lymph # (Auto) [place] # (Auto) Eos # (Auto) Baso # (Auto) Sodium Potassium Chloride Carbon Dioxide Anion Gap BUN Creatinine Estimated GFR (MDRD) BUN/Creatinine Ratio Glucose Lactic Acid Calcium Total Bilirubin AST ALT Alkaline Phosphatase Total Protein Albumin Globulin Albumin/Globulin Ratio Procalcitonin < 0.05 Orders Category Date Time Status BLOOD CULTURE Stat LAB 03/24/18 18:50 Results CBC W/ AUTO DIFF Stat LAB 03/24/18 18:50 Completed COMPREHENSIVE METABOLIC PANEL Stat LAB 03/24/18 18:50 Completed LACTIC ACID Stat LAB 03/24/18 18:50 Completed PROCALCITONIN Stat LAB 03/24/18 18:50 Completed Ceftriaxone Sodium [Rocephin] MEDS 03/24/18 18:20 Discontinued 1 gm IM ONCE STA Hydromorphone HCl/Pf [Dilaudid 2 mg/ml Syringe] MEDS 03/24/18 18:55 Discontinued 2 mg IM ONCE STA Lidocaine HCl/Pf [Lidocaine HCl 1% Sdv] MEDS 03/24/18 18:20 Discontinued 2.1 ml IM ONCE STA Promethazine HCl [Phenergan 25 mg/ml Vial] MEDS 03/24/18 18:56 Discontinued 25 mg IM ONCE STA Medications Discontinued Medications Generic Name Dose Route Start Last Admin Trade Name Freq PRN Reason Stop Dose Admin Ceftriaxone Sodium 1 gm 03/24/18 18:20 03/24/18 18:56 Rocephin IM 03/24/18 18:21 1 gm ONCE STA Administration Hydromorphone HCl 2 mg 03/24/18 18:55 03/24/18 19:05 Dilaudid 2 Mg/Ml Syringe IM 03/24/18 18:56 2 mg ONCE STA Administration Lidocaine HCl 2.1 ml 03/24/18 18:20 03/24/18 18:56 Lidocaine Hcl 1% Sdv IM 03/24/18 18:21 2.1 ml ONCE STA Administration Promethazine HCl 25 mg 03/24/18 18:56 03/24/18 19:04 Phenergan 25 Mg/Ml Vial IM 03/24/18 18:57 25 mg ONCE STA Administration Vital Signs: Temp Pulse Resp BP Pulse Ox 03/24/18 18:05 97.4 F L 73 20 120/63 93 L Departure - Departure Time of Disposition: 19:00 Disposition: HOME SELF-CARE Discharge Problem: Cellulitis Instructions: Cellulitis (ED), Cellulitis (DC) Condition: Good Pt referred to PMD for follow-up: Yes IPMP verified?: No Additional Instructions: Please call your Family Physician as soon as possible to schedule a follow-up appointment. Allergies/Adverse Reactions: Allergies codeine Adverse Reaction (Verified 03/24/18 18:12) fentanyl Adverse Reaction (Verified 03/24/18 18:12) Home Medications: Ambulatory Orders Isosorbide Mononitrate [Imdur] 30 mg PO DAILY 12/30/16 Metoprolol Tartrate [Lopressor] 50 mg PO BID 12/30/16 Omeprazole Magnesium [Prilosec Otc] 20 mg PO DAILY 12/30/16 Methadone HCl [Methadone] 40 mg pe PO TID 11/27/17 Aspirin [Aspir-Low] 81 mg PO DAILY 01/02/18 Atorvastatin Calcium 10 mg PO BEDTIME 01/02/18 Furosemide [Lasix] 40 mg PO PRN PRN 01/02/18 Gabapentin 300 mg PO TID 01/02/18 Insulin Glargine,Hum.rec.anlog [Lantus] 50 units SUBCUT BEDTIME 01/02/18 Amoxicillin 500 mg PO TID 03/24/18 Disposition Discussed With: Patient, Family
[2018-03-24] MEDS ORDERED: ROCEPHIN IM STA (18:20)
[2018-03-24] MEDS ORDERED: LIDOCAINE HCL 1% SDV IM STA (18:20)
[2018-03-24] MEDS ORDERED: DILAUDID 2 MG/ML SYRINGE IM STA (18:55)
[2018-03-24] MEDS ORDERED: PHENERGAN 25 MG/ML VIAL IM STA (18:56)
== END 2018-03-24 19:38 | disposition home or self-care (01) ==
LOC: ED 18:05
DX: L03.116 Cellulitis of left lower limb (principal); F17.210 Nicotine dependence, cigarettes, uncomplicated; Z79.899 Other long term (current) drug therapy
CPT/HCPCS: 36415; 80053; 83605; 84145; 85025; 87040; 96372; 99283

== ENCOUNTER 2018-03-31 06:41 | Emergency (ER) ==
[2018-03-31 06:41] VITALS: BMI 34.8
[2018-03-31 06:57] VITALS: BP 164/78; TEMP 97.6
--- NOTE | 2018-03-31 08:26 | US ---
EXAM: Bilateral lower extremity venous Doppler duplex study HISTORY: Concern for DVT with lower extremity pain. COMPARISON: Lower extremity venous Doppler and 03/23/2018 TECHNIQUE: Sonographic and Doppler evaluation of the bilateral lower extremity vessels from the comm on femoral through the anterior tibial veins were obtained. Color Doppler wave spectral analysis was performed. Augmentation and compression techniques were also performed. FINDINGS: There is spontaneous Doppler flow seen in the bilateral lower extremity veins from the com mon femoral through the anterior tibial veins. There is normal compression and augmentation througho ut the lower extremity veins. Color Doppler and wave spectral analysis is unremarkable. There is no v isualized reflux. Sonographic appearance of the soft tissues are unremarkable. IMPRESSION: No lower extremity thrombus
--- NOTE | 2018-03-31 08:27 | CT ---
EXAM: CT chest without contrast. HISTORY: Cough. Lower extremity swelling. COMPARISON: Radiograph 02/25/2018. CT 08/24/2017. TECHNIQUE: Multiple axial images of the chest were obtained without intravenous contrast. Images we re reformatted in the sagittal and coronal planes. FINDINGS: Circumscribed subcutaneous fluid collection in the anterior chest measuring 3 x 2.8 cm is stable, likely an epidermoid cyst or possibly old postoperative seroma. There has been previous CABG . Heart size is normal. No pericardial effusion identified. Atherosclerotic calcifications present . Evaluation for lymphadenopathy is limited by lack of intravenous contrast. Calcified right hilar lymph nodes are present. Bilateral gynecomastia noted. Mild emphysematous changes present bilaterally. Calcified granulomatous changes are present. Stable left lower lobe nodule measuring 0.6 cm on axial image 37 noted. The lungs otherwise clear without consolidation, pleural effusion or pneumothorax. No acute abnormality identified within the upper abdomen. No acute osseous abnormality detected. Since the prior study, there has been no significant interval change. IMPRESSION: 1. No acute cardiopulmonary process. 2. Stable left lower lobe micronodule since 12/22/2016. Consider follow-up examination in December to confirm 2-year stability the patient is high risk.
--- NOTE | 2018-03-31 09:02 | ED.PDOC ---
General ED Provider: Dr. TOBY MARIO Chief Complaint: Extremity Swelling/Pain Stated Complaint: chronic leg pain Time Seen by Physician: 07:00 (chronic leg pain) Mode of Arrival: Wheelchair Information Source: Patient Exam Limitations: No limitations Nursing and Triage Documentation Reviewed and Agree: Yes Does patient meet sepsis criteria?: Yes If yes, has appropriate treatment been initiated?: No System Inflammatory Response Syndrome: Not Applicable Sepsis Protocol: For patient's 13 years and over: Temp is 96.8 and below OR 101 and greater Pulse >90 BPM Resp >20/minute Acutely Altered Mental Status Are patient's symptoms suggestive of a new infection, such as: -Pneumonia -Skin, Soft Tissue -Endocarditis -UTI -Bone, Joint Infection -Implantable Device -Acute Abdominal Infection -Wound Infection -Meningitis -Blood Stream Catheter Infection -Unknown Musculoskeletal Complaint Exam - Lower Extremity Complaint/Exam Location of Pain: Reports: Right, Left, Leg Mechanism of Injury: Reports: No known trauma Onset/Duration: chronic Symptoms Are: Still present Onset of Pain: Reports: Weeks Initial Severity: Moderate Current Severity: Mild Location: Reports: Discrete Character: Reports: Aching Alleviating: Reports: Rest Aggravating: Reports: None, Movement Able to Bear Weight: Yes Associated Signs and Symptoms: Denies: Swelling, Redness, Bruising, Fever, Weakness, Numbness, Tingling Related History: Reports: Similar episode DVT Risk Factors: Reports: Recent bedrest Septic Arthritis Risk Factors: Reports: None Related Surgical History: Reports: None Lower Extremity Findings: Absent: Swelling, Ecchymosis, Abnormal contour, Rotation, Ligamentous instability, Laceration, Erythema, Warmth [place] Bundle Intact Distal to Injury: No Differential Diagnoses: DVT Review of Systems - Review Of Systems Constitutional: Reports: No symptoms Eyes: Reports: No symptoms Ears, Nose, Mouth, Throat: Reports: No symptoms Respiratory: Reports: No symptoms Cardiac: Reports: No symptoms GI: Reports: No symptoms : Reports: No symptoms Musculoskeletal: Reports: Other (leg pain) Skin: Reports: No symptoms Neurological: Reports: No symptoms Endocrine: Reports: No symptoms Hematologic/Lymphatic: Reports: No symptoms All Other Systems: Reviewed and Negative Past Medical History - Past Medical History Previously Healthy: No Endocrine: Reports: DM 2 Cardiovascular: Reports: [place], Hypertension Respiratory: Reports: COPD Hematological: Reports: None Gastrointestinal: Reports: None Genitourinary: Reports: None Neuro/Psych: Reports: Anxiety Musculoskeletal: Reports: Arthritis, Back Pain Cancer: 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) - Surgical History General Surgical History: Reports: CABG - Family History Family History: Reports: Diabetes - Social History Smoking Status: Current every day smoker, Heavy tobacco smoker Hx Substance Use: No Alcohol Screening: None - Immunizations Tetanus Shot up to Date: Yes Physical Exam - Physical Exam Appearance: Well-appearing, No pain distress, Well-nourished Eyes: OBDULIO, EOMI, Conjunctiva clear ENT: Ears normal, Nose normal, Oropharynx normal Respiratory: Airway patent, Breath sounds clear, Breath sounds equal, Respirations nonlabored Cardiovascular: RRR, Pulses normal, No rub, No murmur GI/: Soft, Nontender, No masses, Bowel sounds normal, No Organomegaly Musculoskeletal: Normal strength, ROM intact, No edema, No calf tenderness Skin: Warm, Dry Neurological: Sensation intact, Motor intact, Reflexes intact, Cranial nerves intact, Alert, Oriented Psychiatric: Affect appropriate, Mood appropriate Interpretation - Radiology Interpretation Radiology Interpretation By: Radiologist Radiology Results: No acute changes Critical Care Note - Critical Care Note Total Time (mins): 0 Course - Course Hematology/Chemistry: 03/31/18 07:30 03/31/18 07:30 Orders, Labs, Meds: Lab Review 03/31/18 03/31/18 03/31/18 07:30 07:30 07:30 WBC 5.31 RBC 4.84 Hgb 13.2 L Hct 40.4 L MCV 83.5 MCH 27.3 MCHC 32.7 RDW Coeff of Honorio 13.7 Plt Count 202 Immature Gran % (Auto) 0.6 Neut % (Auto) 68.6 Lymph % (Auto) 20.0 Riley % (Auto) 6.4 Eos % (Auto) 3.6 Baso % (Auto) 0.8 Immature Gran # (Auto) 0.0 Neut # (Auto) 3.7 Lymph # (Auto) 1.1 Riley # (Auto) 0.3 L Eos # (Auto) 0.2 Baso # (Auto) 0.0 Sodium 130 L Potassium 3.8 Chloride 85 L Carbon Dioxide 35 H Anion Gap 13.8 BUN 19 H Creatinine 1.01 Estimated GFR (MDRD) 76.00 BUN/Creatinine Ratio 18.81 Glucose 497 H Lactic Acid Calcium 9.1 Total Bilirubin 0.3 AST 6 L ALT 7 L Alkaline Phosphatase 126 Total Creatine Kinase 57 Troponin I 0.0250 Total Protein 6.5 Albumin 2.9 L Globulin 3.6 Albumin/Globulin Ratio 0.81 Procalcitonin 03/31/18 03/31/18 07:30 07:30 WBC RBC Hgb Hct MCV MCH MCHC RDW Coeff of Honorio Plt Count Immature Gran % (Auto) Neut % (Auto) Lymph % (Auto) Riley % (Auto) Eos % (Auto) Baso % (Auto) Immature Gran # (Auto) Neut # (Auto) Lymph # (Auto) Riley # (Auto) Eos # (Auto) Baso # (Auto) Sodium Potassium Chloride Carbon Dioxide Anion Gap BUN Creatinine Estimated GFR (MDRD) BUN/Creatinine Ratio Glucose Lactic Acid 17.1 Calcium Total Bilirubin AST ALT Alkaline Phosphatase Total Creatine Kinase Troponin I Total Protein Albumin Globulin Albumin/Globulin Ratio Procalcitonin 0.08 Orders Category Date Time Status EKG-(ED ONLY) Stat CARDIO 03/31/18 07:10 Completed BLOOD CULTURE (ED ONLY) Stat LAB 03/31/18 07:30 Received CBC W/ AUTO DIFF Stat LAB 03/31/18 07:30 Completed COMPREHENSIVE METABOLIC PANEL Stat LAB 03/31/18 07:30 Completed CREATINE KINASE Stat LAB 03/31/18 07:30 Completed LACTIC ACID Stat LAB 03/31/18 07:30 Completed PROCALCITONIN Stat LAB 03/31/18 07:30 Completed TROPONIN I Stat LAB 03/31/18 07:[address] CHEST W/O CONTRAST Stat RADS 03/31/18 07:12 Completed U/S VENOUS SCAN HANH LEGS Stat RADS 03/31/18 07:10 Completed Vital Signs: Temp Pulse Resp BP Pulse Ox 03/31/18 06:41 97.6 F 80 20 164/78 H 95 Departure - Departure Time of Disposition: 09:03 Disposition: HOME SELF-CARE Discharge Problem: Edema of lower extremity Diabetic neuropathy Qualifiers: Diabetes mellitus type: type 1 Diabetes mellitus complication detail: diabetic autonomic neuropathy Qualified Code(s): 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 Allergies/Adverse Reactions: Allergies codeine Adverse Reaction (Verified 03/31/18 06:57) Hives fentanyl Adverse Reaction (Verified 03/31/18 06:57) Hives Home Medications: Ambulatory Orders Isosorbide Mononitrate [Imdur] 30 mg PO DAILY 12/30/16 Metoprolol Tartrate [Lopressor] 50 mg PO BID 12/30/16 Omeprazole Magnesium [Prilosec Otc] 20 mg PO DAILY 12/30/16 Methadone HCl [Methadone] 40 mg pe PO TID 11/27/17 Aspirin [Aspir-Low] 81 mg PO DAILY 01/02/18 Atorvastatin Calcium 10 mg PO BEDTIME 01/02/18 Furosemide [Lasix] 40 mg PO DAILY PRN 01/02/18 Gabapentin 300 mg PO TID 01/02/18 Insulin Glargine,Hum.rec.anlog [Lantus] 50 units SUBCUT BEDTIME 01/02/18 Amoxicillin 500 mg PO TID 03/24/18
[2018-03-31] MEDS ORDERED: HUMULIN R SUBCUT STA (09:06)
== END 2018-03-31 09:45 | disposition home or self-care (01) ==
LOC: ED 06:41
DX: E10.43 Type 1 diabetes mellitus with diabetic autonomic (poly)neuropathy (principal); R60.0 Localized edema; M79.605 Pain in left leg; M79.604 Pain in right leg; I10 Essential (primary) hypertension; I25.2 Old myocardial infarction; F17.210 Nicotine dependence, cigarettes, uncomplicated; Z85.830 Personal history of malignant neoplasm of bone; Z95.1 Presence of aortocoronary bypass graft; Z79.899 Other long term (current) drug therapy; Z79.4 Long term (current) use of insulin
CPT/HCPCS: 36415; 80053; 82550; 83605; 84145; 84484; 85025; 87040; 93005; 93010; 96372; 99283

== ENCOUNTER 2018-04-22 14:27 | Emergency (ER) ==
[2018-04-22 14:27] VITALS: BMI 34.8
[2018-04-22 14:35] VITALS: BP 116/69; TEMP 96.9
--- NOTE | 2018-04-22 14:55 | ED.PDOC ---
General ED Provider: Dr. TOBY MARIO Chief Complaint: Back Pain Stated Complaint: BACK PAIN Time Seen by Physician: 14:30 (NO INJURY SEEN WITH AMY AT ALL TIMES ) Mode of Arrival: Walk-In Information Source: Patient Exam Limitations: No limitations Primary Care Provider: [facility] Nursing and Triage Documentation Reviewed and Agree: Yes Does patient meet sepsis criteria?: No System Inflammatory Response Syndrome: Not Applicable Sepsis Protocol: For patient's 13 years and over: Temp is 96.8 and below OR 101 and greater Pulse >90 BPM Resp >20/minute Acutely Altered Mental Status Are patient's symptoms suggestive of a new infection, such as: -Pneumonia -Skin, Soft Tissue -Endocarditis -UTI -Bone, Joint Infection -Implantable Device -Acute Abdominal Infection -Wound Infection -Meningitis -Blood Stream Catheter Infection -Unknown Musculoskeletal Complaint Exam - Back Pain Complaint/Exam Mechanism of Injury: Reports: No known trauma Onset/Duration: CHRONIC BACK AND LOWER EXT PAIN LOWER EXT PAIN IS DUE TO NEUROPATHY Symptoms Are: Still present Timing: Constant Episodes Lasting: Weeks Initial Severity: Moderate Current Severity: Moderate Location: Reports: Discrete Character: Reports: Aching Aggravating: Reports: Movements, Walking Alleviating: Reports: Rest, Position Associated Signs and Symptoms: Reports: Swelling (CHRONIC). Denies: Redness, Bruising, Fever, Weakness, Numbness, Tingling, Abdominal pain, Flank pain, Bladder incontinence, Bowel incontinence, Weight loss, Pain with weight bearing Related History: Reports: Similar episode TAD Risk Factors: Reports: Hypertension AAA Risk Factors: Reports: Hypertension Cauda Equina Risk Factors: Reports: None Epidural Abcess Risk Factors: Reports: None Related Surgical History: Reports: None Focal Tenderness: No Paraspinal Muscle Tenderness: No Paraspinal Muscle Spasm: No Scoliosis: No Lordosis: No Kyphosis: No SLR Test: Right Negative, Left Negative Hip Motion Testing Pain: Right Negative, Left Negative Focal Weakness: Present: None Focal Sensory Loss: Present: None Gait: Present: Normal Differential Diagnoses: Strain, Sprain Review of Systems - Review Of Systems Constitutional: Reports: No symptoms Eyes: Reports: No symptoms Ears, Nose, Mouth, Throat: Reports: No symptoms Respiratory: Reports: No symptoms Cardiac: Reports: No symptoms GI: Reports: No symptoms : Reports: No symptoms Musculoskeletal: Reports: Back pain Skin: Reports: No symptoms Neurological: Reports: No symptoms Endocrine: Reports: No symptoms Hematologic/Lymphatic: Reports: No symptoms All Other Systems: Reviewed and Negative Past Medical History - Past Medical History Previously Healthy: No Endocrine: Reports: DM 2 Cardiovascular: Reports: [place], Hypertension Respiratory: Reports: COPD Hematological: Reports: None Gastrointestinal: Reports: None Genitourinary: Reports: None Neuro/Psych: Reports: Anxiety Musculoskeletal: Reports: Arthritis, Back Pain Cancer: 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) - Surgical History General Surgical History: Reports: CABG - Family History Family History: Reports: Diabetes - Social History Smoking Status: Current every day smoker, Heavy tobacco smoker Hx Substance Use: No Alcohol Screening: None Physical Exam - Physical Exam Appearance: Well-appearing, No pain distress, Well-nourished Eyes: OBDULIO, EOMI, Conjunctiva clear ENT: Ears normal, Nose normal, Oropharynx normal Respiratory: Airway patent, Breath sounds clear, Breath sounds equal, Respirations nonlabored Cardiovascular: RRR, Pulses normal, No rub, No murmur GI/: Soft, Nontender, No masses, Bowel sounds normal, No Organomegaly Musculoskeletal: Normal strength, ROM intact, No edema, No calf tenderness Skin: Warm, Dry, Normal color Neurological: Sensation intact, Motor intact, Reflexes intact, Cranial nerves intact, Alert, Oriented Psychiatric: Affect appropriate, Mood appropriate Critical Care Note - Critical Care Note Total Time (mins): 0 Course - Course Vital Signs: Temp Pulse Resp BP Pulse Ox 04/22/18 14:28 96.9 F L 63 16 116/69 92 L Departure - Departure Time of Disposition: 15:30 Disposition: HOME SELF-CARE Discharge Problem: Low back pain Qualifiers: Chronicity: chronic Back pain laterality: midline Sciatica presence: without sciatica Qualified Code(s): M54.5 - Low back pain; G89.29 - Other chronic pain Instructions: Chronic Back Pain (ED) Condition: Good Pt referred to PMD for follow-up: Yes IPMP verified?: No Additional Instructions: Please call your Family Physician as soon as possible to schedule a follow-up appointment. Allergies/Adverse Reactions: Allergies codeine Adverse Reaction (Verified 04/22/18 14:36) Hives fentanyl Adverse Reaction (Verified 04/22/18 14:36) Hives Home Medications: Ambulatory Orders Isosorbide Mononitrate [Imdur] 30 mg PO DAILY 12/30/16 Omeprazole Magnesium [Prilosec Otc] 20 mg PO DAILY 12/30/16 Methadone HCl [Methadone] 40 mg pe PO TID 11/27/17 Aspirin [Aspir-Low] 81 mg PO DAILY 01/02/18 Atorvastatin Calcium 10 mg PO BEDTIME 01/02/18 Furosemide [Lasix] 40 mg PO DAILY PRN 01/02/18 Gabapentin 300 mg PO TID 01/02/18 Insulin Glargine,Hum.rec.anlog [Lantus] 50 units SUBCUT BEDTIME 01/02/18
[2018-04-22] MEDS ORDERED: DILAUDID 0.5 MG/0.5 ML SYRINGE IM STA (14:56)
== END 2018-04-22 15:40 | disposition home or self-care (01) ==
LOC: ED 14:27
DX: M54.5 Low back pain (principal); G89.29 Other chronic pain; M79.669 Pain in unspecified lower leg; G62.9 Polyneuropathy, unspecified
CPT/HCPCS: 96372; 99282

== ENCOUNTER 2018-04-24 07:52 | Outpatient (CLI) ==
[2018-04-24 11:37] VITALS: BMI 37.5
== END 2018-04-24 08:09 | disposition critical access hospital (66) ==
LOC: AMBL 07:52
PROVIDERS: ATTEND Emergency Medicine
DX: I10 Essential (primary) hypertension (principal); M54.5 Low back pain; G89.29 Other chronic pain

== ENCOUNTER 2018-04-24 08:08 | Inpatient (IN) ==
--- NOTE | 2018-04-24 08:20 | ED.PDOC ---
General ED Provider: Dr. SUSAN MCINTYRE Chief Complaint: Hypertension Stated Complaint: Lt Hip and Lower Back Pain. Onset with worsening pain after falling out of bed 2 nights ago. History of chronic low back pain due to bone cancer. Accompained with BED LASTER Korin at all times. Comments he take Metadone but did not take it due to his BP being elevated to 193/91. No radicuating features. Pain primarily lt lateral hip into ant thigh and lumbar spine. Records revealed Had CT Pelvis in January which showed no acute pathology and mod degenerative changes. Time Seen by Physician: 08:20 Mode of Arrival: Ambulance Information Source: [facility] Nursing and T[facility] Documentation Reviewed and Agree: Yes Does patient meet sepsis criteria?: No System Inflammatory Response Syndrome: Not Applicable Sepsis Protocol: For patient's 13 years and over: Temp is 96.8 and below OR 101 and greater Pulse >90 BPM Resp >20/minute Acutely Altered Mental Status Are patient's symptoms suggestive of a new infection, such as: -Pneumonia -Skin, Soft Tissue -Endocarditis -UTI -Bone, Joint Infection -Implantable Device -Acute Abdominal Infection -Wound Infection -Meningitis -Blood Stream Catheter Infection -Unknown Musculoskeletal Complaint Exam - Back Pain Complaint/Exam Mechanism of Injury: Reports: Trauma Onset/Duration: 3 days after falling out of bed Symptoms Are: Still present Timing: Constant Episodes Lasting: Days (3) Initial Severity: Mild Current Severity: Moderate Location: Reports: Diffuse Character: Reports: Aching, Stiffness Aggravating: Reports: Movements Alleviating: Reports: None Associated Signs and Symptoms: Denies: Swelling, Redness, Bruising, Fever, Weakness, Numbness, Tingling, Abdominal pain, Flank pain, Bladder incontinence, Bowel incontinence, Weight loss, Pain with weight bearing TAD Risk Factors: Reports: None AAA Risk Factors: Reports: None Cauda Equina Risk Factors: Reports: None Epidural Abcess Risk Factors: Reports: Lower extremity numbness, Lower extremity weakness Focal Tenderness: Yes Paraspinal Muscle Tenderness: Yes Paraspinal Muscle Spasm: Yes SLR Test: Left Positive Gait: Present: Unable Differential Diagnoses: Sprain, Other (Soft tissue abscess) Review of Systems - Review Of Systems Constitutional: Reports: No symptoms Eyes: Reports: No symptoms Ears, Nose, Mouth, Throat: Reports: No symptoms Respiratory: Reports: No symptoms Cardiac: Reports: No symptoms GI: Reports: No symptoms : Reports: No symptoms Musculoskeletal: Reports: Back pain, Other (Hip pain ) Neurological: Reports: No symptoms, Numbness, Weakness Endocrine: Reports: No symptoms Hematologic/Lymphatic: Reports: No symptoms All Other Systems: Reviewed and Negative Past Medical History - Past Medical History Previously Healthy: No Endocrine: Reports: DM 2 Cardiovascular: Reports: [place], Hypertension Respiratory: Reports: COPD Hematological: Reports: None Gastrointestinal: Reports: None Genitourinary: Reports: None Neuro/Psych: Reports: Anxiety Musculoskeletal: Reports: Arthritis, Back Pain Cancer: 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) - Surgical History General Surgical History: Reports: CABG - Family History Family History: Reports: Diabetes - Social History Smoking Status: Current every day smoker, Heavy tobacco smoker Hx Substance Use: No Alcohol Screening: None Physical Exam - Physical Exam Appearance: Ill-appearing, Obese Ill-appearing: Mild Pain Distress: Moderate Eyes: OBDULIO, EOMI, Conjunctiva clear ENT: Ears normal, Nose normal, Oropharynx normal Neck: Supple Respiratory: Airway patent, Breath sounds clear, Breath sounds equal, Respirations nonlabored Cardiovascular: RRR, Pulses normal, No rub, No murmur GI/: Soft, Nontender, No masses, Bowel sounds normal, No Organomegaly Musculoskeletal: Normal strength, ROM intact, No edema, No calf tenderness Skin: Warm, Dry, Normal color Neurological: Sensation intact, Motor intact, Reflexes intact, Cranial nerves intact, Alert, Oriented Psychiatric: Affect appropriate Interpretation - Radiology Interpretation Radiology Interpretation By: Radiologist Exam Interpreted: CT Scan (Pelvis-neg/ Lumbar spine-(+ spinal canal stenosis and poss deep soft tissue abnormality)) Physician Notification - Case Discussed Physician Notified: Dr Jeronimo Time of Notification: 10:15 (agrees to admit) Critical Care Note - Critical Care Note Total Time (mins): 0 Course - Course Hematology/Chemistry: 04/24/18 09:15 04/24/18 09:15 Orders, Labs, Meds: Lab Review 04/24/18 04/24/18 04/24/18 09:14 09:15 09:15 WBC 5.18 RBC 4.90 Hgb 13.2 L Hct 40.6 L MCV 82.9 MCH 26.9 L MCHC 32.5 RDW Coeff of Honorio 13.8 Plt Count 207 Immature Gran % (Auto) 0.2 Neut % (Auto) 72.0 Lymph % (Auto) 17.0 [place] % (Auto) 6.0 Eos % (Auto) 4.4 Baso % (Auto) 0.4 Immature Gran # (Auto) 0.0 Neut # (Auto) 3.7 Lymph # (Auto) 0.9 [place] # (Auto) 0.3 L Eos # (Auto) 0.2 Baso # (Auto) 0.0 ESR 28 H Sodium 133 L Potassium 4.3 Chloride 94 L Carbon Dioxide 30 Anion Gap 13.3 BUN 9 Creatinine 0.85 Estimated GFR (MDRD) 93.00 BUN/Creatinine Ratio 10.58 Glucose 391 H Calcium 9.2 Total Bilirubin 0.4 AST 10 L ALT 10 L Alkaline Phosphatase 96 Total Protein 6.6 Albumin 3.0 L Globulin 3.6 Albumin/Globulin Ratio 0.83 Urine Color Yellow Urine Clarity Clear Urine pH 7.5 Ur Specific [place] 1.015 Urine Protein Negative Urine Glucose (UA) 2+ Urine Ketones Negative Urine Blood Negative Urine Nitrite Negative Urine Bilirubin Negative Urine Urobilinogen 2.0 Ur Leukocyte Esterase Negative Urine Opiates Screen Ur Oxycodone Screen Urine Methadone Screen Ur Propoxyphene Screen Ur Barbiturates Screen U Tricyclic Antidepress Ur Phencyclidine Scrn Ur Amphetamine Screen U Methamphetamines Scrn U Benzodiazepines Scrn Urine Cocaine Screen U Cannabinoids Screen 04/24/18 09:25 WBC RBC Hgb Hct MCV MCH MCHC RDW Coeff of Honorio Plt Count Immature Gran % (Auto) Neut % (Auto) Lymph % (Auto) [place] % (Auto) Eos % (Auto) Baso % (Auto) Immature Gran # (Auto) Neut # (Auto) Lymph # (Auto) [place] # (Auto) Eos # (Auto) Baso # (Auto) ESR Sodium Potassium Chloride Carbon Dioxide Anion Gap BUN Creatinine Estimated GFR (MDRD) BUN/Creatinine Ratio Glucose Calcium Total Bilirubin AST ALT Alkaline Phosphatase Total Protein Albumin Globulin Albumin/Globulin Ratio Urine Color Urine Clarity Urine pH Ur Specific [place] Urine Protein Urine Glucose (UA) Urine Ketones Urine Blood Urine Nitrite Urine Bilirubin Urine Urobilinogen Ur Leukocyte Esterase Urine Opiates Screen Negative Ur Oxycodone Screen Negative Urine Methadone Screen Positive Ur Propoxyphene Screen Negative Ur Barbiturates Screen Negative U Tricyclic Antidepress Negative Ur Phencyclidine Scrn Negative Ur Amphetamine Screen Negative U Methamphetamines Scrn Negative U Benzodiazepines Scrn Negative Urine Cocaine Screen Negative U Cannabinoids Screen Negative Orders Category Date Time Status CBC W/ AUTO DIFF Stat LAB 04/24/18 09:15 Completed CMP [COMPREHENSIVE METABOLIC PANEL] Stat LAB 04/24/18 09:15 Completed ESR Stat LAB 04/24/18 09:15 Completed UA [URINALYSIS C & S IF INDICATED] Stat LAB 04/24/18 09:14 Completed URINE DRUG SCREEN (RAPID FOR ED) [DRUG SCREEN, URINE, LAB 04/24/18 09:25 Completed RAPID] Stat Hydromorphone HCl [Dilaudid 0.5 mg/0.5 ml Syringe] MEDS 04/24/18 09:04 Discontinued 0.5 mg IM ONCE STA CT LUMBAR SPINE W/O CONTRAST Stat RADS 04/24/18 09:[address] PELVIS W/O CONTRAST Stat RADS 04/24/18 09:00 Completed Medications Generic Name Dose Route Start Last Admin Trade Name Freq PRN Reason Stop Dose Admin Acetaminophen 650 mg 04/24/18 10:50 Tylenol PO Q4H PRN Temp> 101 deg or mild pain Enoxaparin Sodium 40 mg 04/24/18 11:00 Lovenox SUBCUT DAILY JAYCEE Sodium Chloride 1,000 mls @ 125 mls/hr 04/24/18 11:00 Sodium Chloride IV .Q8H JAYCEE Piperacillin Sod/Tazobactam 100 mls @ 100 mls/hr 04/24/18 10:44 Sod 4.5 gm/ Sodium Chloride IV 04/24/18 11:43 ONCE STA Piperacillin Sod/Tazobactam 50 mls @ 50 mls/hr 04/24/18 18:00 Sod 4.75 gm/ Sodium Chloride IV Q6HR JAYCEE Sodium Chloride 1 syr 04/24/18 10:43 Saline Flush IVF PRN PRN To flush IV Discontinued Medications Generic Name Dose Route Start Last Admin Trade Name Freq PRN Reason Stop Dose Admin Hydromorphone HCl 0.5 mg 04/24/18 09:04 04/24/18 09:32 Dilaudid 0.5 Mg/0.5 Ml Syringe IM 04/24/18 09:05 0.5 mg ONCE STA Administration Vital Signs: Temp Pulse Resp BP Pulse Ox 04/24/18 08:10 97.6 F 64 16 156/67 H 97 Departure - Departure Time of Disposition: 10:40 Disposition: ADMITTED INPATIENT Discharge Problem: Lumbar spinal stenosis, Psoas abscess, left, Plasmacytoma of bone, Back pain, Uncontrolled diabetes mellitus Condition: Fair Pt referred to PMD for follow-up: Yes IPMP verified?: No Allergies/Adverse Reactions: Allergies codeine Adverse Reaction (Verified 04/22/18 14:36) Hives fentanyl Adverse Reaction (Verified 04/22/18 14:36) Hives Home Medications: Ambulatory Orders Isosorbide Mononitrate [Imdur] 30 mg PO DAILY 12/30/16 Omeprazole Magnesium [Prilosec Otc] 20 mg PO DAILY 12/30/16 Methadone HCl [Methadone] 40 mg pe PO TID 11/27/17 Aspirin [Aspir-Low] 81 mg PO DAILY 01/02/18 Atorvastatin Calcium 10 mg PO BEDTIME 01/02/18 Furosemide [Lasix] 40 mg PO DAILY PRN 01/02/18 Gabapentin 300 mg PO TID 01/02/18 Insulin Glargine,Hum.rec.anlog [Lantus] 50 units SUBCUT BEDTIME 01/02/18 Disposition Discussed With: Patient
[2018-04-24] MEDS ORDERED: DILAUDID 0.5 MG/0.5 ML SYRINGE IM STA (09:04)
--- NOTE | 2018-04-24 10:03 | CT ---
Exam: CT scan of lumbar spine. Date: 04/24/2018. Comparison: 06/26/2017. HISTORY: Fell; history of bone cancer. TECHNIQUE: Helical scan of the lumbar spine was performed without contrast. FINDINGS: There are five lumbar vertebral bodies and the alignment is normal. A vertebroplasty or ky phoplasty is again seen on L3, but there has been further impaction of the L3 vertebral body with per sistent retropulsion into the neural canal of approximately 1.1 cm. It also extends anteriorly to th e superior endplate of L4. The remaining vertebral body heights are maintained. There is loss of in tervertebral disc space height at L5-S1. No spondylolysis is observed. T12-L1: No abnormalities are seen. L1-2: No abnormalities are seen. L2-3: There is no significant impression upon the thecal sac. The foramen are patent. There is mild facet hypertrophy. L3-4: The diameter of the central canal has decreased to approximately 1 cm from the prior study elisabet n to approximately 0.5 cm on the current exam. The foramen are patent. L4-5: There is mild diffuse disc bulge with mild impression upon the thecal sac. There is moderate b ilateral neural foraminal narrowing from facet arthropathy. There is a 2.1 x 2.1 cm round hyperattenu ating area immediately adjacent to the left L4-5 disc interspace that has a small amount of air with in this collection; it is deep to the left psoas muscle. L5-S1: There is no significant impression upon the thecal sac. There is mild right neural foraminal narrowing from facet arthropathy. There is left facet arthropathy but no significant neural foramin al narrowing. Impression: Compared with 06/26/2017. An L3 vertebroplasty or kyphoplasty is again seen but there h as been further impaction of the L3 vertebral body. The retropulsion of the vertebral body into the neural canal previously narrowed the canal diameter to approximately 1 cm, but the canal diameter now has decreased to approximately 0.5 cm. In addition, there has been the interval appearance of a 2.1 x 2.1 cm hyperattenuating area immediate ly adjacent to the left L4-5 disc interspace and deep to the left psoas muscle with a small amount of air centrally. The etiology of this finding is not known but does not appear to be associated with the L3 vertebroplasty or kyphoplasty, as that was present on the prior study and this is a new finding. MRI is recommended for more definitive evaluat ion of this finding as well as to evaluate for the severity of the central canal stenosis at L3-4.
--- NOTE | 2018-04-24 10:06 | CT ---
Exam: CT scan of the pelvis without contrast. Date: 04/24/2018. Comparison: 02/04/2018. HISTORY: Fell with history of bone cancer. TECHNIQUE: Helical scan of the pelvis was performed without contrast. FINDINGS: There is a 2.1 cm diastasis at the level of the umbilicus with creation of a small fat alfred led umbilical hernia. The soft tissues and musculature overlying the bony pelvis are otherwise withi n normal limits although portions of the lateral margins of the subcutaneous tissues were not include d in the field of view. The small bowel and colon within the pelvis are normal. The pelvic sidewall and bladder are normal. The prostate, rectum and inguinal regions are also normal. The mineralization is normal. The bony pelvis is intact and no fracture or dislocation is observed. T here are probable bone island in the femoral heads bilaterally. No acute fracture or dislocation is observed. Impression: No acute findings in the bony pelvis. Umbilical hernia.
[2018-04-24] MEDS ORDERED: ZOSYN 4.5 GM 4.5 GM in SODIUM CHLORIDE 100 ML IV STA (10:44)
[2018-04-24] MEDS ORDERED: TYLENOL PO PRN (10:50)
[2018-04-24] MEDS ORDERED: ZOFRAN 4 MG/2 ML IVP PRN (10:59)
[2018-04-24] MEDS: SODIUM CHLORIDE 1,000 ML IV SCH (11:04)
[2018-04-24] MEDS: LOVENOX SUBCUT SCH (11:33)
[2018-04-24 11:37] VITALS: BMI 37.5
[2018-04-24] MEDS ORDERED: METHADONE PO SCH ×2 (13:00→15:00)
[2018-04-24] MEDS ORDERED: LASIX TAB PO PRN (13:17)
[2018-04-24] MEDS ORDERED: METHADONE PO ONE (13:55)
[2018-04-24] MEDS: NEURONTIN PO SCH ×2 (14:33→20:43)
[2018-04-24] MEDS: METHADONE PO SCH ×2 (14:35→20:43)
[2018-04-24] MEDS ORDERED: HUMULIN R ONE (17:43)
[2018-04-24] MEDS ORDERED: ZOSYN IV SCH (18:00)
[2018-04-24] MEDS ORDERED: SODIUM CHLORIDE IV SCH (18:00)
[2018-04-24] MEDS: ZOSYN 4.5 GM 4.5 GM in SODIUM CHLORIDE 100 ML IV SCH (20:42)
[2018-04-24] MEDS: LIPITOR PO SCH (20:43)
[2018-04-24] MEDS ORDERED: LANTUS SUBCUT SCH (21:00)
[2018-04-24] MEDS: HUMULIN R SUBCUT PRN (21:30)
[2018-04-25] MEDS: SODIUM CHLORIDE 1,000 ML IV SCH ×2 (02:51→09:17)
[2018-04-25] MEDS: ZOSYN 4.5 GM 4.5 GM in SODIUM CHLORIDE 100 ML IV SCH ×3 (04:41→21:13)
[2018-04-25] MEDS: IMDUR PO SCH (08:06)
[2018-04-25] MEDS: METHADONE PO SCH ×3 (08:06→20:53)
[2018-04-25] MEDS: PRILOSEC PO SCH (08:06)
[2018-04-25] MEDS: ASPIRIN EC PO SCH (08:06)
[2018-04-25] MEDS: NEURONTIN PO SCH ×3 (08:06→20:54)
[2018-04-25] MEDS ORDERED: SODIUM CHLORIDE 1,000 ML IV SCH (08:30)
[2018-04-25] MEDS ORDERED: NON-FORMULARY MEDICATION (Omeprazole Magnesium [Prilosec Otc] 20 MG) PO SCH (09:00)
[2018-04-25] MEDS: ZESTRIL PO SCH (09:41)
[2018-04-25] MEDS: LOVENOX SUBCUT SCH (09:42)
[2018-04-25] MEDS: HUMULIN R SUBCUT PRN ×3 (11:48→21:05)
[2018-04-25] MEDS: LIPITOR PO SCH (20:54)
[2018-04-25] MEDS: LANTUS SUBCUT SCH (20:55)
[2018-04-26] MEDS: ZOSYN 4.5 GM 4.5 GM in SODIUM CHLORIDE 100 ML IV SCH ×3 (06:26→20:59)
[2018-04-26] MEDS: METHADONE PO SCH ×3 (06:27→20:59)
[2018-04-26] MEDS: PRILOSEC PO SCH (06:27)
[2018-04-26] MEDS: HUMULIN R SUBCUT PRN ×3 (06:28→21:05)
--- NOTE | 2018-04-26 11:16 | HP ---
DATE OF SERVICE: 04/24/18 CHIEF COMPLAINT: The patient came to the ER for intractable lower back pain. HISTORY OF PRESENT ILLNESS: This is a 58-year-old male who came to the emergency room intractable back pain. The patient has a plasmacytoma of the lower back and for this the patient had radiation treatment. The patient has been having more pain, unable to walk, unable to sit. He came to the emergency room and was seen by Dr. Carranza. White count was normal. Sugars 391, sodium 133. Urine negative. Toxicology screen positive for Methadone. CT of the lumbar and pelvic spine showed narrowing of the spinal canal and mass like appearance in the psoas muscle. The patient has a history of going to Pain Management and the patient did receive pain shots in the back exactly one month ago. Given high risk for abscess, CT scan suggested to get MRI. Also, uncontrolled diabetes. At the same time, blood pressure was 179/74 so the patient was admitted to the hospital for pain control, sugar control and further evaluation of the psoas muscle/mass. REVIEW OF SYSTEMS: CONSTITUTIONAL: No fever, no chills. HEENT: Normal. ENDOCRINE: Elevated blood sugars. No weight gain; no weight loss. CVS: No chest pain. No PND, no orthopnea. No shortness of breath. No PND, no orthopnea. RESPIRATORY: No cough, no congestion. No hemoptysis. GI: No nausea, no vomiting. No abdominal pain. No melena. : No hematuria. No polyuria. MUSCULOSKELETAL: Lower back pain, chronic pain management. PSYCHIATRIC: Sad. Not anxious. No depression. No suicidal thoughts. No homicidal thoughts. SKIN: Intact, no open lesions. 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 No alcohol. No drugs. Single, lives alone. FAMILY HISTORY: Significant for diabetes and cancer. MEDICATIONS: (HOME) Imdur Prilosec Methadone Atorvastatin Lasix Aspirin Lantus Neurontin Lisinopril ALLERGIES: CODEINE AND FENTANYL PHYSICAL EXAMINATION: V/S: BP 179/74, respiratory rate 20, heart rate 62, temperature 98.6, saturation 95. HEENT: Atraumatic, normocephalic. No scleral icterus. Pallor positive. Mucosa dry. NECK: Supple. No JVD, no bruit. No lymphadenopathy. No thyromegaly. HEART: S1, S2 normal. No murmur. No cyanosis or clubbing. No ascites. LUNGS: Decreased breath sounds. Clear to auscultation. No rales or rhonchi. ABDOMEN: Soft, nontender. Bowel sounds are active. No CVA tenderness. No rigidity or guarding. EXTREMITIES: 2+ leg edema. No cyanosis or clubbing. MUSCULOSKELETAL: Paraspinal tenderness in the lumbar area, right side more than left. NEUROLOGIC: The patient is awake and alert. SKIN: Intact; no open lesions. LYMPHATIC: No lymph nodes palpable. LABS: White count 5.18, hemoglobin 13.2, hematocrit 40.6, platelet count 207. Sodium 133, potassium 4.3, chloride 94, bicarb 30, BUN 9, creatinine 0.85, glucose 391. ASSESSMENT: 1. UNCONTROLLED DIABETES 2. INTRACTABLE LOWER BACK PAIN WITH MASS-LIKE LESION ON CT SCAN 3. HISTORY OF DIABETES 4. CAD 5. BYPASS SURGERY 6. HYPERTENSION 7. DYSLIPIDEMIA 8. OSTEOARTHRITIS 9. DJD SPINE PLAN: 1. Admit the patient to the regular floor. 2. CBC, CMP today and daily. 3. Cardiac enzymes and troponin. 4. Lovenox for DVT prophylaxis. 5. Dilaudid 0.5 mg IM 6. Insulin will increase to 60 units 7. Methadone, Neurontin, Zosyn covering for possible psoas abscess 8. IV fluids 125 mL/hr TIME SPENT: MORE THAN 65 minutes MTDD
--- NOTE | 2018-04-26 11:22 | PN ---
DATE OF SERVICE: 04/25/18 SUBJECTIVE: The patient is admitted with uncontrolled diabetes and psoas muscle mass, questionable abscess, being treated with antibiotics. There is some discrepancy about the medications, will confirm with [facility]. The patient is ambulatory, can move his legs and goes out to smoke. REVIEW OF SYSTEMS: CONSTITUTIONAL: No fever, no chills. HEENT: Normal. ENDOCRINE: No weight gain, no weight loss. CVS: No angina symptoms. No CHF symptoms. No palpitations. No atypical chest pain for CAD. No shortness of breath. No PND, no orthopnea. RESPIRATORY: No cough, no hemoptysis. GI: No nausea, no vomiting. No abdominal pain. : No hematuria. No polyuria. MUSCULOSKELETAL: No joint swelling. PSYCHIATRIC: Not anxious. No depression. No suicidal thoughts. No homicidal thoughts. SKIN: Intact. No rash. PHYSICAL EXAMINATION: V/S: BP 168/80, respiratory rate 18, heart rate 64, temperature 97.7, saturation 95. HEENT: Normocephalic, atraumatic. Mucosa dry. Pallor positive. No icterus. NECK: Supple. No JVD, no carotid bruit. No lymphadenopathy. LUNGS: Clear to auscultation. No rales or rhonchi. HEART: S1, S2 normal. No S3. No murmur, gallop or regurgitation. ABDOMEN: Soft, nontender. Bowel sounds active. No rigidity. No rebound or guarding. No CVA tenderness. EXTREMITIES: 1 to 2+ leg edema. No cyanosis or clubbing. MUSCULOSKELETAL: Lower back paraspinal tenderness present. No rigidity. NEUROLOGIC: Awake, alert. No focal deficit. LYMPHATIC: No lymph nodes palpable. SKIN: Intact. LABS: White count 4.71, hemoglobin 12.2, hematocrit 38.1, platelet count 240. Sodium 136, potassium 3.7, chloride 102, bicarb 28, BUN 9, creatinine 0.76, glucose 156. HBA1C 11.6. ASSESSMENT: 1. UNCONTROLLED DIABETES 2. PSOAS MUSCLE MASS, RULE OUT ABSCESS 3. HISTORY OF DJD SPINE AND INJECTIONS IN THE BACK 4. PLASMACYTOMA OF THE BACK WHICH HAS BEEN TREATED 5. CAD 6. BYPASS SURGERY 7. HYPERTENSION 8. DYSLIPIDEMIA PLAN: 1. Continue Zosyn 2. Decrease IV fluids to 40 mL/hr 3. Methadone 4. Neurontin TIME SPENT: More than 35 minutes MTDD
[2018-04-26] MEDS: LOVENOX SUBCUT SCH (12:23)
[2018-04-26] MEDS: IMDUR PO SCH (12:24)
[2018-04-26] MEDS: ASPIRIN EC PO SCH (12:24)
[2018-04-26] MEDS: NEURONTIN PO SCH ×3 (12:25→20:58)
[2018-04-26] MEDS: ZESTRIL PO SCH (12:25)
--- NOTE | 2018-04-26 13:32 | MRI ---
EXAM: MRI lumbar spine without and with IV contrast. DATE: 26 April 2018. HISTORY: Lumbar severe back pain. Spinal stenosis patient has history plasmacytoma. TECHNIQUE: Sagittal and axial T1W, T2W, and T1W postcontrast sequences of the lumbar spine along wit h sagittal IR and coronal T2W sequences were obtained using 1.2 Kassandra magnet. Note: Mild motion artifacts and grainy appearance are observed on several sequences. CONTRAST: Omniscan - 20 ml IV. COMPARISON: CT L-spine 24 April 2018. MRI L-spine 01/06/2017. FINDINGS: There are five [id number] lumbar vertebra. No lumbar scoliosis is evident. Vertebra l body height loss and internal black signal within the L3 vertebral body are consistent with previou s fracture and cement augmentation. T2W/T1W bright signal throughout much of the L2 and L4 vertebral bodies is new compared to December 2016. Within the L4 vertebral body, there is a new T2W/T1W heteroge neously dark, IR bright, 17 x 28 x 17 mm focus. This lesion also demonstrates heterogeneous enhancem ent. Minor height loss at the anterior superior aspect of the L4 vertebral body appears chronic. Re maining lumbar vertebra are normal in height. Small, chronic Schmorl's nodes are seen at L5 and S1. Prominent osteophytes are present at L3-4 and L5-S1. Mild L3-4 and moderate L5-S1 disc space narrow ing is detected. No acute sacral fracture or stress reaction is identified. Conus medullaris termin ates at L1. No abnormal contrast enhancement is identified within the spinal cord or nerve roots. N o acute sacral fracture or stress reaction is evident. SI joints are unremarkable. Conus medullaris terminates at L1. Visible spinal cord reveals no syrinx, cord edema, myelomalacia, or enhancing amena plasm. No abnormal contrast enhancement is seen in the spinal cord, nerve roots, or intervertebral d iscs. No retroperitoneal lymphadenopathy or aortic aneurysm is detected. Atherosclerotic plaques are prese nt in the aortic wall. A T2W/T1W dark, peripherally enhancing, 2.1 cm lesion in the left psoas muscl e corresponds with a high density focus on recent CT scan right psoas muscle is normal. Posterior pa raspinal muscles are symmetric bilaterally. Visible portions of the kidneys and adrenal glands are u nremarkable. No definitive hepatic or splenic neoplasm is seen on these limited images. Segmental analysis: T11-12: No disc protrusion, central stenosis or foraminal stenosis. T12-L1: No disc protrusion, central stenosis or foraminal stenosis. L1-2: No disc protrusion, central stenosis or foraminal stenosis. L2-3: Minor concentric disc bulge, abundant dorsal epidural fat and minor facet arthropathy cause mi ld central canal stenosis and slight bilateral foraminal encroachment. L3-4: Moderate concentric disc bulge and posterior cortical buckling at the L3 inferior endplate ext ending approximately 7 mm into the spinal canal cause severe central canal stenosis and severe bilate ral foraminal stenoses. Each L3 nerve root appears compressed in the foramen. L4-5: Minor concentric disc bulge, mild bilateral facet arthropathy, and slight ligamentum flavum hy pertrophy cause mild central canal stenosis, severe right foraminal stenosis, and moderate left fanta inal stenosis. Right L4 nerve root appears compressed in the foramen. L5-S1: Small concentric disc bulge and mild facet arthropathy cause mild central canal stenosis, mar ked right foraminal stenosis, and mild left foraminal narrowing. Right L5 nerve root contacts the di sc bulge near the lateral aspect of the foramen. IMPRESSIONS: 1. Lumbar spine chronic compression fracture of L3 treated with cement. Retropulsed fragment at the L3 inferior endplate causes severe central canal stenosis at L3-4 and contributes to severe bilatera l foraminal stenoses with compression of each exiting L3 nerve root. This has a likely level to be s ymptomatic. Unexpected findin. IR bright, heterogeneously enhancing lesion in the L4 vertebra is new since previous MRI. This could represent a plasmacytoma. Consider bone scan or PET-CT for further evaluati on. Biopsy may be necessary to confirm a diagnosis. 3. Left psoas muscle lesion - consider recent hemorrhage. 4. Chronic, mild anterior compression of L4 body. 5. Correlate for previous XRT the at L2, L3, and L4. 6. Mild central canal stenoses at L2-3, L4-5, and L5-S1. 7. Multilevel lumbar foraminal stenoses as described. Bilateral L3, right L4, and right L5 nerve ro ots compromised in the foramen and may be sources for pain/radiculopathy. 8. Moderate abdominal aortic atherosclerosis.
[2018-04-26] MEDS: LANTUS SUBCUT SCH (20:59)
[2018-04-26] MEDS: LIPITOR PO SCH (21:09)
[2018-04-27] MEDS: METHADONE PO SCH ×2 (05:45→12:18)
[2018-04-27] MEDS: ZOSYN 4.5 GM 4.5 GM in SODIUM CHLORIDE 100 ML IV SCH (05:45)
[2018-04-27] MEDS: HUMULIN R SUBCUT PRN ×2 (05:45→11:31)
[2018-04-27] MEDS: PRILOSEC PO SCH (05:45)
--- NOTE | 2018-04-27 09:24 | PN ---
DATE OF SERVICE: 04/26/18 SUBJECTIVE: The patient was admitted with intractable lower back pain and mass in psoas area. The patient will be getting MRI of the lumbar spine today. Still having the pain and radiates to the left leg more. REVIEW OF SYSTEMS: CONSTITUTIONAL: No fever, no chills. HEENT: Normal. ENDOCRINE: No weight gain, no weight loss. CVS: No angina symptoms. No CHF symptoms. No palpitations. No atypical chest pain for CAD. No shortness of breath. No PND, no orthopnea. RESPIRATORY: No cough, no hemoptysis. GI: No nausea, no vomiting. No abdominal pain. : No hematuria. No polyuria. MUSCULOSKELETAL: No joint swelling. PSYCHIATRIC: Not anxious. No depression. No suicidal thoughts. No homicidal thoughts. SKIN: Intact. No rash. PHYSICAL EXAMINATION: V/S: blood pressure 149/69, respiratory rate 20, heart rate 83, temperature 98.2 with saturation 95%. HEENT: Normocephalic, atraumatic. Mucosa dry. Pallor positive. No icterus. NECK: Supple. No JVD, no carotid bruit. No lymphadenopathy. LUNGS: Clear to auscultation. No rales or rhonchi. HEART: S1, S2 normal. No S3. No murmur, gallop or regurgitation. ABDOMEN: Soft, nontender. Bowel sounds active. No rigidity. No rebound or guarding. No CVA tenderness. EXTREMITIES: No cyanosis, clubbing. 2+ edema. MUSCULOSKELETAL: No joint swelling. NEUROLOGIC: Awake, alert. No focal deficit. LYMPHATIC: No lymph nodes palpable. SKIN: Intact. LABS: WBC 6.64, hgb 12.5, hct 38.1, plt count 226, sodium 137, potassium 4.3, chloride 100, bicarb 29, BUN 10, creatinine 0.88, glucose 200. ASSESSMENT: 1. Intractable lower back pain 2. Psoas muscle mass, rule out abscess 3. Diabetes, uncontrolled 4. History of plasmacytoma status post treatment 5. Sleep apnea on CPAP 6. Leg edema 7. Osteoarthritis 8. DJD spine PLAN: 1. MRI of the lumbar spine with and without contrast 2. Lovenox for the DVT prophylaxis 3. Accu-checks with coverage 4. Zosyn IV TIME SPENT: More than 35 minutes MTDD
[2018-04-27] MEDS: NEURONTIN PO SCH (10:21)
[2018-04-27] MEDS: IMDUR PO SCH (10:22)
[2018-04-27] MEDS: ASPIRIN EC PO SCH (10:22)
[2018-04-27] MEDS: ZESTRIL PO SCH (10:22)
[2018-04-27] MEDS: LOVENOX SUBCUT SCH (10:23)
[2018-04-27 13:40] VITALS: BP 142/72; TEMP 97.9
--- NOTE | 2018-04-27 17:21 | PCM.HOSP ---
- Initial Hospital Care [id number] 70 Minutes Bedside ([id number]): 04/24 - Subsequent Care [id number] 35 Minutes per Day ([id number]): 04/25. 04/26 - Hospital Discharge [id number] More than 30 Minutes ([id number]): 04/27
--- NOTE | 2018-04-28 14:57 | DS ---
DATE OF SERVICE: 04/27/18 FINAL DIAGNOSIS: 1. Lumbar spine astrocytoma 2. Lumbar spine chronic compression fracture L3 with cement and retropulsion of the fragment of L3 endplate causing severe central canal stenosis at L3-L4 3. Bright heterogeneously enhancing lesion on the L4 vertebra new since before 4. Plasmacytoma 5. Diabetes 6. Left Psoas muscle mostly hemorrhage 7. History of ME 1997 8. CVA 2007 9. Hypertension 10.Sleep apnea 11.COPD 12.GERD 13.Bulging disc 14.Spinal stenosis 15.Depression 16.Anxiety 17.Osteoarthritis 18.Leg edema 19.Plasmacytoma of the spine receiving radiation, Dr. Lutz of [facility] 20.Back surgery Dr. Lutz DISCHARGE INSTRUCTIONS: Transfer the patient to the [facility] under the care of Dr. Lutz for possible lumbar spine surgery. Continue the medication. Accu-check with coverage MEDICATIONS AT DISCHARGE: Piperacillin Methadone Aspirin Dilaudid Insulin Lovenox Neurontin Omeprazole DIET INSTRUCTIONS: Cardiac and diabetic diet ACTIVITY: Bed rest DISEASE SPECIFIC EDUCATION: Astrocytoma Spinal stenosis and risk of paralysis in both lower extremities and discussed and verbalized understanding. HOSPITAL COURSE: Nitish Estrada 58 year old gentleman who was diagnosed with a plasmacytoma and taking radiation and chemotherapy by Dr. Lutz. The patient came to the emergency room with severe intractable left lower back pain. CT scan in the emergency room was done by Dr. Carranza which showed the questionable psoas muscular mass. In review of his recent back injection assumed to be the abscess so the patient was admitted to the hospital for the Psoas muscle abscess. Started on the Zosyn and continued on the pain medication which was helping him and we did do the Lumbar spine MRI on April 26 which did show that there is a retropulsion of the endplate into the spinal canal causing the severe spinal canal stenosis and the astrocytoma L4 lesion. Talked to Dr. Lutz at [facility]. The patient is moving with his legs and was ambulatory in the wheelchair with his legs. There is some sensation decrease, 2+ leg edema is present which was discussed with Dr. Lutz and he was courteous enough to accept the patient and the patient being transferred to the [facility]. TIME SPENT: MORE THAN 65 MINUTES MTDD
== END 2018-04-27 14:40 | disposition short-term general hospital (02) | DRG 555 ==
LOC: ED 08:08 → MEDSURG B 10:27
PROVIDERS: ADMIT Emergency Medicine; ATTEND Emergency Medicine
DX: M25.552 Pain in left hip (principal); S34.114A Complete lesion of L4 level of lumbar spinal cord, initial encounter; K68.12 Psoas muscle abscess; C90.30 Solitary plasmacytoma not having achieved remission; C41.2 Malignant neoplasm of vertebral column; M48.56XA Collapsed vertebra, not elsewhere classified, lumbar region, initial encounter for fracture; E11.65 Type 2 diabetes mellitus with hyperglycemia; J44.9 Chronic obstructive pulmonary disease, unspecified; I25.10 Atherosclerotic heart disease of native coronary artery without angina pectoris; M19.90 Unspecified osteoarthritis, unspecified site; M54.5 Low back pain; M47.9 Spondylosis, unspecified; M48.00 Spinal stenosis, site unspecified; R20.0 Anesthesia of skin; R53.1 Weakness; R60.9 Edema, unspecified; G47.30 Sleep apnea, unspecified; K21.9 Gastro-esophageal reflux disease without esophagitis; F41.8 Other specified anxiety disorders; F41.9 Anxiety disorder, unspecified; Z72.0 Tobacco use; Z79.4 Long term (current) use of insulin; Z85.830 Personal history of malignant neoplasm of bone
CPT/HCPCS: 36415; 80053; 80306; 81001; 82962; 83036; 83605; 85025; 85651; 87040; 96374; 99283

== ENCOUNTER 2018-04-27 14:46 | Outpatient (CLI) | END 2018-04-27 14:47 | disposition home or self-care (01) | LOC: AMBL 14:46 | PROVIDERS: ATTEND Emergency Medicine | DX: M54.5 Low back pain (principal); Z85.830 Personal history of malignant neoplasm of bone ==

== ENCOUNTER 2018-06-02 09:50 | Outpatient (CLI) | END 2018-06-02 09:51 | disposition home or self-care (01) | LOC: LAB 09:50 | PROVIDERS: ATTEND General Practice | DX: E78.5 Hyperlipidemia, unspecified (principal); E11.9 Type 2 diabetes mellitus without complications; I25.10 Atherosclerotic heart disease of native coronary artery without angina pectoris | CPT/HCPCS: 36415; 80053; 80061; 83036; 84443; 85025 ==

== ENCOUNTER 2018-06-10 18:05 | Emergency (ER) ==
[2018-06-10 18:15] VITALS: BP 108/68; TEMP 99.2; BMI 37.0
--- NOTE | 2018-06-10 18:38 | ED.PDOC ---
General ED Provider: Dr. SUSAN TOM-ER Chief Complaint: Non-specific Complaint Stated Complaint: bina had this lump on my chest for 4 years--now its red for the past 2 days--no fever or chills Time Seen by Physician: 18:37 Mode of Arrival: Wheelchair Information Source: Patient Exam Limitations: No limitations [facility] Nursing and Triage Documentation Reviewed and Agree: No (prsent for 4 years) Does patient meet sepsis criteria?: No System Inflammatory Response Syndrome: Not Applicable Sepsis Protocol: For patient's 13 years and over: Temp is 96.8 and below OR 101 and greater Pulse >90 BPM Resp >20/minute Acutely Altered Mental Status Are patient's symptoms suggestive of a new infection, such as: -Pneumonia -Skin, Soft Tissue -Endocarditis -UTI -Bone, Joint Infection -Implantable Device -Acute Abdominal Infection -Wound Infection -Meningitis -Blood Stream Catheter Infection -Unknown Skin Complaint Exam - Skin/Soft Tissue Complaint/Exam Onset/Duration: 4 years Symptoms Are: Still present Timing: Constant Initial Severity: Mild Current Severity: Mild Location: anterior sternum Character: Reports: Redness, Swelling, Raised, Painful Alleviating: Reports: None Associated Signs and Symptoms: Reports: Tenderness. Denies: Fever, Chills, Itching, Drainage, Bruising Related History: Reports: Immunocompromised Recent Exposure to Others w/Similar Symptoms: No Skin Findings: Present: Erythema, Fluctuant mass Joint Tenderness Present: No Differential Diagnoses: Abscess, Other Review of Systems - Review Of Systems Constitutional: Reports: No symptoms Eyes: Reports: No symptoms Ears, Nose, Mouth, Throat: Reports: No symptoms Respiratory: Reports: No symptoms Cardiac: Reports: No symptoms GI: Reports: No symptoms : Reports: No symptoms Musculoskeletal: Reports: No symptoms Skin: Reports: Lumps Neurological: Reports: No symptoms Endocrine: Reports: No symptoms Hematologic/Lymphatic: Reports: No symptoms All Other Systems: Reviewed and Negative Past Medical History - Past Medical History Previously Healthy: No Endocrine: Reports: DM 2 Cardiovascular: Reports: [place], Hypertension Respiratory: Reports: COPD Hematological: Reports: None Gastrointestinal: Reports: None Genitourinary: Reports: None Neuro/Psych: Reports: Anxiety Musculoskeletal: Reports: Arthritis, Back Pain Cancer: 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) - Surgical History General Surgical History: Reports: CABG - Family History Family History: Reports: Diabetes - Social History Smoking Status: Current every day smoker, Heavy tobacco smoker Hx Substance Use: No (on methadone) Alcohol Screening: None Physical Exam - Physical Exam Appearance: Well-appearing, No pain distress, Well-nourished Pain Distress: Mild Eyes: OBDULIO, EOMI, Conjunctiva clear ENT: Ears normal, Nose normal, Oropharynx normal Neck: Supple Respiratory: Airway patent, Breath sounds clear, Breath sounds equal, Respirations nonlabored Cardiovascular: RRR, Pulses normal, No rub, No murmur GI/: Soft, Nontender, No masses, Bowel sounds normal, No Organomegaly Musculoskeletal: Normal strength Skin: Warm (exam does confirm wesley cyst 3 with erythema around lateral edge), Dry , Normal color Neurological: Sensation intact, Motor intact, Reflexes intact, Cranial nerves intact, Alert, Oriented Psychiatric: Affect appropriate, Mood appropriate Critical Care Note - Critical Care Note Total Time (mins): 0 Course - Course Vital Signs: Temp Pulse Resp BP Pulse Ox 06/10/18 18:07 99.2 F 85 20 108/68 95 Departure - Departure Time of Disposition: 18:39 Disposition: HOME SELF-CARE Discharge Problem: Inflamed sebaceous cyst Instructions: Epidermal Inclusion Cysts (ED) Condition: Good Pt referred to PMD for follow-up: Yes IPMP verified?: No Additional Instructions: minocin 100mg bid x 14 days--warm compresses--see your pcp about seeing surgeon for excision Allergies/Adverse Reactions: Allergies codeine Adverse Reaction (Verified 06/10/18 18:16) Hives fentanyl Adverse Reaction (Verified 06/10/18 18:16) Hives Home Medications: Ambulatory Orders Isosorbide Mononitrate [Imdur] 30 mg PO DAILY 12/30/16 Omeprazole Magnesium [Prilosec Otc] 20 mg PO DAILY 12/30/16 Methadone HCl [Methadone] 40 mg pe PO TID 11/27/17 Aspirin [Aspir-Low] 81 mg PO DAILY 01/02/18 Atorvastatin Calcium 10 mg PO BEDTIME 01/02/18 Furosemide [Lasix] 40 mg PO DAILY PRN 01/02/18 Gabapentin 900 mg PO TID 01/02/18 Insulin Glargine,Hum.rec.anlog [Lantus] 50 units SUBCUT BEDTIME 01/02/18 Lisinopril [Zestril] 5 mg PO DAILY 04/24/18 Disposition Discussed With: Patient, Family
== END 2018-06-10 18:47 | disposition home or self-care (01) ==
LOC: ED 18:05
DX: L72.3 Sebaceous cyst (principal); F17.210 Nicotine dependence, cigarettes, uncomplicated
CPT/HCPCS: 99282

== ENCOUNTER 2018-08-05 19:15 | Emergency (ER) ==
[2018-08-05 19:19] VITALS: BMI 36.6
[2018-08-05] MEDS ORDERED: DECADRON 4 MG/ML SDV IM STA (19:54)
[2018-08-05] MEDS ORDERED: DILAUDID 1 MG/ML SYRINGE IM STA (19:54)
--- NOTE | 2018-08-05 19:58 | ED.PDOC ---
General ED Provider: Dr. CARLOS HATCH Chief Complaint: Hip Pain/Injury Stated Complaint: Patient states that he has bone cancer with chronic severe pain. He take methdone for pain but is out of percocet for break through medicaitons since his PCP is out of town. He states that his pain is severe mostly on the right hip. lana with weight bearing Time Seen by Physician: 19:30 Mode of Arrival: Walk-In Information Source: Patient Primary Care Provider: TREVA [facility]WELL[facility] Nursing and Triage Documentation Reviewed and Agree: Yes Does patient meet sepsis criteria?: No System Inflammatory Response Syndrome: Not Applicable Sepsis Protocol: For patient's 13 years and over: Temp is 96.8 and below OR 101 and greater Pulse >90 BPM Resp >20/minute Acutely Altered Mental Status Are patient's symptoms suggestive of a new infection, such as: -Pneumonia -Skin, Soft Tissue -Endocarditis -UTI -Bone, Joint Infection -Implantable Device -Acute Abdominal Infection -Wound Infection -Meningitis -Blood Stream Catheter Infection -Unknown Review of Systems - Review Of Systems Constitutional: Reports: No symptoms Eyes: Reports: No symptoms Ears, Nose, Mouth, Throat: Reports: No symptoms Respiratory: Reports: No symptoms Cardiac: Reports: No symptoms GI: Reports: No symptoms : Reports: No symptoms Musculoskeletal: Reports: Back pain, Joint pain, Muscle pain Skin: Reports: No symptoms Neurological: Reports: Anxiety Endocrine: Reports: No symptoms Hematologic/Lymphatic: Reports: No symptoms All Other Systems: Reviewed and Negative Past Medical History - Past Medical History Previously Healthy: No Endocrine: Reports: DM 2 Cardiovascular: Reports: [place], Hypertension Respiratory: Reports: COPD Hematological: Reports: None Gastrointestinal: Reports: None Genitourinary: Reports: None Neuro/Psych: Reports: Anxiety Musculoskeletal: Reports: Arthritis, Back Pain Cancer: 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) - Surgical History General Surgical History: Reports: CABG - Family History Family History: Reports: Diabetes - Social History Smoking Status: Current every day smoker, Heavy tobacco smoker Hx Substance Use: No (on methadone) Alcohol Screening: None - Immunizations Tetanus Shot up to Date: No Physical Exam - Physical Exam Appearance: Ill-appearing, Obese Ill-appearing: Mild Pain Distress: Severe Neck: Supple Respiratory: Airway patent, Breath sounds clear, Breath sounds equal, Respirations nonlabored Cardiovascular: RRR, Pulses normal, No rub, No murmur GI/: Soft, Nontender, No masses, Bowel sounds normal, No Organomegaly Musculoskeletal: Limited ROM Neurological: Alert, Oriented Psychiatric: Anxious Re-Evaluation - Re-Evaluation Time of Re-Evaluation: 20:49 Status: Improved Vital Signs Stable: Yes Pain Level: much improved. Critical Care Note - Critical Care Note Total Time (mins): 0 Course - Course Orders, Labs, Meds: Orders Category Date Time Status Dexamethasone 4 mg/ml Inj [Decadron 4 mg/ml Sdv] MEDS 08/05/18 20:17 Discontinued 4 mg .ROUTE .STK-MED ONE Dexamethasone 4 mg/ml Inj [Decadron 4 mg/ml Sdv] MEDS 08/05/18 19:54 Discontinued 8 mg IM ONCE STA Hydromorphone HCl [Dilaudid 1 mg/ml Syringe] MEDS 08/05/18 19:54 Discontinued 1 mg IM ONCE STA Medications Discontinued Medications Generic Name Dose Route Start Last Admin Trade Name Freq PRN Reason Stop Dose Admin Dexamethasone Sodium Phosphate 8 mg 08/05/18 19:54 08/05/18 20:15 Decadron 4 Mg/Ml Sdv IM 08/05/18 19:55 8 mg ONCE STA Administration Hydromorphone HCl 1 mg 08/05/18 19:54 08/05/18 20:15 Dilaudid 1 Mg/Ml Syringe IM 08/05/18 19:55 1 mg ONCE STA Administration Vital Signs: Temp Pulse Resp BP Pulse Ox 08/05/18 20:45 97.9 F 90 20 145/72 H 94 L 08/05/18 19:15 98.5 F 102 H 18 160/88 H 95 Departure - Departure Time of Disposition: 20:48 Disposition: HOME SELF-CARE Discharge Problem: Hip pain, Plasmacytoma of bone Instructions: Arthralgia (ED), Hip Pain (ED) Condition: Fair Pt referred to PMD for follow-up: Yes IPMP verified?: Yes Additional Instructions: Follow up with PCP in 3 days Take Medications as prescribed Prescriptions: Oxycodone-Acetaminophen 5-325 [Percocet 5-325] 1 tab PO Q6H PRN #20 tablet PRN Reason: severe pain Breakthrough Allergies/Adverse Reactions: Allergies codeine Adverse Reaction (Unverified 08/05/18 19:19) Hives fentanyl Adverse Reaction (Unverified 08/05/18 19:19) Hives Home Medications: Ambulatory Orders Isosorbide Mononitrate [Imdur] 30 mg PO DAILY 12/30/16 Omeprazole Magnesium [Prilosec Otc] 20 mg PO DAILY 12/30/16 Methadone HCl [Methadone] 40 mg pe PO TID 11/27/17 Aspirin [Aspir-Low] 81 mg PO DAILY 01/02/18 Atorvastatin Calcium 10 mg PO BEDTIME 01/02/18 Furosemide [Lasix] 40 mg PO DAILY PRN 01/02/18 Lisinopril [Zestril] 5 mg PO DAILY 04/24/18 Oxycodone-Acetaminophen 5-325 [Percocet 5-325] 1 tab PO Q6H PRN #20 tablet 08/05
[2018-08-05] MEDS ORDERED: DECADRON 4 MG/ML SDV ONE (20:17)
[2018-08-05 20:49] VITALS: BP 145/72; TEMP 97.9
== END 2018-08-05 21:05 | disposition home or self-care (01) ==
LOC: ED 19:15
DX: M25.551 Pain in right hip (principal); C90.30 Solitary plasmacytoma not having achieved remission; G89.29 Other chronic pain; F17.210 Nicotine dependence, cigarettes, uncomplicated
CPT/HCPCS: 96372; 99282

== ENCOUNTER 2018-09-30 14:31 | Emergency (ER) ==
[2018-09-30 14:38] VITALS: BP 103/65; TEMP 99.5; BMI 30.1
--- NOTE | 2018-09-30 16:17 | ED.PDOC ---
General ED Provider: Dr. TOBY MARIO Chief Complaint: Hip Pain/Injury Stated Complaint: fall last night right hip pain no ther associated injury Time Seen by Physician: 14:33 (seen with nursing staff at all times ) Mode of Arrival: Wheelchair Information Source: Patient Exam Limitations: No limitations [facility] and Triage Documentation Reviewed and Agree: Yes Does patient meet sepsis criteria?: No System Inflammatory Response Syndrome: Not Applicable Sepsis Protocol: For patient's 13 years and over: Temp is 96.8 and below OR 101 and greater Pulse >90 BPM Resp >20/minute Acutely Altered Mental Status Are patient's symptoms suggestive of a new infection, such as: -Pneumonia -Skin, Soft Tissue -Endocarditis -UTI -Bone, Joint Infection -Implantable Device -Acute Abdominal Infection -Wound Infection -Meningitis -Blood Stream Catheter Infection -Unknown Musculoskeletal Complaint Exam - Hip/Pelvis Complaint/Exam Location of Pain: Reports: Right, Hip Mechanism of Injury: Reports: Trauma (fall last night ) Onset/Duration: 1 day Symptoms Are: Still present Initial Severity: Mild Current Severity: Mild Location: Reports: Discrete Character: Reports: Aching Aggravating: Reports: Movement Alleviating: Reports: Rest Associated Signs and Symptoms: Denies: Swelling, Redness, Bruising, Fever, Weakness, Dizziness, Syncope, Abdominal pain, Knee pain Related History: Reports: Similar episode Septic Arthritis Risk Factors: Reports: None Related Surgical History: Reports: None Pelvis Palpation: Stable Tenderness: Present: Right Range of Motion Limited In: Present: Flexion, Extension, Abduction, Adduction, Internal rotation, External rotation Differential Diagnoses: Arthritis, Fracture, Sprain, Strain Review of Systems - Review Of Systems Constitutional: Reports: No symptoms Eyes: Reports: No symptoms Ears, Nose, Mouth, Throat: Reports: No symptoms Respiratory: Reports: No symptoms Cardiac: Reports: No symptoms GI: Reports: No symptoms : Reports: No symptoms Musculoskeletal: Reports: Joint pain (right hip) Skin: Reports: No symptoms Neurological: Reports: No symptoms Endocrine: Reports: No symptoms Hematologic/Lymphatic: Reports: No symptoms All Other Systems: Reviewed and Negative Past Medical History - Past Medical History Previously Healthy: No Endocrine: Reports: DM 2 Cardiovascular: Reports: [place], Hypertension Respiratory: Reports: COPD Hematological: Reports: None Gastrointestinal: Reports: None Genitourinary: Reports: None Neuro/Psych: Reports: Anxiety Musculoskeletal: Reports: Arthritis, Back Pain Cancer: 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) - Surgical History General Surgical History: Reports: CABG - Family History Family History: Reports: Diabetes - Social History Smoking Status: Current every day smoker, Heavy tobacco smoker Hx Substance Use: No (on methadone) Alcohol Screening: None Physical Exam - Physical Exam Appearance: Well-appearing, No pain distress, Well-nourished Eyes: OBDULIO, EOMI, Conjunctiva clear ENT: Ears normal, Nose normal, Oropharynx normal Respiratory: Airway patent, Breath sounds clear, Breath sounds equal, Respirations nonlabored Cardiovascular: RRR, Pulses normal, No rub, No murmur GI/: Soft, Nontender, No masses, Bowel sounds normal, No Organomegaly Musculoskeletal: Normal strength, ROM intact, No edema, No calf tenderness Skin: Warm, Dry, Normal color Neurological: Sensation intact, Motor intact, Reflexes intact, Cranial nerves intact, Alert, Oriented Psychiatric: Affect appropriate, Mood appropriate Critical Care Note - Critical Care Note Total Time (mins): 0 Course - Course Orders, Labs, Meds: Orders Category Date Time Status CT PELVIS W/O CONTRAST Stat RADS 09/30/18 15:21 Taken Vital Signs: Temp Pulse Resp BP Pulse Ox 09/30/18 14:32 99.5 F 83 20 103/65 93 L Departure - Departure Time of Disposition: 17:00 Disposition: HOME SELF-CARE Discharge Problem: Hip pain Instructions: Hip Pain (ED), Arthralgia (ED) Condition: Good Pt referred to PMD for follow-up: Yes IPMP verified?: No Additional Instructions: Please call your Family Physician as soon as possible to schedule a follow-up appointment. Allergies/Adverse Reactions: Allergies codeine Adverse Reaction (Verified 09/30/18 14:38) Hives fentanyl Adverse Reaction (Verified 09/30/18 14:38) Hives Home Medications: Ambulatory Orders Omeprazole Magnesium [Prilosec Otc] 20 mg PO DAILY 12/30/16 Methadone HCl [Methadone] 40 mg pe PO TID 11/27/17 Aspirin [Aspir-Low] 81 mg PO DAILY 01/02/18 Atorvastatin Calcium 10 mg PO BEDTIME 01/02/18 Furosemide [Lasix] 40 mg PO DAILY PRN 01/02/18 Insulin Glargine,Hum.rec.anlog [Lantus] 50 unit SQ BEDTIME 08/24/18
--- NOTE | 2018-09-30 16:17 | CT ---
Exam: CT of the pelvis without intravenous contrast. Comparison: CT pelvis performed 04/24/2018. Reason for exam: Right pain after fall. FINDINGS: No acute fracture or malalignment is seen within the pelvic ring. Degenerative findings a re seen in both hips. There is healing and fracturing seen around the inferior-most pedicle screws i n the L5 vertebral body consistent with periprosthetic fracture of hardware loosening. Atherosclerot ic disease is seen within the aorta and distal arterial vasculature. There is a fat containing periumbilical hernia. The bladder appears grossly unremarkable. Impression: 1. No acute fracture or malalignment is seen within the pelvic ring. 2. Healing and fracturing adjacent to the L5 pedicle screws consistent with periprosthetic loosening and fracture. This finding appears more prominent on today's exam when compared to CT imaging of th e lumbar spine performed on 08/24/2018. If clinical concern exists, CT examination of the lumbar spi ne could be performed for further characterization.
== END 2018-09-30 16:39 | disposition home or self-care (01) ==
LOC: ED 14:31
DX: M25.551 Pain in right hip (principal); W19.XXXA Unspecified fall, initial encounter; F17.210 Nicotine dependence, cigarettes, uncomplicated
CPT/HCPCS: 99282

== ENCOUNTER 2018-11-19 12:07 | Outpatient (CLI) | payer OTHER | END 2018-11-19 12:08 | disposition home or self-care (01) | LOC: RHC-LAB 12:07 | PROVIDERS: ATTEND General Practice | DX: E78.5 Hyperlipidemia, unspecified (principal); E66.9 Obesity, unspecified; C90.30 Solitary plasmacytoma not having achieved remission; E11.8 Type 2 diabetes mellitus with unspecified complications | CPT/HCPCS: 36415; 80053; 83036; 83880; 85025 ==

== ENCOUNTER 2018-12-14 01:51 | Emergency (ER) ==
[2018-12-14 02:14] VITALS: BP 136/76; TEMP 97.1; BMI 35.6
[2018-12-14] MEDS ORDERED: SODIUM CHLORIDE 1,000 ML IV STA (02:20)
[2018-12-14] MEDS ORDERED: ZOFRAN 4 MG/2 ML IVP STA (02:20)
[2018-12-14] MEDS ORDERED: PROTONIX IV IVP STA (02:20)
--- NOTE | 2018-12-14 02:20 | ED.PDOC ---
General ED Provider: Dr. CARLOS HATCH Chief Complaint: Non-specific Complaint Stated Complaint: Patient is a 58 year old male who comes to ER per ambulance. with weakness, nausea and vomiting for one fidel. States he has cancer in his bones but has not seen his cancer doctor in a while. Time Seen by Physician: 02:17 Mode of Arrival: Ambulance Information Source: Patient, EMT Exam Limitations: No limitations [facility] and T[facility] Documentation Reviewed and Agree: Yes Does patient meet sepsis criteria?: No System Inflammatory Response Syndrome: Not Applicable Sepsis Protocol: For patient's 13 years and over: Temp is 96.8 and below OR 101 and greater Pulse >90 BPM Resp >20/minute Acutely Altered Mental Status Are patient's symptoms suggestive of a new infection, such as: -Pneumonia -Skin, Soft Tissue -Endocarditis -UTI -Bone, Joint Infection -Implantable Device -Acute Abdominal Infection -Wound Infection -Meningitis -Blood Stream Catheter Infection -Unknown Review of Systems - Review Of Systems Constitutional: Reports: No symptoms Eyes: Reports: No symptoms Ears, Nose, Mouth, Throat: Reports: No symptoms Respiratory: Reports: No symptoms Cardiac: Reports: No symptoms GI: Reports: Abdominal pain, Nausea, Poor appetite, Vomiting : Reports: No symptoms Musculoskeletal: Reports: Back pain, Muscle pain Skin: Reports: No symptoms Neurological: Reports: No symptoms Endocrine: Reports: No symptoms Hematologic/Lymphatic: Reports: No symptoms All Other Systems: Reviewed and Negative Past Medical History - Past Medical History Previously Healthy: No Endocrine: Reports: DM 2 Cardiovascular: Reports: [place], Hypertension Respiratory: Reports: COPD Hematological: Reports: None Gastrointestinal: Reports: None Genitourinary: Reports: None Neuro/Psych: Reports: Anxiety Musculoskeletal: Reports: Arthritis, Back Pain Cancer: Reports: Other (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 ) - Surgical History General Surgical History: Reports: CABG - Family History Family History: Reports: Diabetes - Social History Smoking Status: Current every day smoker, Heavy tobacco smoker Hx Substance Use: No (on methadone) Alcohol Screening: None - Immunizations Tetanus Shot up to Date: Yes Physical Exam - Physical Exam Appearance: Ill-appearing, Obese Ill-appearing: Moderate Pain Distress: Severe Eyes: OBDULIO, EOMI, Conjunctiva clear Neck: Supple Respiratory: Airway patent, Breath sounds clear, Breath sounds equal, Respirations nonlabored Cardiovascular: Pulses normal, Tachycardia GI/: Soft, Tender (mild diffuse ) Musculoskeletal: Normal strength, ROM intact, No edema, No calf tenderness Skin: Warm, Dry, Normal color Neurological: Sensation intact, Motor intact, Cranial nerves intact, Alert, Oriented Psychiatric: Anxious Critical Care Note - Critical Care Note Total Time (mins): 35 Course - Course Hematology/Chemistry: 12/14/18 02:30 12/14/18 02:30 Orders, Labs, Meds: Lab Review 12/14/18 12/14/18 02:30 02:30 WBC 10.29 H RBC 5.15 Hgb 13.9 L Hct 40.5 L MCV 78.6 L MCH 27.0 MCHC 34.3 RDW Coeff of Honorio 14.6 Plt Count 285 Immature Gran % (Auto) 0.5 Neut % (Auto) 82.4 Lymph % (Auto) 11.1 [place] % (Auto) 5.1 Eos % (Auto) 0.5 Baso % (Auto) 0.4 Immature Gran # (Auto) 0.1 Neut # (Auto) 8.5 H Lymph # (Auto) 1.1 [place] # (Auto) 0.5 Eos # (Auto) 0.1 Baso # (Auto) 0.0 Sodium 126.4 L Potassium 4.33 Chloride 93.7 L Carbon Dioxide 21.0 L Anion Gap 16.03 BUN 22.8 H Creatinine 0.81 Estimated GFR (MDRD) 98.00 BUN/Creatinine Ratio 28.14 Glucose 361.9 H Calcium 8.32 L Total Bilirubin 0.67 AST 9.6 L ALT 10.0 Alkaline Phosphatase 101.3 Total Protein 6.53 Albumin 3.61 Globulin 2.92 Albumin/Globulin Ratio 1.23 Amylase 36.9 Lipase 42.3 Orders Category Date Time Status ED IV/MEDIPORT/POWERPORT .ONCE EMERGENCY 12/14/18 02:20 Active AMYLASE Stat LAB 12/14/18 02:30 Completed CBC W/ AUTO DIFF Stat LAB 12/14/18 02:30 Completed COMPREHENSIVE METABOLIC PANEL Stat LAB 12/14/18 02:30 Completed LIPASE Stat LAB 12/14/18 02:30 Completed 0.9 % Sodium Chloride [Saline Flush] MEDS 12/14/18 02:20 Discontinued 1 syr IVF PRN PRN Hydromorphone HCl [Dilaudid 1 mg/ml Syringe] MEDS 12/14/18 02:33 Discontinued 1 mg IVP ONCE STA Ondansetron HCl/Pf [Zofran 4 mg/2 ml] MEDS 12/14/18 02:20 Discontinued 4 mg IVP ONCE STA Pantoprazole Sodium [Protonix IV] MEDS 12/14/18 02:20 Discontinued 40 mg IVP ONCE STA Sodium Chloride 0.9% [Sodium Chloride] 1,000 ml MEDS 12/14/18 02:[address] ABDOMEN/PELVIS WO CONTRAST Stat RADS 12/14/18 02:39 Completed Medications Discontinued Medications Generic Name Dose Route Start Last Admin Trade Name Freq PRN Reason Stop Dose Admin Hydromorphone HCl 1 mg 12/14/18 02:33 12/14/18 02:39 Dilaudid 1 Mg/Ml Syringe IVP 12/14/18 02:34 1 mg ONCE STA Administration Sodium Chloride 1,000 mls @ 1,000 mls/hr 12/14/18 02:20 12/14/18 02:37 Sodium Chloride IV 12/14/18 03:19 1,000 mls/hr BOLUS STA Administration Ondansetron HCl 4 mg 12/14/18 02:20 12/14/18 02:36 Zofran 4 Mg/2 Ml IVP 12/14/18 02:21 4 mg ONCE STA Administration Pantoprazole Sodium 40 mg 12/14/18 02:20 12/14/18 02:36 Protonix Iv IVP 12/14/18 02:21 40 mg ONCE STA Administration Sodium Chloride 1 syr 12/14/18 02:20 Saline Flush IVF PRN PRN To flush IV Vital Signs: Temp Pulse Resp BP Pulse Ox 12/14/18 01:53 97.1 F L 106 H 18 136/76 100 Departure - Departure Time of Disposition: 05:15 Disposition: HOME SELF-CARE Discharge Problem: Abdominal pain of unknown cause Instructions: Abdominal Pain (ED) Condition: Fair Pt referred to PMD for follow-up: Yes IPMP verified?: No Additional Instructions: Resume home pain medications Take nausea medications as needed Follow up with PCP in 3 days Prescriptions: Oxycodone-Acetaminophen 10-325 [Percocet 10-325] 1 tab PO Q12H #20 tablet Promethazine HCl [Phenergan Tab] 25 mg PO Q6H PRN #30 tablet PRN Reason: Nausea / Vomiting Allergies/Adverse Reactions: Allergies codeine Adverse Reaction (Verified 09/30/18 14:38) Hives fentanyl Adverse Reaction (Verified 09/30/18 14:38) Hives Home Medications: Ambulatory Orders Omeprazole Magnesium [Prilosec Otc] 20 mg PO DAILY 12/30/16 Methadone HCl [Methadone] 40 mg pe PO TID 11/27/17 Aspirin [Aspir-Low] 81 mg PO DAILY 01/02/18 Atorvastatin Calcium 10 mg PO BEDTIME 01/02/18 Insulin Glargine,Hum.rec.anlog [Lantus] 50 unit SQ BEDTIME 08/24/18 Oxycodone-Acetaminophen 10-325 [Percocet 10-325] 1 tab PO Q12H #20 tablet Promethazine HCl [Phenergan Tab] 25 mg PO Q6H PRN #30 tablet 12/14/18
[2018-12-14] MEDS ORDERED: DILAUDID 1 MG/ML SYRINGE IVP STA (02:33)
--- NOTE | 2018-12-14 03:23 | CT ---
EXAM: CT abdomen pelvis without intravenous contrast 12/14/2018. Sagittal and coronal reformatted i mages obtained HISTORY: Abdominal pain. Nausea vomiting COMPARISON: None. FINDINGS: The liver and gallbladder show no acute abnormality. The adrenal glands and kidneys show no acute abnormality. Low density lesions within both kidneys li madalyn due to cysts. The spleen shows no acute process. Benign granulomatous calcifications. Edema is present at the level of the pancreatic head. There is suggestion mucosal thickening of the duodenum with surrounding edema. These findings may represent pancreatitis and/or duodenitis. No fr ee air or free fluid. No evidence of small bowel obstruction. Unremarkable urinary bladder. No free air or free fluid. Air-fluid levels are present within the stomach, small bowel and colon. Gastroenteritis/diarrhea not excluded. Normal appendix. Postoperative changes of the lumbar spine. Chronic retropulsed bony fragment. No acute osseous abno rmality. IMPRESSION: 1. Edematous appearance at the level of the pancreatic head and duodenum. Mucosal thickening of the duodenum. These findings may represent pancreatitis and/or duodenitis. 2. Air-fluid levels throughout stomach, small bowel and colon. Gastroenteritis/diarrhea not exclude d. 3. No urinary or bowel obstruction and normal appendix. 4. Additional chronic and postoperative findings as above.
== END 2018-12-14 04:50 | disposition home or self-care (01) ==
LOC: ED 01:51
DX: R53.1 Weakness (principal); R11.2 Nausea with vomiting, unspecified; R10.9 Unspecified abdominal pain; R63.0 Anorexia; M54.9 Dorsalgia, unspecified
CPT/HCPCS: 36415; 80053; 82150; 83690; 85025; 96360; 96361; 96374; 96375; 99285

== ENCOUNTER 2018-12-14 05:10 | Outpatient (CLI) ==
[2018-12-14 02:14] VITALS: BMI 35.6
== END 2018-12-14 05:27 | disposition home or self-care (01) ==
LOC: AMBL 05:10
PROVIDERS: ATTEND Family Medicine
DX: Z99.3 Dependence on wheelchair (principal)

== ENCOUNTER 2018-12-30 12:59 | Observation (INO) ==
[2018-12-30 14:06] VITALS: BMI 37.8
[2018-12-30] MEDS ORDERED: LASIX TAB PO PRN (15:04)
[2018-12-30] MEDS ORDERED: PHENERGAN TAB PO PRN ×2 (15:10→16:07)
[2018-12-30] MEDS ORDERED: PRILOSEC PO STA ×2 (15:12→20:44)
[2018-12-30] MEDS ORDERED: IMDUR PO SCH (15:30)
[2018-12-30] MEDS ORDERED: ZESTRIL PO SCH (15:30)
[2018-12-30] MEDS ORDERED: NEURONTIN PO SCH (15:30)
[2018-12-30] MEDS ORDERED: METHADONE PO SCH (15:30)
[2018-12-30] MEDS ORDERED: NEURONTIN ONE ×2 (15:53)
--- NOTE | 2018-12-30 15:55 | DI ---
EXAM: Single view of the chest. History: Chronic obstructive pulmonary disease Comparison: Chest radiograph 02/25/2018, chest CT 08/24/2017 Findings: Heart is mildly enlarged. Sternotomy wires. No focal consolidation. No appreciable pleu ral fluid and no pneumothorax. Stable benign calcified granuloma within the right midlung. No acute osseous abnormalities. Postsurgical changes of the lumbar spine Impression: 1. Mild cardiomegaly without acute disease in the chest. 2. Stable benign calcified granuloma within the right lung.
[2018-12-30] MEDS ORDERED: ASPIRIN EC PO SCH (16:00)
[2018-12-30] MEDS ORDERED: NON-FORMULARY MEDICATION (Omeprazole Magnesium [Prilosec Otc] 20 MG) PO SCH (16:15)
[2018-12-30] MEDS ORDERED: INSULIN LISPRO 12 UNIT SQ SCH (16:15)
[2018-12-30] MEDS ORDERED: NON-FORMULARY MEDICATION (Gabapentin [Gabapentin] 800 MG) PO SCH (16:15)
[2018-12-30] MEDS: IMDUR PO SCH (16:29)
--- NOTE | 2018-12-30 16:32 | US ---
EXAM: ULTRASOUND LOWER EXTREMITY VENOUS DOPPLER EXAM HISTORY: Leg pain and swelling. FINDINGS: Bilateral lower extremity venous Doppler exam. Real time solomon-scale, Doppler spectral sunshine lysis and color-flow Doppler imaging performed. The veins targeted for evaluation include the common femoral, greater saphenous, profundus, femoral, popliteal, peroneal, anterior tibial and posterior t ibial. The left peroneal, posterior tibial and anterior tibial veins were not evaluated secondary to the pat ient's wish to terminate the examination. The evaluated veins demonstrated normal spontaneous flow a nd compression without evidence of thrombosis. IMPRESSION: 1. Incomplete exam as described in the last paragraph of the report. Most of the veins were evaluat ed and appeared normal.
[2018-12-30] MEDS ORDERED: METHADONE PO ONE (16:33)
[2018-12-30] MEDS: LASIX TAB PO SCH (17:26)
[2018-12-30] MEDS: ASPIRIN EC PO SCH (17:26)
[2018-12-30] MEDS ORDERED: HUMALOG SUBCUT SCH (17:30)
[2018-12-30] MEDS: ZESTRIL PO SCH (18:09)
[2018-12-30] MEDS: HUMALOG SUBCUT SCH (18:10)
[2018-12-30] MEDS ORDERED: METHADONE ONE (18:17)
[2018-12-30] MEDS: METHADONE PO SCH ×4 (18:21→23:40)
[2018-12-30] MEDS: LIPITOR PO SCH (20:41)
[2018-12-30] MEDS: LANTUS SUBCUT SCH (20:43)
[2018-12-30] MEDS: NEURONTIN PO SCH ×2 (20:43)
[2018-12-30] MEDS ORDERED: LIPITOR PO SCH (21:00)
[2018-12-30] MEDS ORDERED: LANTUS SUBCUT SCH (21:00)
[2018-12-31] MEDS: PRILOSEC PO SCH (05:49)
[2018-12-31] MEDS: LASIX TAB PO SCH (05:49)
[2018-12-31] MEDS: METHADONE PO SCH ×3 (05:49→21:42)
[2018-12-31] MEDS: IMDUR PO SCH (08:16)
[2018-12-31] MEDS: NEURONTIN PO SCH ×6 (08:16→21:43)
[2018-12-31] MEDS: ASPIRIN EC PO SCH (08:17)
[2018-12-31] MEDS: ZESTRIL PO SCH (08:17)
[2018-12-31] MEDS: HUMALOG SUBCUT SCH ×3 (08:18→16:56)
[2018-12-31] MEDS ORDERED: LANTUS SUBCUT ONE ×2 (21:00→21:39)
[2018-12-31] MEDS: LIPITOR PO SCH (21:44)
[2018-12-31] MEDS ORDERED: LANTUS SUBCUT STA (21:46)
[2018-12-31] MEDS: LANTUS SUBCUT SCH (22:23)
[2019-01-01] MEDS: LASIX TAB PO SCH (06:06)
[2019-01-01] MEDS: METHADONE PO SCH ×2 (06:06→12:42)
[2019-01-01] MEDS: PRILOSEC PO SCH (06:06)
[2019-01-01] MEDS: NEURONTIN PO SCH ×4 (08:53→14:28)
[2019-01-01] MEDS: ASPIRIN EC PO SCH (08:53)
[2019-01-01] MEDS: ZESTRIL PO SCH (08:53)
[2019-01-01] MEDS: HUMALOG SUBCUT SCH ×3 (08:54→17:24)
[2019-01-01] MEDS: IMDUR PO SCH (08:54)
[2019-01-01 14:15] VITALS: BP 113/54; TEMP 97.9
[2019-01-01] MEDS ORDERED: LANTUS SUBCUT SCH ×2 (21:00)
--- NOTE | 2019-01-03 10:37 | PN ---
DATE OF SERVICE: 12/31/18 SUBJECTIVE: The patient is alert and responsive. Seen today in the evening about 9:20pm. LUNGS: Clear to auscultation HEART: Normal sinus rhythm. The patient's sugar is high. The patient diet was mostly carbohydrates. This is diabetic diet and I need to talk to the sanitarian about what kind of diabetic diet these patient's are getting. I would like the patient to have more complex carbohydrates meaning vegetables rather than such as bread, cupcakes or other things related to carbs. This patient wonders in the room or in the hallway all the time. This patient came to the office specifically requesting going to the prison and now the patient does not want to go to the prison. I need to control his diabetes but this patient is noncompliant. He does not have any problems. He was continued on all his medications. Lantus insulin is increased to 60. Also getting Humalog 12 units SUBCUT three times a day, with meals. This patient has changed his mind and he will not go to the prison since [facility] is going to come to his house 7 days a week. I told him that I needed for somebody to test his sugar and also to give his food. The patient has significant medical problems and he doesn't comply with the instructions and doesn't seem to be serious about his illness. The patient indeed has a very significant medical problem. FENG
--- NOTE | 2019-01-06 11:48 | HP ---
DATE OF SERVICE: 12/30/18 CHIEF COMPLAINT: 1. Pain bilateral legs plus swelling. 2. Markedly uncontrolled blood sugar between 450 to 500. 3. Poor compliance. 4. Lumbar pain. SOURCE OF HISTORY: The patient. Reliability marginal. HISTORY OF PRESENT ILLNESS: The patient seems to treat his illness lightly and I don't know whether that is a coping mechanism for him. The patient was seen in the emergency room 12/14/18 because of severe back pain, hips and legs. He also had nausea and vomiting at that point. He even vomits his medication. The patient is doing better however the patient is complaining of pain in both legs as well as swelling. His blood sugar was markedly elevated, BUN 450. The patient was seen in the office . I advised him to have ultrasound of both lower extremities and blood testing. The patient however declines both as he does not have a ride to go to the hospital and also to go home if he will be sent home. He decided to go home on his own against medical advice and promised that he will come back tomorrow for admission for better control of diabetes as well as testing for pain in both of his legs and swelling. He was then admitted 12/30/18 at 2:35 p.m. 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 The patient had back surgery, lumbar in 2016 and another back surgery 06/22/18. Last lumbar surgery was for the plasmacytoma and stabilization of the spine with some retropulsion and also extension of the plasmacytoma to the soft tissue. FAMILY HISTORY: History of cancer on the paternal side, father was killed in a robbery. One sister is hypertensive and another sister had kidney disease. He had four sisters. Brother had carcinoma with heart disease. Also diabetes in the family as well as thyroid disease and stroke. SOCIAL HISTORY: The patient is single and has a friend named, Yoko Copeland. He lives by himself. Chronic tobacco use and abuse persistent. He denies any alcohol use or any substance abuse. MEDICATIONS: (HOME - PRIOR TO THIS ADMISSION) Omeprazole 20 mg daily Methadone 40 mg three times a day; Methadone comes in 10 as the highest tablet. He is not taking 80 three times a day. Lipitor 10 mg daily Aspirin 81 mg daily Lantus 50 units subcutaneously daily Lisinopril 5 mg tablet daily Isosorbide Mononitrate 30 mg tablet q.24 hours ER Humalog 12 units each meal Furosemide 40 mg tablet p.r.n. Phenergan 25 mg tablet q.6hr p.r.n. Gabapentin 800 mg tablet three times a day ALLERGIES: CODEINE AND FENTANYL REVIEW OF SYSTEMS: CONSTITUTIONAL: No fever no chills but has fatigue. MOBILE EQUIPMENT MECHANIC: Denies any significant headaches. He is wheelchair bound. No syncopal episode. No seizure events. VISUAL: Denies any double vision or blurred vision and/or transient loss of vision. AUDITORY: The patient's hearing is adequate. Denies any pain, drainage or tinnitus. RESPIRATORY: The patient has a cough but no history of hemoptysis. The patient is a chronic tobacco user. CARDIOVASCULAR: Denies any chest pain. This patient has a history of coronary artery disease with bypass in 2007. The patient is also hypertensive. GASTROINTESTINAL: The nausea and vomiting seems to have resolved and the patient is now able to eat 100% of snack on admission. Diarrhea. No blood in the stool. GENITOURINARY: The patient denies any pain on urination. No significant frequency. MUSCULOSKELETAL: The patient has weakness in both lower extremities. The patient has pain in the back secondary to plasmacytoma affecting the lumbar spine. The patient had recent surgery to stabilize the lumbar area with some retropulsion of the fracture fragments. INTEGUMENT: Denies any rash or pruritus. There are no spontaneous ecchymosis. ENDOCRINE: The patient has diabetes mellitus on insulin. He is noncompliant. The blood sugar is markedly elevated and his A1C is 11+. HEMATOLOGIC: No history of prolonged bleeding or spontaneous bleeding. The patient has history of anemia. PSYCHIATRIC: The patient is alert and oriented. He seemed to be joking, taking things lightly, probably a coping mechanim. I have not seen any relatives of his except his friend, Yoko. PHYSICAL EXAMINATION: GENERAL: 58-year-old male admitted to the hospital because of bilateral leg swelling with pain, uncontrolled diabetes blood sugar beyond 450. He had a recent episode of gastroenteritis requiring emergency room visit 12/14 and has resolved. The patient is in no acute distress. VITAL SIGNS: Temperature 98.5, pulse 85, blood pressure 102/59 left and 124/73 right, respiratory rate 16, oxygen saturation 95 on room air. Height 5'9", 255 lbs, 11 ozs. HEAD: Unremarkable. Scalp: No active dermatitis. Face is symmetrical and equal with no facial weakness. No redness. The patient denies any significant tenderness in the frontal or maxillary sinus areas to palpation and/or pressure. EYES: Pupils equal/reactive to light about 3 mm in size. Conjunctivae slightly pale. Sclerae not icteric. MOUTH: Unremarkable. THROAT: No inflammation, tumors or exudate. NECK: No masses. No bruit. No tenderness. CHEST: Essentially symmetrical and equal with good expansion. LUNGS: Breath sounds are heard on both sides. No rales or wheezing. HEART: Regular with good tones, no murmurs. ABDOMEN: Slightly protuberant, soft with no remarkable tenderness, no guarding. Bowel sounds are active. No masses palpable. EXTERNAL GENITALIA: Not examined. RECTAL: Not performed. LOWER EXTREMITIES: Edematous. Pedal pulses not palpable. UPPER EXTREMITIES: Symmetrical and equal. Vertebral column - the patient has scar in the lumbar spine from previous surgery times two. ASSESSMENT: 1. SWELLING BILATERAL LOWER EXTREMITY WITH PAIN, RULE OUT VENOUS THROMBOSIS. 2. MARKEDLY ELEVATED BLOOD SUGAR AND CONTROLLED DIABETES MELLITUS IN SPITE OF INSULIN. 3. LUMBAR PAIN ON METHADONE 40 MG THREE TIMES A DAY. 4. SOLITARY PLASMACYTOMA OF THE BONE INVOLVING THE LUMBAR SPINE AND SOFT TISSUE CONTIGUOUS TO LUMBAR SPINE. 5. CORONARY ARTERY DISEASE ESTABLISHED 1987, OPERATED 2007, BYPASS SURGERY. 6. HISTORY OF HYPERTENSION ON MEDICATION. 7. CHRONIC TOBACCO USE AND ABUSE, PERSISTENT. 8. DYSLIPIDEMIA. 9. ELEVATED BMI PERSISTENT. 10. COPD. 11. SLEEP APNEA. 12. HISTORY OF GERD. 13. HISTORY OF OSTEOARTHRITIS. 14. HISTORY OF DEGENERATIVE JOINT DISEASE SPINE. TIME SPENT: GREATER THAN 65 MINUTES MTDD
--- NOTE | 2019-01-07 13:19 | DS ---
DATE OF SERVICE: 01/01/19 PATIENT IDENTIFICATION: 58-year-old male with known diabetes mellitus on insulin admitted to the hospital because of swelling on both lower extremities with pain. Diabetes mellitus was uncontrolled. This patient also has a solitary plasmacytoma involving the lumbar spine and contiguous soft tissue. He had surgery recently on the back to stabilize the fractures on 06/2018. The patient is wheelchair bound. The patient is alert, oriented times four and does answer questions correctly. LUNGS: Clear. HEART: Normal sinus rhythm. ABDOMEN: No remarkable tenderness. LOWER EXTREMITIES: Both lower extremities have moderate edema. There is some tenderness to palpation on both extremities, mostly posterior. The patient, while in the hospital has negative Doppler studies of both lower extremities. No venous thrombosis. CBC showed moderate anemia. MCV and MCH borderline, maybe needing some iron. Glucose on admission was 273.4 and did go up to 451.1 the next day, fasting. Hemoglobin A1C was 11.77. The patient's NT-Pro-BNP is normal at 43.9. Urinalysis is unremarkable except for 2+ sugar. The insulin was increased. Lantus was 60 units in the evening instead of 50. The patient's Accu-Check has decreased to slightly above 200. I had talked to the patient with regards to his diet. I told him that he could not eat simple carbohydrates such as cake, sugar or soda. This patient drinks a whole lot of soda. I did advise him that his diet should consist mostly of vegetables as well as meat. He can probably have a potato but better if he would have oatmeal. A sweet potato is better than white potato if he wants to include a potato in his meals. The patient initially had mentioned his desire to go to the intermediate. He had not had any help at home. The patient was referred to groups who might be able to help him and [facility] did come and see him and told him that they will be there 7 days a week. I did again tell him that they are not going to be there throughout the day to look at his medications. His friend, Yoko, had visited him at the hospital. I don't know if he is counting on her help or she had told him that she is going to help him with his diabetes. He needs to have a regular diet, a diet without simple carbohydrates or any food that turns to sugar quickly such as wheat or any bread. The patient at time of discharge is alert, in his wheelchair. He seems to be more serious now than before. I did tell him that he needs to control the diabetes, that he need to eat regularly and also with the insulin since it would produce low blood sugar and low blood sugar is not helpful to his health. He already had a bypass surgery and a previous myocardial infarction. He is also advised to stop smoking and stop drinking any sodas. Most sodas have sodium and I don't know what kind of soda he is drinking. It would be juarez for him to just stop the soda and just drink water. I did tell him this. The patient is alert, oriented times four, not dyspneic or tachypneic at discharge. His vital signs at 2 p.m temperature 97.9, pulse 83, blood pressure 113/54, respiratory rate 20, oxygen saturation 95 on room air. I did see him about 6 p.m. His lungs were clear. Heart - normal sinus rhythm. Again, he appeared more serious this time and there is no facial weakness. He is to continue his medications except increase Lantus insulin to 60 units in the evening from 50. This patient was advised to see me January 10, 2019 or before if there is any concern. FINAL DIAGNOSES: 1. BILATERAL LOWER EXTREMITY EDEMA WITH PAIN WITHOUT ANY DVT. 2. DIABETES MELLITUS, ON INSULIN, UNCONTROLLED. 3. ELEVATED BMI. 4. CHRONIC TOBACCO USE AND ABUSE PERSISTENT. 5. HISTORY OF COPD. 6. HISTORY OF OBSTRUCTIVE SLEEP APNEA. 7. HISTORY OF HYPERTENSION ON MEDICATION, CONTROLLED. 8. CHRONIC LUMBAR PAIN, SEVERE ON METHADONE. 9. SOLITARY PLASMACYTOMA AFFECTING THE LUMBAR SPINE WITH SOFT TISSUE INVOLVEMENT. 10. HISTORY OF GERD. 11. HISTORY OF OSTEOARTHRITIS. 12. HISTORY OF DEPRESSION. PROGNOSIS: GUARDED. TIME SPENT: GREATER THAN 30 MINUTES MTDD
== END 2019-01-01 18:13 | disposition home or self-care (01) ==
LOC: MEDSURG B 12:59 → INTOOBSV 12:59
PROVIDERS: ADMIT General Practice; ATTEND General Practice
DX: R60.0 Localized edema (principal); E11.65 Type 2 diabetes mellitus with hyperglycemia; M54.5 Low back pain; M79.662 Pain in left lower leg; M79.661 Pain in right lower leg; Z79.4 Long term (current) use of insulin; Z72.0 Tobacco use; J44.9 Chronic obstructive pulmonary disease, unspecified; G47.30 Sleep apnea, unspecified; I10 Essential (primary) hypertension; K21.9 Gastro-esophageal reflux disease without esophagitis; M19.90 Unspecified osteoarthritis, unspecified site; F32.9 Major depressive disorder, single episode, unspecified; Z91.19 Patient's noncompliance with other medical treatment and regimen
CPT/HCPCS: 36415; 80053; 81001; 82947; 82962; 83036; 83880; 85025; 97802

== ENCOUNTER 2019-01-15 22:07 | Emergency (ER) | payer OTHER ==
[2019-01-15 22:10] VITALS: BP 141/81; TEMP 97.7; BMI 36.1
[2019-01-15] MEDS ORDERED: SOMA PO STA (22:29)
[2019-01-15] MEDS ORDERED: TORADOL IM STA (22:29)
--- NOTE | 2019-01-15 23:02 | DI ---
EXAM: Two-view right hip. HISTORY: Fall. FINDINGS: The bones are intact with no evidence of fracture. The joint spaces are maintained. No so ft tissue abnormality. Impression: Negative right hip.
--- NOTE | 2019-01-15 23:40 | ED.PDOC ---
General ED Provider: Dr. SUSAN DUMONT MD Chief Complaint: Back Pain Stated Complaint: i fell at home, butt pain Time Seen by Physician: 22:22 Mode of Arrival: Wheelchair Information Source: Patient, Other Exam Limitations: No limitations [facility] and Triage Documentation Reviewed and Agree: Yes Does patient meet sepsis criteria?: No If yes, has appropriate treatment been initiated?: Yes System Inflammatory Response Syndrome: Not Applicable Sepsis Protocol: For patient's 13 years and over: Temp is 96.8 and below OR 101 and greater Pulse >90 BPM Resp >20/minute Acutely Altered Mental Status Are patient's symptoms suggestive of a new infection, such as: -Pneumonia -Skin, Soft Tissue -Endocarditis -UTI -Bone, Joint Infection -Implantable Device -Acute Abdominal Infection -Wound Infection -Meningitis -Blood Stream Catheter Infection -Unknown Review of Systems - Review Of Systems Constitutional: Reports: No symptoms Eyes: Reports: No symptoms Ears, Nose, Mouth, Throat: Reports: No symptoms Respiratory: Reports: No symptoms Cardiac: Reports: No symptoms GI: Reports: No symptoms : Reports: No symptoms Musculoskeletal: Reports: Back pain (chronic, takes methadone prn) Skin: Reports: No symptoms Neurological: Reports: No symptoms Endocrine: Reports: No symptoms Hematologic/Lymphatic: Reports: No symptoms All Other Systems: Reviewed and Negative Past Medical History - Past Medical History Previously Healthy: No Endocrine: Reports: DM 2 Cardiovascular: Reports: MT, Hypertension Respiratory: Reports: COPD Hematological: Reports: None Gastrointestinal: Reports: None Genitourinary: Reports: None Neuro/Psych: Reports: Anxiety Musculoskeletal: Reports: Arthritis, Back Pain Cancer: Reports: Other (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 ) - Surgical History General Surgical History: Reports: CABG - Family History Family History: Reports: Diabetes - Social History Smoking Status: Current every day smoker, Heavy tobacco smoker Hx Substance Use: No (on methadone for back pain) Alcohol Screening: None - Immunizations Tetanus Shot up to Date: Yes Physical Exam - Physical Exam Appearance: Obese Pain Distress: Mild Eyes: OBDULIO, EOMI, Conjunctiva clear ENT: Ears normal, Nose normal, Oropharynx normal Respiratory: Airway patent, Breath sounds clear, Breath sounds equal, Respirations nonlabored Cardiovascular: RRR, Pulses normal, No rub, No murmur GI/: Soft, Nontender, No masses, Bowel sounds normal, No Organomegaly Musculoskeletal: Limited ROM Skin: Warm, Dry, Normal color Neurological: Sensation intact, Motor intact, Reflexes intact, Cranial nerves intact, Alert, Oriented Psychiatric: Affect appropriate, Mood appropriate Critical Care Note - Critical Care Note Total Time (mins): 0 Course - Course Vital Signs: Temp Pulse Resp BP Pulse Ox 01/15/19 22:07 97.7 F 78 18 141/81 H 98 Departure - Departure Time of Disposition: 23:45 Disposition: HOME SELF-CARE Discharge Problem: Chronic lower back pain Qualifiers: Back pain laterality: right Sciatica presence: without sciatica Qualified Code( s): M54.5 - Low back pain; G89.29 - Other chronic pain Condition: Good Pt referred to PMD for follow-up: Yes IPMP verified?: No Allergies/Adverse Reactions: Allergies codeine Adverse Reaction (Verified 01/15/19 22:10) Hives fentanyl Adverse Reaction (Verified 01/15/19 22:10) Hives Home Medications: Ambulatory Orders Omeprazole Magnesium [Prilosec Otc] 20 mg PO DAILY 12/30/16 Methadone HCl [Methadone] 80 mg pe PO TID 11/27/17 Aspirin [Aspir-Low] 81 mg PO DAILY 01/02/18 Atorvastatin Calcium 10 mg PO BEDTIME 01/02/18 Promethazine HCl [Phenergan Tab] 25 mg PO Q6H PRN #30 tablet 12/14/18 Insulin Glargine,Hum.rec.anlog [Lantus] 60 unit SUBCUT BEDTIME #1 unit 01/01/19
== END 2019-01-15 23:45 | disposition home or self-care (01) ==
LOC: ED 22:07
DX: M54.5 Low back pain (principal); G89.29 Other chronic pain; W19.XXXA Unspecified fall, initial encounter; F17.210 Nicotine dependence, cigarettes, uncomplicated
CPT/HCPCS: 96372; 99282

== ENCOUNTER 2019-01-26 11:31 | Emergency (ER) ==
[2019-01-26 11:36] VITALS: BP 146/75; TEMP 97.5; BMI 36.6
--- NOTE | 2019-01-26 11:54 | ED.PDOC ---
General ED Provider: Dr. TOBY MARIO Chief Complaint: Diabetes Stated Complaint: pt reports of high blood sugar as out pt. this morning arrives AOX3 with no discomfort reporting blood sugar Time Seen by Physician: 11:34 (SEEN WITH THE PT'S NURSE AT ALL TIME DENIED CHEST PAIN AND OTHER ASSOCIATED ISSUES ) Mode of Arrival: Wheelchair Information Source: Patient Exam Limitations: No limitations [facility] T[facility] Documentation Reviewed and Agree: Yes Does patient meet sepsis criteria?: No System Inflammatory Response Syndrome: Not Applicable Sepsis Protocol: For patient's 13 years and over: Temp is 96.8 and below OR 101 and greater Pulse >90 BPM Resp >20/minute Acutely Altered Mental Status Are patient's symptoms suggestive of a new infection, such as: -Pneumonia -Skin, Soft Tissue -Endocarditis -UTI -Bone, Joint Infection -Implantable Device -Acute Abdominal Infection -Wound Infection -Meningitis -Blood Stream Catheter Infection -Unknown Endocrine Complaint Exam - Diabetic Complication Complaint/Exam Onset/Duration: chronic issue denied L.O.C Symptoms Are: Still present Timing: Intermittent Initial Severity: Mild Current Severity: None Character: Alert Aggravating: Reports: None Alleviating: Reports: None Associated Signs and Symptoms: Denies: Decreased LOC, Polydipsia, Polyuria, Polyphagia, Weight loss, Abdominal pain, Nausea, Vomiting, Fever, Diaphoresis, Fruity breath Cardiac Risk Factors: Reports: DM, Hypertension CVA Risk Factors: Reports: DM, Hypertension Serious Bacterial Infection Risk Factors: Reports: None Related Surgical History: Reports: None Acetone on Breath: No Dry Mucous Membranes: No Kussmaul Respirations: No Glascow Coma Scale (see protocol): 15 Meningeal Signs: No Focal Weakness: None Focal Sensory Loss: None Gait: Unable Nystagmus Present: No Gag Reflex Present: Yes Finger to Nose: Normal Differential Diagnoses: Hyperglycemia Review of Systems - Review Of Systems Constitutional: Reports: No symptoms Eyes: Reports: No symptoms Ears, Nose, Mouth, Throat: Reports: No symptoms Respiratory: Reports: No symptoms Cardiac: Reports: No symptoms GI: Reports: No symptoms : Reports: No symptoms Musculoskeletal: Reports: No symptoms Skin: Reports: No symptoms Neurological: Reports: No symptoms Endocrine: Reports: No symptoms Hematologic/Lymphatic: Reports: No symptoms All Other Systems: Reviewed and Negative Past Medical History - Past Medical History Previously Healthy: No Endocrine: Reports: DM 2 Cardiovascular: Reports: SC, Hypertension Respiratory: Reports: COPD Hematological: Reports: None Gastrointestinal: Reports: None Genitourinary: Reports: None Neuro/Psych: Reports: Anxiety Musculoskeletal: Reports: Arthritis, Back Pain Cancer: Reports: Other (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 ) - Surgical History General Surgical History: Reports: CABG - Family History Family History: Reports: Diabetes - Social History Smoking Status: Current every day smoker, Heavy tobacco smoker Hx Substance Use: No (on methadone for back pain) Alcohol Screening: None Physical Exam - Physical Exam Appearance: Well-appearing, No pain distress, Well-nourished Eyes: OBDULIO, EOMI, Conjunctiva clear ENT: Ears normal, Nose normal, Oropharynx normal Respiratory: Airway patent, Breath sounds clear, Breath sounds equal, Respirations nonlabored Cardiovascular: RRR, Pulses normal, No rub, No murmur GI/: Soft, Nontender, No masses, Bowel sounds normal, No Organomegaly Musculoskeletal: Normal strength, ROM intact, No edema, No calf tenderness Skin: Warm, Dry, Normal color Neurological: Sensation intact, Motor intact, Reflexes intact, Cranial nerves intact, Alert, Oriented Psychiatric: Affect appropriate, Mood appropriate Critical Care Note - Critical Care Note Total Time (mins): 0 Course - Course Orders, Labs, Meds: Orders Category Date Time Status ED ACCUCHECK ASSESSMENT .ONCE EMERGENCY 01/26/19 11:51 Active Vital Signs: Temp Pulse Resp BP Pulse Ox 01/26/19 11:32 97.5 F L 92 H 20 146/75 H 96 Departure - Departure Time of Disposition: 11:54 Disposition: HOME SELF-CARE Discharge Problem: Uncontrolled diabetes mellitus Qualifiers: Diabetes mellitus type: type 2 Glycemic state: with hyperglycemia Qualified Code(s): E11.65 - Type 2 diabetes mellitus with hyperglycemia Instructions: Type 2 Diabetes Management for Adults (ED) Condition: Good Pt referred to PMD for follow-up: Yes IPMP verified?: No Additional Instructions: Please call your Family Physician as soon as possible to schedule a follow-up appointment. WE HAVE ORDERED A TEST WHICH WILL HELP YOUR DOCTOR TO FINE TUNE YOUR BLOOD SUGAR PLEASE SEE HIM SOON POSSIBLE Allergies/Adverse Reactions: Allergies codeine Adverse Reaction (Verified 01/26/19 11:36) Hives fentanyl Adverse Reaction (Verified 01/26/19 11:36) Hives Home Medications: Ambulatory Orders Omeprazole Magnesium [Prilosec Otc] 20 mg PO DAILY 12/30/16 Methadone HCl [Methadone] 80 mg pe PO TID 11/27/17 Aspirin [Aspir-Low] 81 mg PO DAILY 01/02/18 Atorvastatin Calcium 10 mg PO BEDTIME 01/02/18 Promethazine HCl [Phenergan Tab] 25 mg PO Q6H PRN #30 tablet 12/14/18 Disposition Discussed With: Patient, Family
[2019-01-26] MEDS ORDERED: HUMULIN R SUBCUT STA (11:59)
== END 2019-01-26 12:35 | disposition home or self-care (01) ==
LOC: ED 11:31
DX: E11.65 Type 2 diabetes mellitus with hyperglycemia (principal); I10 Essential (primary) hypertension; F17.210 Nicotine dependence, cigarettes, uncomplicated
CPT/HCPCS: 36415; 82962; 83036; 96372; 99283

== ENCOUNTER 2019-02-15 18:00 | Emergency (ER) ==
[2019-02-15 18:05] VITALS: BP 160/71; TEMP 99.5
--- NOTE | 2019-02-15 18:31 | ED.PDOC ---
General ED Provider: Dr. SUSAN MCINTYRE Chief Complaint: Cellulitis Stated Complaint: Cellulitis leg. Chronic bilat legs. Seen by pain mgt today who advised him go to ER. Has not seen Wound care but used silvadene topically and since beginning application has improved. Time Seen by Physician: 18:20 Mode of Arrival: Wheelchair Information Source: Patient Exam Limitations: No limitations Primary Care Provider: TREVA MONTALVO Referred to ED by: Other Nursing and Triage Documentation Reviewed and Agree: Yes Does patient meet sepsis criteria?: No System Inflammatory Response Syndrome: Not Applicable Sepsis Protocol: For patient's 13 years and over: Temp is 96.8 and below OR 101 and greater Pulse >90 BPM Resp >20/minute Acutely Altered Mental Status Are patient's symptoms suggestive of a new infection, such as: -Pneumonia -Skin, Soft Tissue -Endocarditis -UTI -Bone, Joint Infection -Implantable Device -Acute Abdominal Infection -Wound Infection -Meningitis -Blood Stream Catheter Infection -Unknown Skin Complaint Exam - Skin/Soft Tissue Complaint/Exam Symptoms Are: Still present Timing: Constant Initial Severity: Mild Current Severity: Moderate Character: Reports: Redness, Swelling Aggravating: Reports: None Alleviating: Reports: None Associated Signs and Symptoms: Denies: Fever, Chills, Itching, Drainage, Bruising, Tenderness, Red streaks, Joint swelling Related History: Reports: Similar episode Related Surgical History: Reports: None Recent Exposure to Others w/Similar Symptoms: No Skin Findings: Present: Erythema, Induration, Skin lesion Joint Tenderness Present: No Differential Diagnoses: Cellulitis Review of Systems - Review Of Systems Constitutional: Reports: No symptoms Eyes: Reports: No symptoms Ears, Nose, Mouth, Throat: Reports: No symptoms Respiratory: Reports: No symptoms Cardiac: Reports: No symptoms GI: Reports: No symptoms : Reports: No symptoms Musculoskeletal: Reports: No symptoms Skin: Reports: No symptoms, Change in color, Lesions Neurological: Reports: No symptoms Endocrine: Reports: No symptoms Hematologic/Lymphatic: Reports: No symptoms All Other Systems: Reviewed and Negative Past Medical History - Past Medical History Previously Healthy: No Endocrine: Reports: DM 2 Cardiovascular: Reports: NH, Hypertension Respiratory: Reports: COPD Hematological: Reports: None Gastrointestinal: Reports: None Genitourinary: Reports: None Neuro/Psych: Reports: Anxiety Musculoskeletal: Reports: Arthritis, Back Pain Cancer: Reports: Other (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 ) - Surgical History General Surgical History: Reports: CABG - Family History Family History: Reports: Diabetes - Social History Smoking Status: Current every day smoker, Heavy tobacco smoker Hx Substance Use: No (on methadone for back pain) Alcohol Screening: None Physical Exam - Physical Exam Appearance: Ill-appearing, Obese Ill-appearing: Mild Pain Distress: Mild Eyes: OBDULIO, EOMI, Conjunctiva clear ENT: Ears normal, Nose normal, Oropharynx normal Neck: Supple Respiratory: Airway patent, Breath sounds clear, Breath sounds equal, Respirations nonlabored Cardiovascular: RRR, Pulses normal, No rub, No murmur GI/: Soft, Nontender, No masses, Bowel sounds normal, No Organomegaly Musculoskeletal: Normal strength, ROM intact, No edema, No calf tenderness Skin: Warm (erythrema) Neurological: Sensation intact (diminished legs) Psychiatric: Affect appropriate, Mood appropriate Critical Care Note - Critical Care Note Total Time (mins): 0 Course - Course Vital Signs: Temp Pulse Resp BP Pulse Ox 02/15/19 18:01 99.5 F 81 20 160/71 H 94 L Departure - Departure Time of Disposition: 18:45 Disposition: HOME SELF-CARE Discharge Problem: Cellulitis of lower leg Instructions: Cellulitis (ED) Condition: Fair Pt referred to PMD for follow-up: Yes (DR Cagle for wound care ) IPMP verified?: No Additional Instructions: Follow wound care instructions; cleanse with antiseptic soap and water daily prior to applying silvadene Get referral from Dr Cagle Allergies/Adverse Reactions: Allergies codeine Adverse Reaction (Verified 02/15/19 18:06) Hives fentanyl Adverse Reaction (Verified 02/15/19 18:06) Hives Home Medications: Ambulatory Orders Omeprazole Magnesium [Prilosec Otc] 20 mg PO DAILY 12/30/16 Methadone HCl [Methadone] 80 mg pe PO TID 11/27/17 Aspirin [Aspir-Low] 81 mg PO DAILY 01/02/18 Atorvastatin Calcium 10 mg PO BEDTIME 01/02/18 Promethazine HCl [Phenergan Tab] 25 mg PO Q6H PRN #30 tablet 12/14/18 Cephalexin [Keflex] 500 mg PO BID #20 capsule 02/15/19 Silver Sulfadiazine [Silvadene Cream] 1 applic TP DAILY #15 applic 02/15/19 Disposition Discussed With: Patient
[2019-02-15] MEDS ORDERED: SILVADENE CREAM TP STA (18:45)
== END 2019-02-15 19:13 | disposition home or self-care (01) ==
LOC: ED 18:00
DX: L03.116 Cellulitis of left lower limb (principal); L03.115 Cellulitis of right lower limb; I10 Essential (primary) hypertension; E11.9 Type 2 diabetes mellitus without complications; I25.2 Old myocardial infarction; F17.210 Nicotine dependence, cigarettes, uncomplicated; Z79.899 Other long term (current) drug therapy
CPT/HCPCS: 87070; 87186; 99283

== ENCOUNTER 2019-03-02 14:15 | Observation (INO) ==
[2019-03-02] MEDS ORDERED: LOVENOX SUBCUT SCH (15:30)
[2019-03-02] MEDS ORDERED: INSULIN LISPRO 12 UNIT SQ SCH (16:30)
[2019-03-02] MEDS ORDERED: NON-FORMULARY MEDICATION (Omeprazole Magnesium [Prilosec Otc] 20 MG) PO SCH (16:30)
--- NOTE | 2019-03-02 16:35 | CT ---
EXAM: CT of the chest without contrast History: Short of breath and weight gain. Comparison: Chest CT 03/31/2018 Technique: Multiplanar CT images through the thorax were obtained without the administration of IV c ontrast Findings: Heart size is normal. Coronary calcifications. No pericardial effusion. No thoracic aor tic aneurysm. Bilateral gynecomastia. No pathologically enlarged thoracic lymph nodes. Calcified g ranulomas again seen within the thorax. No consolidation. No pleural fluid and no pneumothorax. St able benign 5 mm left lower lobe lung nodule. No suspicious lung nodules or lung masses. Within the visualized upper abdomen, the liver is fatty. Calcified granulomas are seen within the sp robyn. There is atrophy of the pancreas. No acute osseous abnormalities. Sternotomy wires. Postsur gical changes of the lumbar spine. Impression: 1. No acute intrathoracic process. 2. Coronary artery disease. 3. Old granulomatous disease. 4. Hepatic steatosis. 5. Atrophy of the pancreas. 6. Bilateral gynecomastia
--- NOTE | 2019-03-02 16:52 | US ---
EXAM: Bilateral lower extremity venous Doppler History: Bilateral lower extremity pain and edema. Technique: Multiple sonographic images through the bilateral lower extremities were obtained. Color duplex Doppler was used to interrogate vascular flow. Findings: The bilateral common femoral, greater saphenous, profunda, superficial femoral, popliteal, peroneal and right posterior tibial veins demonstrate spontaneous flow with normal compression marlon l augmentation. The bilateral anterior tibial veins and left posterior tibial vein are not well visu alized due to the bilateral lower extremity edema. 4.4 cm x 1.5 cm of 1.9 cm mixed echogenic area wi thin the subcutaneous soft tissues near the right superficial femoral vein is probably a focus of shakila ma or normal background tissue. Impression: No sonographic evidence for deep venous thrombosis.
[2019-03-02] MEDS ORDERED: NEURONTIN PO SCH (17:00)
[2019-03-02] MEDS ORDERED: NON-FORMULARY MEDICATION (Gabapentin [Gabapentin] 600 MG) PO SCH (17:00)
[2019-03-02] MEDS: METHADONE PO SCH (17:20)
[2019-03-02] MEDS: ZESTRIL PO SCH (17:21)
[2019-03-02] MEDS: IMDUR PO SCH (17:21)
[2019-03-02] MEDS: NEURONTIN PO SCH (17:21)
[2019-03-02] MEDS: PRILOSEC PO SCH (17:21)
[2019-03-02] MEDS: LIPITOR PO SCH ×2 (17:22→20:22)
[2019-03-02] MEDS: HUMALOG SUBCUT SCH (17:23)
[2019-03-02] MEDS ORDERED: LOVENOX SUBCUT STA (17:27)
[2019-03-02] MEDS ORDERED: LASIX IM STA (19:04)
[2019-03-02] MEDS: LANTUS SUBCUT SCH (20:22)
[2019-03-03] MEDS: METHADONE PO SCH ×3 (00:50→16:53)
[2019-03-03] MEDS: NEURONTIN PO SCH ×3 (00:50→16:53)
[2019-03-03] MEDS: PRILOSEC PO SCH (05:54)
[2019-03-03] MEDS: ZESTRIL PO SCH (08:55)
[2019-03-03] MEDS: IMDUR PO SCH (08:55)
[2019-03-03] MEDS: LOVENOX SUBCUT SCH (08:56)
[2019-03-03] MEDS: HUMALOG SUBCUT SCH ×3 (08:59→16:54)
[2019-03-03] MEDS ORDERED: SILVADENE CREAM TP SCH (09:00)
[2019-03-03] MEDS: SILVADENE CREAM TP SCH (09:34)
[2019-03-03] MEDS ORDERED: LASIX IVP STA (10:12)
--- NOTE | 2019-03-03 11:38 | HP ---
DATE OF SERVICE: 03/02/19 CHIEF COMPLAINT: Leg swelling and weight gain. HISTORY OF PRESENT ILLNESS: The patient presented to the office today with complaints of lower extremity swelling. He reports that his lower extremities has busted open and have been leaking. He had been applying Silvadene ointment as instructed by his Fiance and his legs have started to dry up however they have remained red and tightly edematous. He reports that he is not taking his Lasix in approximately two days he felt that is was not helping. He states "I have about 40 pounds of water weight on me." He states the the "cellulitis" to his legs has been there for approximately two weeks. He tells me that he did see a doctor in the emergency department a few ago. He saw a physician at [facility] on 02/15/19 for the same complaints. I did review that emergency department dictation. He was treated with an oral antibiotic and discharged home. Upon review of that dictation he was instructed with followup with his primary care provider and he was instructed that he needed to see Wound Care. He did not followup with his primary care provider as instructed. He does report that his lower extremities have been draining clear, yellow drainage. He denies any fever, chest pain. He does report that he does have some shortness of breath. He is prescribed Lasix 40mg daily. He is chronic pain medications for chronic back pain. He does use a motorized wheelchair. He does have difficulty standing because of his past medical history. He does have a history of lumbar surgery for plasma cytoma of the bone. He has difficulty standing with very little mobility with the exception of just a few steps. He does report that he tries to elevate he lower extremities as much as possible while he is at home. 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 Diabetes mellitus type 2 FAMILY HISTORY: Cancer on the paternal side Father was killed in a robbery One sister is hypertensive One sister had kidney disease 4 sisters Brother had carcinoma with heart disease Diabetes in the family Thyroid disease Stroke SOCIAL HISTORY: He does report that he has a fiance. He does live by himself. He does admit to chronic tobacco use. He denies any alcohol use or any substance abuse use. MEDICATIONS: Recent use of Silvadene cream to lower extremities for cellulitis Humalog 12 units with each meal Lantus 60units at bedtime Gabapentin 800mg three times a day Lasix 40mg daily as needed Imdur 30mg tablet ER 24 medication once daily Lisinopril 5mg daily Methadone Dr. Cagle reports per last History and physical 40mg three times a day Prilosec 20mg tablet daily Atorvastatin 10mg tablet daily Aspirin 81mg daily ALLERGIES: Codeine Fentanyl REVIEW OF SYSTEMS: CONSTITUTIONAL: He denies any fever or chills. He does have some fatigue. EQUIPMENT INSPECTOR: Denies any significant headaches. He is wheelchair bound. He does normally get around in a motorized wheelchair. No syncopal episodes. Denies any seizure events. VISUAL: No reports of double visions or blurred vision or any transient loss of vision. AUDITORY: The patient's hearing is adequate. No reports of pain, drainage or tinnitus. RESPIRATORY: He has a chronic cough, chronic tobacco use. CARDIOVASCULAR: No reports of any chest pain. He does have a history of coronary artery disease with bypass. He also has a history of hypertension. GASTROINTESTINAL: No reports of nausea or vomiting, diarrhea or constipation. No reports of blood in the stool GENITOURINARY: Denies any pain with urination. No reports of frequency or dysuria. MUSCULOSKELETAL: He does have significant weakness of bilateral lower extremities. He had difficulty standing to get weighted today at the office. He has pain to his low back as well secondary to plasmacytoma effecting the lumbar spine. He did have a surgery to stabilize the lumbar spine with some retropulsion of the fracture fragments. ENDOCRINE: He has diabetes mellitus type 2. He is on insulin. He is noncompliant with his regimen. He does have markedly elevated blood sugar with an A1c that is 11+ according to Dr. Cagle's last dictation. INTEGUMENT: Denies of rash or pruritus. There is no spontaneous ecchymosis. HEMATOLOGIC: No history of prolonged bleeding or spontaneous bleeding. The patient has a history of anemia. PSYCHIATRIC: He is alert and oriented. He is no acute distress. PHYSICAL EXAMINATION: GENERAL: This is a 59 year old patient of Dr. Cagle. He was admitted because of lower extremity swelling and significant 40 pound weight gain. He is in no acute distress. VITAL SIGNS: Height 5'10, weight 294 pounds recorded last office visit on his weight was reported at 252 pounds. BMI 42.2, temperature 97.7, pulse 82, respiratory rate 20, blood pressure 152/72. HEAD: Unremarkable. Scalp has no active dermatitis. FACE: Symmetrical and no redness. No significant tenderness in the frontal and maxillary sinus areas. EYES: Pupils equal/reactive to light. Conjunctivae pale. Sclerae not icteric. About 3mm in size. MOUTH: Poor dentition. He does not have any dentures. He is missing teeth. THROAT: No inflammation, tumors or exudate. NECK: No masses. No bruit. No tenderness. No rigidity. CHEST: Essentially symmetrical and equal. Fairly good expansion. LUNGS: Breath sound are diminished. No rales or wheezing. HEART: Audible and regular with good tones. No murmurs. ABDOMEN: Slightly protuberant. Soft. No tenderness. No guarding. Bowel sounds are active. No masses are appreciated. EXTERNAL GENITALIA: Not examined RECTAL: Not performed LOWER EXTREMITIES: Tightly edematous from the knees to the feet. They are red and shinny with scaly scabbing to the shins. UPPER EXTREMITIES: Symmetrical and equal. The patient does have a scar to the lumbar spine from previous surgeries times two. ASSESSMENT: 1. Extensive weight gain in the amount of approximate 40 pounds, undetermined etiology rule out congestive heart failure with patient's complaints of shortness of breath. 2. Significant lower extremity edema with recent treatment for cellulitis at the emergency department visit and given oral antibiotics. 3. Noncompliance with medical regimen 4. Uncontrolled diabetes mellitus type 2 5. Tobacco use 6. Low back pain, on Methadone treatment 7. History of solitary plasmacytoma of the bone involving the lumbar spine and soft tissue contiguous to lumbar spine 8. History of coronary artery disease established 1987 operated 2007 with bypass surgery 9. History of hypertension on medication 10.Dyslipidemia 11.Obesity with BMI of 42.2 12.COPD 13.Sleep apnea 14.History of gastroesophageal reflux disease 15.Osteoarthritis 16.Degenerative joint disease of the spine PLAN: 1. Admit the patient to the hospital 2. We will obtain NT PRO BNP 3. Will order blood cultures and lab work 4. Place the patient on a strict ADA diet 5. We will obtain a 2D echocardiogram of his heart 6. No smoking 7. He may need a cardiology consultation 8. He may need antibiotics pending results of testing Further orders and recommendations per Dr. Cagle. TIME SPENT: GREATER THAN 65 MINUTES MTDD
[2019-03-03] MEDS: LIPITOR PO SCH (20:41)
[2019-03-03] MEDS: LANTUS SUBCUT SCH (20:42)
[2019-03-04] MEDS: NEURONTIN PO SCH ×3 (01:03→08:26)
[2019-03-04] MEDS: METHADONE PO SCH ×3 (01:03→08:28)
[2019-03-04] MEDS: PRILOSEC PO SCH (05:42)
[2019-03-04] MEDS ORDERED: LASIX TAB PO SCH (06:30)
[2019-03-04] MEDS: ZESTRIL PO SCH (08:27)
[2019-03-04] MEDS: IMDUR PO SCH (08:27)
[2019-03-04] MEDS: LOVENOX SUBCUT SCH (08:29)
[2019-03-04] MEDS: SILVADENE CREAM TP SCH (08:29)
[2019-03-04] MEDS: HUMALOG SUBCUT SCH ×2 (08:43→11:56)
[2019-03-04 10:45] VITALS: BP 115/64; TEMP 98.6
--- NOTE | 2019-03-04 10:48 | ECHO2D ---
Date of Exam: 03/03/19 Ordering Physician: DR. TREVA CALDWELL Room # : 119 Reason for Echo: SOB, SWELLING, WEIGHT GAIN, CABG 2004 M-Mode Normal Adult Results LV Dimensions Normal Adult Results AoV Opening excursions >1.6 >1.6 LVEDD-base- 3.5-5.8 6.1 Ao root dimensions 2.0-3.7 3.8 LVESD-base- 3.1-4.6 L. Atrium dimensions 1.9-3.8 5.1 Post. Wall thickness 0.8-1.1 1.2 IV septum (thickness) 0.7-1.2 1.2 Post. Wall excursion 0.72-1.3 NORMAL Septal motion 0.6 Systolic motion R. Ventricular cavity 1.5-2.0 NORMAL LVEF 60% 50% Paradoxical septal wall motion NORMAL 2-D : ENLARGED LEFT ATRIAL CAVITY, HYPOKINETIC SEPTUM, ENLARGED LEFT VENTRICLE CAVITY, NO THROMBUS, NO EFFUSION, NORMAL VALVES M-MODE: MV: NORMAL AV: NORMAL TV: NORMAL PV: NORMAL CHAMBER SIZE: ENLARGED LEFT ATRIAL AND LEFT VENTRICLE CAVITIES WALL MOTION: HYPOKINETIC SEPTUM PERICARDIUM: NORMAL INTERPRETATION: 1. HYPOKINETIC SEPTUM WITH EJECTION FRACTION 50% 2. LEFT VENTRICULAR HYPERTROPHY 3. ENLARGED LEFT VENTRICLE AND LEFT ATRIAL CAVITIES 4. JULIO VALVES MTDD
--- NOTE | 2019-03-15 13:20 | DS ---
DATE OF SERVICE: 03/04/19 FINAL DIAGNOSES: 1. MILD EXACERBATION OF HEART FAILURE WITH PRESERVED EJECTION FRACTION WITH 2D ECHO DONE THIS ADMISSION SHOWING A HYPOKINETIC SEPTUM WITH ENLARGED LEFT ATRIUM AND LEFT VENTRICULAR CAVITY WITH EJECTION FRACTION OF 50 WITH PATIENT HAVING APPROXIMATE OF A 40 LB WEIGHT GAIN WITH MILDLY ELEVATED NT PRO BNP OF 322 ON ADMISSION. 2. RECENT TREATMENT FOR CELLULITIS OF THE LOWER EXTREMITIES WITH ONGOING EDEMA TO LOWER EXTREMITIES. 3. UNCONTROLLED DIABETES MELLITUS TYPE 2 WITH AN A1C OF 10.74 THIS ADMISSION WITH BLOOD SUGARS IN THE 400 RANGE WHILE INPATIENT. 4. TOBACCO USE. 5. CHRONIC LOW BACK PAIN ON METHADONE TREATMENT. 6. HISTORY OF SOLITARY PLASMACYTOMA OF THE BONE INVOLVING THE LUMBAR SPINE AND SOFT TISSUE CONTIGUOUS TO LUMBAR SPINE. 7. HISTORY OF CORONARY ARTERY DISEASE ESTABLISHED 1987, OPERATED 2007 WITH BYPASS SURGERY. 8. HISTORY OF HYPERTENSION ON MEDICATION. 9. DYSLIPIDEMIA. 10. OBESITY WITH BMI OF 42.2. 11. COPD. 12. SLEEP APNEA. 13. HISTORY OF GASTROESOPHAGEAL REFLUX DISEASE. 14. OSTEOARTHRITIS. 15. DEGENERATIVE JOINT DISEASE OF THE SPINE. 16. DECREASED MOBILITY WITH USE OF MOTORIZED WHEELCHAIR. BRIEF HISTORY OF PRESENT ILLNESS/HOSPITAL COURSE: Mr. Estrada is a pleasant 59-year-old patient of Dr. Cagle who presented to the office with complaints of weight gain and lower extremity swelling. He had reported his lower extremities had busted open and had been leaking. He had been applying Silvadene ointment to his lower extremities. He reported that he had not taken his Lasix in approximately two days as he had felt that it was not helping. He states that he had had cellulitis to his lower extremities for approximately two weeks. He did see a doctor in the emergency department and he was given antibiotics for that. Upon review of that dictation from the emergency department he had been instructed to see primary care provider and wound care. He did not followup with his primary care provider nor did he followup with wound care. He does report that his lower extremities had been draining clear to yellow drainage however this has dried up with Silvadene. He denies any fever or chest pain. He does report shortness of breath. He is prescribed Lasix 40 mg daily. He does have chronic pain in his back. He does use a motorized wheelchair for getting around. He does have difficulty standing because of his past medical history. He does have a past history of plasmacytoma of the bone. He can take a few steps. PERTINENT LABS AND DIAGNOSTIC TESTING DONE THIS HOSPITAL STAY: Again, NT-PRO-BNP was mildly elevated at 322 with concerns for mild congestive heart failure. His hemoglobin A1C was 10.74. Blood sugars elevated during this admission of 451 and 374 per fasting labs. His hemoglobin most recent was 10.8 , his hematocrit 34.4. His most recent sodium was 130.4, chloride 87.6. His echocardiogram done has already been reviewed and did show a hypokinetic septum with ejection fraction of 50%, a left ventricular hypertrophy and enlarged left ventricle and left atrium cavity and normal valves. His venous doppler studies were negative. His CT of the chest is negative. DISCHARGE MEDICATIONS: Will remain the same as his home medications with exception of Silvadene will be discontinued. He is instructed to use either Vaseline or baby oil to his lower extremities twice a day. He does verbalize understanding of this. DISCHARGE DIET: ADA low sodium diet. We did discuss that today. DISCHARGE ACTIVITY LEVEL: He has been instructed to keep the legs elevated as much as possible throughout the day. He does understand this. He will have a followup appointment on Thursday of next week. Further labs and diagnostic testing will be discussed at that appointment. He will need to see Dr. Cagle prior to discharge with further orders and recommendations per Dr. Cagle. Vital signs: Temperature 98.6, pulse rate 84, blood pressure 115/64. His respiratory rate 16 and 02 sat 92% on room air. His weight recorded today was 274 and on admission his weight was recorded at 298. His weight was down a total of 24 lbs from admission. TIME SPENT: GREATER THAN 30 MINUTES MTDD
== END 2019-03-04 14:51 | disposition home or self-care (01) ==
LOC: MEDSURG B 14:15 → INTOOBSV 14:15
PROVIDERS: ADMIT General Practice; ATTEND General Practice
DX: M79.662 Pain in left lower leg (principal); M79.661 Pain in right lower leg; M79.89 Other specified soft tissue disorders; M54.5 Low back pain; M19.90 Unspecified osteoarthritis, unspecified site; M47.9 Spondylosis, unspecified; R60.0 Localized edema; R63.5 Abnormal weight gain; L03.116 Cellulitis of left lower limb; L03.115 Cellulitis of right lower limb; I10 Essential (primary) hypertension; I50.30 Unspecified diastolic (congestive) heart failure; E11.65 Type 2 diabetes mellitus with hyperglycemia; E78.5 Hyperlipidemia, unspecified; E66.9 Obesity, unspecified; J44.9 Chronic obstructive pulmonary disease, unspecified; G47.30 Sleep apnea, unspecified; K21.9 Gastro-esophageal reflux disease without esophagitis; Z68.41 Body mass index [BMI] 40.0-44.9, adult; Z72.0 Tobacco use; Z91.14 Patient's other noncompliance with medication regimen; Z79.4 Long term (current) use of insulin; Z95.1 Presence of aortocoronary bypass graft
CPT/HCPCS: 36415; 80053; 80061; 80306; 82550; 82803; 82962; 83036; 83880; 84145; 84484; 85025; 87040; 93005; 93010; 96372; 96374; 97802

== ENCOUNTER 2019-03-15 21:19 | Emergency (ER) ==
[2019-03-15 21:28] VITALS: BP 150/69; TEMP 98.8; BMI 40.4
[2019-03-15] MEDS ORDERED: K-DUR PO STA (23:07)
[2019-03-15] MEDS ORDERED: DILAUDID 1 MG/ML SYRINGE IM STA (23:08)
--- NOTE | 2019-03-15 23:11 | ED.PDOC ---
General ED Provider: Dr. SUSAN TOM-ER Chief Complaint: Weakness Stated Complaint: im weak and im afraid my potassium is low--my back also hurts Time Seen by Physician: 21:25 Mode of Arrival: Wheelchair Information Source: Patient Exam Limitations: No limitations [facility] Nursing and Triage Documentation Reviewed and Agree: Yes Does patient meet sepsis criteria?: No System Inflammatory Response Syndrome: Not Applicable Sepsis Protocol: For patient's 13 years and over: Temp is 96.8 and below OR 101 and greater Pulse >90 BPM Resp >20/minute Acutely Altered Mental Status Are patient's symptoms suggestive of a new infection, such as: -Pneumonia -Skin, Soft Tissue -Endocarditis -UTI -Bone, Joint Infection -Implantable Device -Acute Abdominal Infection -Wound Infection -Meningitis -Blood Stream Catheter Infection -Unknown Miscellaneous Complaint Exam - Complex/Multi-System Complaint/Exam Onset/Duration: 24hrs Symptoms Are: Still present Initial Severity: Mild Current Severity: Mild Location of Pain: lower back Associated Signs and Symptoms: Reports: Weakness, Back pain. Denies: Decreased responsiveness, Confusion, Agitation, Dizziness Recent Echo/LV Function: No Respiratory Distress: None JVD Present: No Tachypnea Present: No Stridor Present: No Abdominal Findings: Present: Normal findings Glascow Coma Scale (see protocol): 15 Meningeal Signs Positive: No Focal Weakness: Present: None Focal Sensory Loss: Present: None Gait: Abnormal Gag Reflex Present: Yes Skin Findings: Present: Normal findings Joint Swelling Present: No In-Dwelling Device Present: No Quality Indicator For Non-Traumatic Chest Pain/Syncope: EKG Performed Review of Systems - Review Of Systems Constitutional: Reports: No symptoms, Weakness Eyes: Reports: No symptoms Ears, Nose, Mouth, Throat: Reports: No symptoms Respiratory: Reports: No symptoms Cardiac: Reports: No symptoms GI: Reports: No symptoms : Reports: No symptoms Musculoskeletal: Reports: Back pain Skin: Reports: No symptoms Neurological: Reports: No symptoms Endocrine: Reports: No symptoms Hematologic/Lymphatic: Reports: No symptoms All Other Systems: Reviewed and Negative Past Medical History - Past Medical History Previously Healthy: No Endocrine: Reports: DM 2 Cardiovascular: Reports: [place], Hypertension Respiratory: Reports: COPD Hematological: Reports: None Gastrointestinal: Reports: None Genitourinary: Reports: None Neuro/Psych: Reports: Anxiety Musculoskeletal: Reports: Arthritis, Back Pain Cancer: Reports: Other (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 ) - Surgical History General Surgical History: Reports: CABG - Family History Family History: Reports: Diabetes - Social History Smoking Status: Current every day smoker, Heavy tobacco smoker Hx Substance Use: No (on methadone for back pain) Alcohol Screening: None - Immunizations Tetanus Shot up to Date: Yes Physical Exam - Physical Exam Appearance: Well-appearing Pain Distress: Moderate Eyes: OBDULIO, EOMI, Conjunctiva clear ENT: Ears normal, Nose normal, Oropharynx normal Neck: Supple Respiratory: Airway patent, Breath sounds clear, Breath sounds equal, Respirations nonlabored Cardiovascular: RRR, Pulses normal, No rub, No murmur GI/: Soft, Nontender, No masses, Bowel sounds normal, No Organomegaly Musculoskeletal: Normal strength, No edema, No calf tenderness, Limited ROM Skin: Warm, Dry, Normal color Neurological: Sensation intact Psychiatric: Affect appropriate, Mood appropriate Interpretation - EKG Interpretation Time of EKG #1: 23:11 Rate: Normal Rhythm: Sinus Ectopy: None [place]: NL ST Segment: Normal Interpretation: sinus rythym Critical Care Note - Critical Care Note Total Time (mins): 0 Course - Course Hematology/Chemistry: 03/15/19 22:05 03/15/19 22:05 Orders, Labs, Meds: Lab Review 03/15/19 03/15/19 03/15/19 22:05 22:05 22:45 WBC 6.83 RBC 4.28 L Hgb 11.8 L Hct 36.8 L MCV 86.0 MCH 27.6 MCHC 32.1 RDW Coeff of Honorio 14.8 Plt Count 293 Immature Gran % (Auto) 0.4 Neut % (Auto) 70.7 Lymph % (Auto) 19.5 [place] % (Auto) 5.0 Eos % (Auto) 4.0 Baso % (Auto) 0.4 Immature Gran # (Auto) 0.0 Neut # (Auto) 4.8 Lymph # (Auto) 1.3 [place] # (Auto) 0.3 L Eos # (Auto) 0.3 Baso # (Auto) 0.0 Sodium 134.2 L Potassium 3.29 L Chloride 90.6 L Carbon Dioxide 34.1 H Anion Gap 12.79 BUN 10.4 Creatinine 0.91 Estimated GFR (MDRD) 85.00 BUN/Creatinine Ratio 11.42 Glucose 277.8 H Calcium 9.04 Total Bilirubin 0.27 AST 28.7 ALT 21.5 Alkaline Phosphatase 123.2 H Total Creatine Kinase 73.5 Troponin I < 0.012 Total Protein 6.97 Albumin 3.89 Globulin 3.08 Albumin/Globulin Ratio 1.26 Urine Color Light Urine Clarity Clear Urine pH 7.0 Ur Specific [place] 1.010 Urine Protein Negative Urine Glucose (UA) 2+ Urine Ketones Negative Urine Blood Trace-intact Urine Nitrite Negative Urine Bilirubin Negative Urine Urobilinogen 0.2 Ur Leukocyte Esterase Negative Urine Microscopic RBC 0-2 Ur Squamous Epith Cells 0-2 Orders Category Date Time Status EKG-(ED ONLY) Stat CARDIO 03/15/19 21:53 Ordered ED MEDIA STRATEGIST APPLIED .ONCE EMERGENCY 03/15/19 21:53 Active CBC W/ AUTO DIFF Stat LAB 03/15/19 22:05 Completed COMPREHENSIVE METABOLIC PANEL Stat LAB 03/15/19 22:05 Completed CREATINE KINASE Stat LAB 03/15/19 22:05 Completed TROPONIN I Stat LAB 03/15/19 22:05 Completed URINALYSIS C & S IF INDICATED Stat LAB 03/15/19 22:45 Completed Hydromorphone HCl [Dilaudid 1 mg/ml Syringe] MEDS 03/15/19 23:08 Stat 1 mg IM ONCE STA Potassium Chloride [K-Dur] MEDS 03/15/19 23:07 Stat 40 meq PO ONCE STA Medications Generic Name Dose Route Start Last Admin Trade Name Freq PRN Reason Stop Dose Admin Hydromorphone HCl 1 mg 03/15/19 23:08 Dilaudid 1 Mg/Ml Syringe IM 03/15/19 23:09 ONCE STA Discontinued Medications Generic Name Dose Route Start Last Admin Trade Name Freq PRN Reason Stop Dose Admin Potassium Chloride 40 meq 03/15/19 23:07 K-Dur PO 03/15/19 23:08 ONCE STA Vital Signs: Temp Pulse Resp BP Pulse Ox 03/15/19 21:21 98.8 F 87 24 150/69 H 97 Departure - Departure Time of Disposition: 23:11 Disposition: HOME SELF-CARE Discharge Problem: Muscle weakness, Hypokalemia Back pain Qualifiers: Back pain location: low back pain Chronicity: chronic Back pain laterality: unspecified Sciatica presence: unspecified whether sciatica present Qualified Code(s): M54.5 - Low back pain; G89.29 - Other chronic pain Instructions: Hypokalemia (ED) Condition: Stable Pt referred to PMD for follow-up: Yes IPMP verified?: No Additional Instructions: f/u with pcp Allergies/Adverse Reactions: Allergies codeine Adverse Reaction (Verified 03/15/19 21:30) Hives fentanyl Adverse Reaction (Verified 03/15/19 21:30) Hives Home Medications: Ambulatory Orders Omeprazole Magnesium [Prilosec Otc] 20 mg PO DAILY 12/30/16 Aspirin [Aspir-Low] 81 mg PO DAILY 01/02/18 Atorvastatin Calcium 10 mg PO BEDTIME 01/02/18 Gabapentin [Neurontin] 300 mg PO 0100,0900,1700 03/02/19 Methadone HCl [Methadone] 40 mg PO 0100,0900,1700 03/02/19 Disposition Discussed With: Patient, Family
== END 2019-03-15 23:24 | disposition home or self-care (01) ==
LOC: ED 21:19
DX: M54.5 Low back pain (principal); G89.29 Other chronic pain; E87.6 Hypokalemia; M62.81 Muscle weakness (generalized); I10 Essential (primary) hypertension; E11.9 Type 2 diabetes mellitus without complications; M19.90 Unspecified osteoarthritis, unspecified site; I25.2 Old myocardial infarction; J44.9 Chronic obstructive pulmonary disease, unspecified; F17.210 Nicotine dependence, cigarettes, uncomplicated; Z79.899 Other long term (current) drug therapy; Z85.830 Personal history of malignant neoplasm of bone; Z95.1 Presence of aortocoronary bypass graft
CPT/HCPCS: 36415; 80053; 81001; 82550; 84484; 85025; 93005; 93010; 96372; 99283

== ENCOUNTER 2019-03-17 12:46 | Outpatient (CLI) | END 2019-03-17 12:47 | disposition home or self-care (01) | LOC: RHC-LAB 12:46 | PROVIDERS: ATTEND General Practice | DX: I50.9 Heart failure, unspecified (principal); E11.8 Type 2 diabetes mellitus with unspecified complications; L03.119 Cellulitis of unspecified part of limb | CPT/HCPCS: 36415; 80053; 83880; 85025 ==

== ENCOUNTER 2019-05-10 20:44 | Outpatient (CLI) ==
[2019-05-10 21:17] VITALS: BMI 41.5
== END 2019-05-10 20:59 | disposition critical access hospital (66) ==
LOC: AMBL 20:44
PROVIDERS: ATTEND Internal Medicine Geriatric Medicine
DX: R06.03 Acute respiratory distress (principal); R53.1 Weakness; I95.9 Hypotension, unspecified; R73.9 Hyperglycemia, unspecified; I49.9 Cardiac arrhythmia, unspecified

== ENCOUNTER 2019-05-10 21:04 | Emergency (ER) ==
[2019-05-10] MEDS ORDERED: DUONEB NEB STA (21:07)
[2019-05-10] MEDS ORDERED: SODIUM CHLORIDE 1,000 ML IV STA (21:07)
[2019-05-10] MEDS ORDERED: EPINEPHRINE 1 MG/ML AMP IM STA (21:07)
[2019-05-10 21:17] VITALS: BP 77/55; TEMP 97.7; BMI 41.5
--- NOTE | 2019-05-10 21:49 | DI ---
EXAM: Chest single view Date: 05/10/2019 Comparison: Chest x-ray December 30, 2018 History: Shortness of breath FINDINGS: There are sternotomy wires. Cardiac silhouette and pulmonary vascularity are normal. Sandip cified pulmonary granuloma seen in the right mid lung. No consolidation, pleural effusion, or eviden ce of pneumothorax. No acute fractures in the chest. Impression: No active chest disease.
--- NOTE | 2019-05-10 21:53 | ED.PDOC ---
General ED Provider: Dr. CARLOS HATCH Chief Complaint: Shortness of Air Stated Complaint: Patient is a 59 year old male who comes to the ER with complains of shortness of breath he states after taking a Keflex for leg swelling. He states that he had a reaction to Kefelx on month ago when he swelled up. He Also took 3 nitroglycerin tables. BP was noted to be Low when EMS got to Him. Declined tranfer to denominational. Time Seen by Physician: 21:10 Mode of Arrival: Stretcher Information Source: Patient, EMT [facility] Seen Within Last 72 Hours for Same Complaint By: ED Nursing and Triage Documentation Reviewed and Agree: Yes Does patient meet sepsis criteria?: No System Inflammatory Response Syndrome: Not Applicable Sepsis Protocol: For patient's 13 years and over: Temp is 96.8 and below OR 101 and greater Pulse >90 BPM Resp >20/minute Acutely Altered Mental Status Are patient's symptoms suggestive of a new infection, such as: -Pneumonia -Skin, Soft Tissue -Endocarditis -UTI -Bone, Joint Infection -Implantable Device -Acute Abdominal Infection -Wound Infection -Meningitis -Blood Stream Catheter Infection -Unknown Review of Systems - Review Of Systems Constitutional: Reports: No symptoms Eyes: Reports: No symptoms Ears, Nose, Mouth, Throat: Reports: No symptoms Respiratory: Reports: No symptoms Cardiac: Reports: No symptoms GI: Reports: No symptoms : Reports: No symptoms Musculoskeletal: Reports: No symptoms Skin: Reports: No symptoms Neurological: Reports: No symptoms Endocrine: Reports: No symptoms Hematologic/Lymphatic: Reports: No symptoms All Other Systems: Reviewed and Negative Past Medical History - Past Medical History Previously Healthy: No Endocrine: Reports: DM 2 (poorly controlled ) Cardiovascular: Reports: [place], Hypertension Respiratory: Reports: COPD Hematological: Reports: None Gastrointestinal: Reports: None Genitourinary: Reports: None Neuro/Psych: Reports: Anxiety Musculoskeletal: Reports: Arthritis, Back Pain Cancer: Reports: Other (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 ) - Surgical History General Surgical History: Reports: CABG - Family History Family History: Reports: Diabetes - Social History Smoking Status: Current every day smoker, Heavy tobacco smoker Hx Substance Use: Yes (on methadone for back pain) Alcohol Screening: None - Immunizations Tetanus Shot up to Date: (UNKNOWN) Physical Exam - Physical Exam Appearance: Ill-appearing, Obese Ill-appearing: Mild Eyes: OBDULIO, EOMI, Conjunctiva clear Neck: Supple Respiratory: Airway patent, Breath sounds clear, Breath sounds equal, Respirations nonlabored Cardiovascular: RRR, Pulses normal, No rub, No murmur GI/: Soft, Nontender, No masses, Bowel sounds normal, No Organomegaly Musculoskeletal: Normal strength, ROM intact, No edema, No calf tenderness Skin: Warm Neurological: Sensation intact, Alert, Oriented Psychiatric: Anxious Interpretation - Radiology Interpretation Radiology Interpretation By: Radiologist Radiology Results: Negative Exam Interpreted: Portable CXR - [employer] Rate: Normal Rhythm: Sinus Ectopy: None - EKG Interpretation Time of EKG #1: 21:40 Rate: Normal Rhythm: Sinus Ectopy: None [place]: NL Interpretation: in completer bbb, Left atrial Enlargement Re-Evaluation - Re-Evaluation Time of Re-Evaluation: 21:55 Status: Improved Vital Signs Stable: Yes (116/52) Pain Level: none Critical Care Note - Critical Care Note Total Time (mins): 30 Course - Course Hematology/Chemistry: 05/10/19 21:20 05/10/19 21:20 Orders, Labs, Meds: Lab Review 05/10/19 05/10/19 05/10/19 21:07 21:20 21:20 WBC 12.89 H RBC 4.73 Hgb 12.9 L Hct 40.3 L MCV 85.2 MCH 27.3 MCHC 32.0 RDW Coeff of Honorio 15.1 H Plt Count 347 Immature Gran % (Auto) 0.8 Neut % (Auto) 85.3 Lymph % (Auto) 9.5 L [place] % (Auto) 2.3 Eos % (Auto) 1.9 Baso % (Auto) 0.2 Immature Gran # (Auto) 0.1 Neut # (Auto) 11.0 H Lymph # (Auto) 1.2 [place] # (Auto) 0.3 L Eos # (Auto) 0.3 Baso # (Auto) 0.0 Puncture Site Lb O2 Saturation 90.0 L ABG pH 7.355 ABG pCO2 47.4 H ABG pO2 62.0 L ABG HCO3 26.5 H ABG Total CO2 28 ABG Base Excess 1 Bryan Test + FiO2 % 21.0 Sodium 130.8 L Potassium 3.10 L Chloride 96.0 L Carbon Dioxide 27.3 Anion Gap 10.60 BUN 8.7 L Creatinine 1.06 Estimated GFR (MDRD) 72.00 BUN/Creatinine Ratio 8.20 Glucose 372.8 H Calcium 8.42 Total Bilirubin 0.27 AST 21.4 ALT 20.2 Alkaline Phosphatase 130.9 H Total Creatine Kinase 82.0 Troponin I < 0.012 Total Protein 6.45 Albumin 3.32 L Globulin 3.13 Albumin/Globulin Ratio 1.06 Orders Category Date Time Status ABG DRAW REQUEST Stat CARDIO 05/10/19 21:09 Ordered EKG-(ED ONLY) Stat CARDIO 05/10/19 21:07 Ordered NEBULIZER TREATMENT Stat CARDIO 05/10/19 21:09 Ordered ED APPLY O2 .ONCE EMERGENCY 05/10/19 21:07 Active ED NURSING ASSISTANT APPLIED .ONCE EMERGENCY 05/10/19 21:07 Active ED IV/MEDIPORT/POWERPORT .ONCE EMERGENCY 05/10/19 21:07 Active OXYGEN [ED APPLY O2] .ONCE EMERGENCY 05/10/19 21:43 Active ABG Stat LAB 05/10/19 21:07 Completed CBC W/ AUTO DIFF Stat LAB 05/10/19 21:20 Completed COMPREHENSIVE METABOLIC PANEL Stat LAB 05/10/19 21:20 Completed CREATINE KINASE Stat LAB 05/10/19 21:20 Completed TROPONIN I Stat LAB 05/10/19 21:20 Completed 0.9 % Sodium Chloride [Saline Flush] MEDS 05/10/19 21:07 Active 1 syr IVF PRN PRN Epinephrine Amp [Epinephrine 1 mg/ml Amp] MEDS 05/10/19 21:07 Discontinued 0.4 mg IM ONCE STA Ipratropium/Albuterol Neb [Duoneb] MEDS 05/10/19 21:07 Discontinued 1 vial NEB ONCE STA Potassium Chloride [K-Dur] MEDS 05/10/19 21:54 Discontinued 20 meq PO ONCE STA Sodium Chloride 0.9% [Sodium Chloride] 1,000 ml MEDS 05/10/19 21:07 Discontinued IV BOLUS CHEST, 1V AP ONLY Stat RADS 05/10/19 21:07 Completed Medications Generic Name Dose Route Start Last Admin Trade Name Freq PRN Reason Stop Dose Admin Sodium Chloride 1 syr 05/10/19 21:07 Saline Flush IVF PRN PRN To flush IV Discontinued Medications Generic Name Dose Route Start Last Admin Trade Name Freq PRN Reason Stop Dose Admin Albuterol/Ipratropium 1 vial 05/10/19 21:07 Duoneb NEB 05/10/19 21:08 ONCE STA Epinephrine HCl 0.4 mg 05/10/19 21:07 05/10/19 21:40 Epinephrine 1 Mg/Ml Amp IM 05/10/19 21:08 0.4 mg ONCE STA Administration Sodium Chloride 1,000 mls @ 1,000 mls/hr 05/10/19 21:07 Sodium Chloride IV 05/10/19 22:06 BOLUS STA Potassium Chloride 20 meq 05/10/19 21:54 05/10/19 21:59 K-Dur PO 05/10/19 21:55 20 meq ONCE STA Administration Vital Signs: Temp Pulse Resp BP Pulse Ox 05/10/19 21:06 97.7 F 90 24 77/55 L 95 Departure - Departure Time of Disposition: 22:41 Disposition: AMA Discharge Problem: COPD exacerbation Instructions: COPD (Chronic Obstructive Pulmonary Disease) (ED), Allergies (ED) Condition: Stable Pt referred to PMD for follow-up: Yes IPMP verified?: No Additional Instructions: Do not take Keflex as you may be allergic to it. Follow up with PCP in three days Allergies/Adverse Reactions: Allergies codeine Adverse Reaction (Verified 05/10/19 21:17) Hives fentanyl Adverse Reaction (Verified 05/10/19 21:17) Hives Home Medications: Ambulatory Orders Omeprazole Magnesium [Prilosec Otc] 20 mg PO DAILY 12/30/16 Aspirin [Aspir-Low] 81 mg PO DAILY 01/02/18 Atorvastatin Calcium 10 mg PO BEDTIME 01/02/18 Methadone HCl [Methadone] 40 mg PO 0100,0900,1700 03/02/19 Furosemide [Lasix Tab] 40 mg PO QDAC 04/14/19 Gabapentin 900 mg PO TID 04/14/19 Insulin Lispro [Admelog] 12 unit SQ DIRECTED PRN 04/14/19 Disposition Discussed With: Patient
[2019-05-10] MEDS ORDERED: K-DUR PO STA (21:54)
== END 2019-05-10 22:55 | disposition left against medical advice (07) ==
LOC: ED 21:04
DX: J44.1 Chronic obstructive pulmonary disease with (acute) exacerbation (principal); R06.02 Shortness of breath; E11.9 Type 2 diabetes mellitus without complications; I10 Essential (primary) hypertension; I25.2 Old myocardial infarction; Z79.4 Long term (current) use of insulin; Z79.899 Other long term (current) drug therapy; Z95.1 Presence of aortocoronary bypass graft; F17.210 Nicotine dependence, cigarettes, uncomplicated
CPT/HCPCS: 36415; 80053; 82550; 82803; 84484; 85025; 93005; 93010; 94640; 96360; 99284

== ENCOUNTER 2019-05-26 10:39 | Outpatient (CLI) ==
--- NOTE | 2019-05-26 11:10 | DI ---
EXAM: Two views of the chest. History: Short of breath Comparison: Chest radiograph 05/10/2019 Findings: Heart size is upper limits of normal. Sternotomy wires. No focal consolidation. No appr eciable pleural fluid and no pneumothorax. Calcified granuloma again seen within the right lung. No acute osseous abnormalities. Impression: No acute cardiopulmonary process
== END 2019-05-26 10:40 | disposition home or self-care (01) ==
LOC: RAD 10:39
PROVIDERS: ATTEND General Practice
DX: R06.02 Shortness of breath (principal); R60.0 Localized edema

== ENCOUNTER 2019-05-26 11:53 | Outpatient (CLI) | END 2019-05-26 11:54 | disposition home or self-care (01) | LOC: RHC-LAB 11:53 | PROVIDERS: ATTEND General Practice | DX: R06.02 Shortness of breath (principal); R60.0 Localized edema; L03.115 Cellulitis of right lower limb; L03.116 Cellulitis of left lower limb | CPT/HCPCS: 36415; 80053; 83880; 85025; 87070; 87186 ==

== ENCOUNTER 2019-07-02 01:04 | Inpatient (IN) ==
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
[2019-07-02] MEDS ORDERED: TORADOL IVP STA (02:07)
[2019-07-02] MEDS ORDERED: NORFLEX IM STA (02:08)
[2019-07-02] MEDS ORDERED: DILAUDID 1 MG/ML SYRINGE IVP STA (02:36)
[2019-07-02] MEDS ORDERED: HUMALOG SUBCUT STA (02:44)
[2019-07-02] MEDS ORDERED: HUMULIN R 100 UNIT in SODIUM CHLORIDE 99 ML IV SCH (02:45)
--- NOTE | 2019-07-02 04:15 | CT ---
EXAM: CT lumbar spine without intravenous contrast 07/02/2019. Sagittal and coronal reformatted mary ges obtained HISTORY: Chronic lower back pain COMPARISON: 08/24/2018 FINDINGS: Posterior fusion is present at the levels of L1-L5. Posterior decompressive laminectomy i s present at L3. Post kyphoplasty change of L3. There is loss of vertebral body height at the inferior aspect of L3. This also involves a portion of the anterior superior aspect of L4. Complete loss of disc height at this level. This configuration is unchanged Bony retropulsion of L3 is unchanged. There is no new fracture site. Lucency surrounding bilateral L5 screws is present. This has been previously described. This remain s consistent with hardware loosening. Severe bilateral neural foraminal stenosis at L3-L4. This is been previously described. Mild left and moderate right neural foraminal stenosis at L4-L5. Mild left and moderate right neural foraminal stenosis at L5-S1. IMPRESSION: 1. Posterior fusion at L1 through L5. Stable hardware loosening within bilateral L5 screws. 2. Stable compression fracture of L3 and L4 with post kyphoplasty change of L3. 3. Stable bony retropulsion of L3 with posterior decompressive laminectomy. 4. Multilevel neural foraminal stenosis most severe at L3-L4.
--- NOTE | 2019-07-02 04:42 | DI ---
EXAM: Chest, single view, 07/02/2019 HISTORY: Chest pain COMPARISON: 06/03/2019 FINDINGS / IMPRESSION: Cardiomediastinal contours appear stable. Postoperative changes of the media stinum. Bibasilar interstitial opacities likely due to atelectasis. Benign calcification of the rig ht lung. No pulmonary consolidation, effusion or pneumothorax
[2019-07-02] MEDS ORDERED: DILAUDID 1 MG/ML SYRINGE IVP PRN ×2 (05:00→11:19)
[2019-07-02 05:43] VITALS: BMI 40.4
[2019-07-02] MEDS: HUMULIN R SUBCUT PRN ×3 (06:58→10:30)
[2019-07-02] MEDS: LOVENOX SUBCUT SCH (08:01)
[2019-07-02] MEDS ORDERED: LASIX IVP STA (11:13)
[2019-07-02] MEDS ORDERED: NON-FORMULARY MEDICATION (Omeprazole Magnesium [Prilosec Otc] 20 MG) PO SCH (11:15)
[2019-07-02] MEDS ORDERED: HUMULIN R SUBCUT SCH (11:15)
[2019-07-02] MEDS ORDERED: METHADONE 40 MG PO SCH (11:15)
[2019-07-02] MEDS ORDERED: K-DUR PO SCH (11:30)
[2019-07-02] MEDS: ZAROXOLYN PO SCH (12:21)
[2019-07-02] MEDS: IMDUR PO SCH (12:22)
[2019-07-02] MEDS: ZESTRIL PO SCH (12:22)
[2019-07-02] MEDS: NEURONTIN PO SCH ×3 (12:22→21:21)
[2019-07-02] MEDS: METHADONE PO SCH ×3 (12:22→21:21)
[2019-07-02] MEDS: K-DUR PO SCH ×3 (12:23→21:21)
[2019-07-02] MEDS: ASPIRIN EC PO SCH (12:23)
[2019-07-02] MEDS: LANTUS SUBCUT SCH ×2 (12:25→21:30)
[2019-07-02] MEDS: HUMULIN R SUBCUT SCH ×3 (12:31→21:28)
[2019-07-02] MEDS: PRILOSEC PO SCH (12:31)
[2019-07-02] MEDS: LIPITOR PO SCH (21:21)
[2019-07-03] MEDS: HUMULIN R SUBCUT SCH ×4 (06:06→20:55)
[2019-07-03] MEDS: PRILOSEC PO SCH (06:07)
[2019-07-03] MEDS ORDERED: LASIX TAB PO SCH (06:30)
[2019-07-03] MEDS: ASPIRIN EC PO SCH (08:26)
[2019-07-03] MEDS: K-DUR PO SCH ×3 (08:26→20:51)
[2019-07-03] MEDS: IMDUR PO SCH (08:26)
[2019-07-03] MEDS: ZAROXOLYN PO SCH (08:26)
[2019-07-03] MEDS: ZESTRIL PO SCH (08:26)
[2019-07-03] MEDS: NEURONTIN PO SCH ×3 (08:26→20:51)
[2019-07-03] MEDS: METHADONE PO SCH ×3 (08:26→20:52)
[2019-07-03] MEDS: LANTUS SUBCUT SCH ×2 (08:27→20:57)
[2019-07-03] MEDS: LOVENOX SUBCUT SCH (08:33)
[2019-07-03 15:00] VITALS: TEMP 98.4
[2019-07-03] MEDS: LIPITOR PO SCH (20:52)
[2019-07-03 23:30] VITALS: BP 136/60
[2019-07-04] MEDS: HUMULIN R SUBCUT SCH ×2 (06:48→12:17)
[2019-07-04] MEDS: ASPIRIN EC PO SCH (09:38)
[2019-07-04] MEDS: K-DUR PO SCH (09:39)
[2019-07-04] MEDS: IMDUR PO SCH (09:39)
[2019-07-04] MEDS: NEURONTIN PO SCH (09:40)
[2019-07-04] MEDS: METHADONE PO SCH (09:40)
[2019-07-04] MEDS: ZAROXOLYN PO SCH (09:41)
[2019-07-04] MEDS: ZESTRIL PO SCH (09:41)
[2019-07-04] MEDS: LOVENOX SUBCUT SCH (09:42)
[2019-07-04] MEDS: LANTUS SUBCUT SCH (09:44)
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
--- NOTE | 2019-07-04 12:30 | CM.DICTOOL ---
ADMISSION: 07/02/19 04:40 DISCHARGE: JULY 04, 2019 DATE OF SERVICE: 07/04/19 FINAL DIAGNOSIS UNCONTROLLED DIABETES CHRONIC BACK PAIN HISTORY OF PLASMACYTOMA FOLLOWED BY DR. DENISE (ONCOLOGY IN [place], [place]) DJD SPINE DYSLIPIDEMIA CAD DIABETIC NEUROPATHY CHRONIC LUNG DISEASE HISTORY OF HEAVY SMOKING HISTORY OF NON-COMPLIANCE WITH MEDICATIONS, LIFESTYLE, MD FOLLOW-UPS, DIET AND RECOMMENDATION CABG S/P LUMBAR SURGERY LAST VITALS Temp Pulse Resp BP Pulse Ox 98.4 F 93 H 18 136/60 96 07/03/19 14:00 07/03/19 22:00 07/03/19 22:00 07/03/19 22:00 07/03/19 22:00 TAKE THESE MEDICATIONS AT HOME Aspirin (Aspirin Ec) 81 mg PO DAILYWM [facility] Last Admin: 07/04/19 09:38 Dose: 81 mg Documented by: Atorvastatin Calcium (Lipitor) 10 mg PO BEDTIME [facility] Last Admin: 07/03/19 20:52 Dose: 10 mg Documented by: Furosemide (Lasix Tab) 40 mg PO QDAC [facility] Last Admin: 07/03/19 06:06 Dose: 40 mg Documented by: Gabapentin (Neurontin) 900 mg PO TID [facility] Last Admin: 07/04/19 09:40 Dose: 900 mg Documented by: Insulin Glargine (BASAGLAR) 60 unit SUBCUT AT BEDTIME DAILY Last Admin: 07/04/19 09:44 Dose: 30 unit Documented by: Insulin LISPRO (ADMELOG) 12 UNTIS SQ DIRECTED PRN Documented by: Isosorbide Mononitrate (Imdur) 30 mg PO DAILY [facility] Last Admin: 07/04/19 09:39 Dose: 30 mg Documented by: Lisinopril (Zestril) 5 mg PO DAILY [facility] Last Admin: 07/04/19 09:41 Dose: 5 mg Documented by: Methadone HCl (Methadone) 40 mg PO TID [facility] Last Admin: 07/04/19 09:40 Dose: 40 mg Documented by: Metolazone (Zaroxolyn) 2.5 mg PO DAILY [facility] Last Admin: 07/04/19 09:41 Dose: 2.5 mg Documented by: Omeprazole (Prilosec) 20 mg PO QDAC [facility] Last Admin: 07/03/19 06:07 Dose: 20 mg Documented by: Potassium Chloride (K-Dur) 20 meq PO DAILY [facility] Last Admin: 07/04/19 09:39 Dose: 20 meq Documented by: ALLERGIES cephalexin monohydrate [From Keflex] Allergy (Verified 07/02/19 01:39) codeine Adverse Reaction (Verified 07/02/19 01:39) Hives fentanyl Adverse Reaction (Verified 07/02/19 01:39) Hives DISCONTINUED MEDICATIONS NONE NEW PRESCRIPTIONS: NEW PRESCRIPTIONS NONE SMOKING: ADVISED TO STOP SMOKING DISEASE SPECIFIC EDUCATION: DIABETES MANAGEMENT, INCLUDING CHECKING BLOOD SUGARS AND TAKING MEDICATION PRESCRIBED APPOINTMENTS LAB REVIEW: 07/04/19 07:48 07/04/19 07:48 07/04/19 07:48: Sodium 126.4 L, Potassium 4.56, Chloride 86.9 L, Carbon Dioxide 35.4 H, Anion Gap 8.66, BUN 28.0 H, Creatinine 1.39 H, Estimated GFR (MDRD) 52.00, BUN/Creatinine Ratio 20.14, Glucose 342.7 H, Calcium 8.33 L, Total Bilirubin 0.38, AST 26.0, ALT 16.4, Alkaline Phosphatase 145.1 H, Total Protein 6.84, Albumin 3.48 L, Globulin 3.36, Albumin/Globulin Ratio 1.03 07/04/19 07:48: WBC 6.07, RBC 3.74 L, Hgb 10.4 L, Hct 31.9 L, MCV 85.3, MCH 27.8, MCHC 32.6, RDW Coeff of Honorio 15.1 H, Plt Count 268, Immature Gran % (Auto) 0.5, Neut % (Auto) 65.2, Lymph % (Auto) 18.6, [place] % (Auto) 6.8, Eos % (Auto) 8.4 H, Baso % (Auto) 0.5, Immature Gran # (Auto) 0.0, Neut # (Auto) 4.0, Lymph # (Auto) 1.1, [place] # (Auto) 0.4, Eos # (Auto) 0.5, Baso # (Auto) 0.0 07/03/19 17:04: Glucose 366.5 H D PLAN: DISCHARGE HOME DIET: CONSISTENT CARBOHYDRATES ACTIVITY: RESUME ACTIVITY TOLERATED; PATIENT USES MOTORIZED SCOOTER FOR TRANSPORTATION AN APPOINTMENT IS SCHEDULED ON June AT 1 PM WITH EILEEN UNNN APRN AT [facility] LOCATED ON [address]. YOU WILL NEED TO FIND A PRIMARY CARE PHYSICIAN TO MANAGE YOUR HEALTH CARE NEEDS PLEASE SCHEDULE AN APPOINTMENT WITH DR. DENISE, ONCOLOGY IN [place], [place] CODE STATUS: FULL CODE MR. CHASE IS ALERT AND ORIENTED X 3. HE TRANSFERS FROM THE BED TO THE WHEELCHAIR AND IS ABLE TO PROPEL HIMSELF IN THE ROOM AND HALLWAYS. HE REPORTS HE USES A MOTORIZED SCOOTER AT HOME FOR MOBILITY IN AND OUTSIDE THE HOME. MR. CHASE REPORTS HE LIVES AT HOME, BUT HAS A SIGNIFICANT OTHER. SHE HAS BEEN OUT OF TOWN FOR SEVERAL DAYS. MR. CHASE IS CONTINENT OF BLADDER AND BOWEL. HE IS ABLE TO FEED HIMSELF AND HAS A GOOD APPETITE OF 100% OF MEALS. MR. CHASE HAS OXYGEN AT HOME AND IS ASSISTED BY A DORS WORKER FOR HOMEMAKING NEEDS. SKIN IS INTACT AND FREE OF DECUBITUS ULCERS. LOWER EXTREMITIES ARE DRY AND FLAKY. SEVERAL SMALL SCABBED AREAS ARE NOTED TO THE RIGHT LOWER EXTREMITY AND ONE SMALL OPEN AREA IS NOTED. NO DRAINAGE NOTED TO THE OPEN AREA. YEISON SOLIS MD
--- NOTE | 2019-07-04 14:49 | DS ---
DATE OF SERVICE: 07/04/19 FINAL DIAGNOSIS: 1. UNCONTROLLED DIABETES 2. CHRONIC BACK PAIN 3. HISTORY OF PLASMACYTOMA FOLLOWED BY DR. DENISE (ONCOLOGY IN [place], [place]) 4. DJD SPINE 5. DYSLIPIDEMIA 6. CAD 7. DIABETIC NEUROPATHY 8. CHRONIC LUNG DISEASE 9. HISTORY OF HEAVY SMOKING 10.HISTORY OF NON-COMPLIANCE WITH MEDICATIONS, LIFESTYLE, MD FOLLOW-UPS, DIET AND RECOMMENDATION 11.CABG 12.S/P LUMBAR SURGERY LAST VITALS: Temp Pulse Resp BP Pulse Ox 98.4 F 93 H 18 136/60 96 07/03/19 14:00 07/03/19 22:00 07/03/19 22:00 07/03/19 22:00 07/03/19 22:00 DISCHARGE INSTRUCTION: DISCHARGE HOME. AN APPOINTMENT IS SCHEDULED ON June AT 1 PM WITH DEVORAH NUNN APRN AT [facility] LOCATED ON [address] YOU WILL NEED TO FIND A PRIMARY CARE PHYSICIAN TO MANAGE YOUR HEALTH CARE NEEDS. PLEASE SCHEDULE AN APPOINTMENT WITH DR. DENISE, ONCOLOGY IN [place], [place]. CODE STATUS: FULL CODE TAKE THESE MEDICATIONS AT HOME: Aspirin (Aspirin Ec) 81 mg PO DAILYWM [facility] Atorvastatin Calcium (Lipitor) 10 mg PO BEDTIME [facility] Furosemide (Lasix Tab) 40 mg PO QDAC [facility] Gabapentin (Neurontin) 900 mg PO TID [facility] Insulin Glargine (BASAGLAR) 60 unit SUBCUT AT BEDTIME DAILY Insulin LISPRO (ADMELOG) 12 UNTIS SQ DIRECTED PRN Isosorbide Mononitrate (Imdur) 30 mg PO DAILY [facility] Lisinopril (Zestril) 5 mg PO DAILY [facility] Methadone HCl (Methadone) 40 mg PO TID [facility] Metolazone (Zaroxolyn) 2.5 mg PO DAILY [facility] Omeprazole (Prilosec) 20 mg PO QDAC [facility] Potassium Chloride (K-Dur) 20 meq PO DAILY [facility] ALLERGIES: cephalexin monohydrate [From Keflex] Allergy (Verified 07/02/19 01:39) codeine Adverse Reaction (Verified 07/02/19 01:39) fentanyl Adverse Reaction (Verified 07/02/19 01:39) DISCONTINUED MEDICATIONS: NONE NEW PRESCRIPTIONS: NONE SMOKING: ADVISED TO STOP SMOKING DISEASE SPECIFIC EDUCATION: DIABETES MANAGEMENT, INCLUDING CHECKING BLOOD SUGARS AND TAKING MEDICATION PRESCRIBED APPOINTMENTS DIET: CONSISTENT CARBOHYDRATES ACTIVITY: RESUME ACTIVITY TOLERATED; PATIENT USES MOTORIZED SCOOTER FOR TRANSPORTATION HOSPITAL COURSE: 59 year old white male was brought in to the emergency room with uncontrolled diabetes. The patient's blood sugar was more than 700. The patient hasn't been taking his insulin for past two to three days. The patient's arterial blood gasses were normal. There was no evidence of hyperosmolar status was symptoms. He was oriented to time, place and person. His appetite was normal. There was no nausea or vomiting. The patient was treated with IV drip insulin with initial regular insulin IV. Within 8 hours the patient's blood sugar was brought down to 300-400. At the time of discharge the patient was feeling a lot better. He was on Basaglar 60mg at bedtime. He was advised to continue that and advised to take his medication on regular basis and follow his insulin according to what scale he had. The patient's problem is compliance. He is noncompliant of lifestyle. He is morbidly obese and heavy smoker. He was fired from the previous primary care because of his noncompliance on followup and recommendations. The patient has Plasmocytoma followed by Oncologist at [place]. He was advised to continue to followup with it. During the stay in the hospital the patient's cardiovascular status was stable with no evidence of CHF. Telemetry did not reveal any arrhythmia. Echo showed hypokinetic septum. Valvular structures were normal with enlarged LA cavity. The patient was oriented to time, place and person. His back pain has been the same it has always been. Never seemed to be in a lot of pain. Appeared to be watching TV and having good time. He wanted his pain medication on regular basis. He is moving all his extremities. He was able to navigate himself with the wheelchair. He went out for smoking initially. Counseling for smoking done. Counseling for weight loss done. Coronary artery disease risk factors discussed. Non HDL goal should be 100. Discussed and needs to followup with Devorah Nunn at [facility] to be seen in two days. Advised to get primary care as soon as possible as he has been relived by his previous primary care physician. Happened to take care of him because I was on Hospitalist call. CONDITION: Stable PROGNOSIS: Poor TIME SPENT: More than 60 minutes. FENG
--- NOTE | 2019-07-04 14:50 | PN ---
07/02/19: Level 5 07/03/19: Extensive 07/04/19: D as in discharge MTDD
--- NOTE | 2019-07-06 08:22 | PN ---
DATE OF SERVICE: 07/04/19 DISCHARGE NOTE SUBJECTIVE: 59 year old white male hospitalized with uncontrolled diabetes mellitus. The patient is noncompliant and hasn't been taking his insulin for awhile. In fact not taking his medication and he blames that on his girlfriend being out of town. The patient is heavy smoker. He has BMI of 40, morbid obesity. He is very intelligent. The hospital I heard watched him having good time watching TV, eating food. He doesn't seem to be in distress but rates his pain as 6 out of 10 in order to pain medication. REVIEW OF SYSTEMS: CONSTITUTIONAL: No night sweats. No fatigue, malaise, lethargy. No fever or chills. HEENT: Eyes: No visual changes. No eye pain. No eye discharge. ENT: No runny nose. No epistaxis. No sinus pain. No sore throat. No odynophagia. No congestion. RESPIRATORY: No cough, no congestion. No hemoptysis. No shortness of breath. CARDIOVASCULAR: No angina symptoms. No CHF symptoms. No atypical chest pain for CAD. No palpitations. No PND. No orthopnea. GASTROINTESTINAL: No abdominal pain. No nausea or vomiting. No diarrhea or constipation. No hematemesis. No hematochezia. GENITOURINARY: No urgency. No frequency. No dysuria. No hematuria. No obstructive symptoms. No discharge. No pain. No significant abnormal bleeding. MUSCULOSKELETAL: No musculoskeletal pain; no joint swelling. He was saying that he has low back pain which is the same as before. NEUROLOGICAL: No headache. No neck pain. No syncope. No seizures. No dizziness. PSYCHIATRIC: Not anxious. No depression. No suicidal thoughts. No homicidal thoughts. SKIN: No rash. No lesions. No wounds. ENDOCRINE: No unexplained weight loss. No weight gain. HEMATOLOGIC/LYMPHATIC: No anemia. No purpura. No petechiae. No prolonged or excessive bleeding. No palpable lymph nodes. PHYSICAL EXAMINATION: VITAL SIGNS: Temperature 98.4, pulse 90, respiratory rate 18, blood pressure 136/60 and pulse ox 96%. HEENT: Head normocephalic, atraumatic. Eyes: Extraocular muscles are intact. Pupils are equal, round and reactive to light and accommodation. Ears: No lesions. Nose appeared normal. Throat: No exudate or erythema. NECK: Supple. No JVD, no carotid bruit. No lymphadenopathy or thyromegaly. LUNGS: Decreased breath sounds but clear to auscultation. Percussion note normal. Chest symmetrical. HEART: S1, S2, no S3. No murmurs. No cyanosis or clubbing. No ascites. Pulses: Dorsalis pedis and posterior tibial pulses +1 to +2 bilaterally. ABDOMEN: Soft. Nontender. Bowel sounds active. No CVA tenderness. No mass felt. EXTREMITIES: Trace edema, nonpitting. Full range of motion of all extremities, equal. NEUROLOGIC: No focal deficit. Cranial nerves II through XII are grossly intact. No headache, no double vision or headache. SKIN: Not dry. Intact. Turgor - normal. LYMPHATIC: No palpable lymph nodes/no lymphedema. MUSCULOSKELETAL: Normal joints with no swelling. Muscle tone is normal. LABS: ASSESSMENT: 1. Diabetes, under control. Blood sugar ranges anywhere from 180 to 300. Fine adjustment could be made as an outpatient. The patient is advised to cut down, says that he loves lemonade and he drinks a lot. Even a half a glass of lemonade would raise his blood sugar by 60-70 minimum. Diet explained to him in detail. 2. Coronary artery risk factor discussed with him. The patient had coronary artery disease with bypass surgery PLAN: 1. Counseling for smoking done. 2. The patient is going to be discharged home to be followed by primary care. PROGNOSIS: Extremely poor considering his lifestyle, noncompliance of all aspects of medical care. TIME SPENT: More than 30 minutes. Plan and coordination of the patient's care discussed in the presence of nurse. FENG
--- NOTE | 2019-07-07 13:44 | ECHO2D ---
Date of Exam: 07/04/19 Ordering Physician: DR. YEISON SOLIS Room #: 122 Reason for Echo: CABG, DM M-Mode Normal Adult Results LV Dimensions Normal Adult Results AoV Opening excursions >1.6 >1.6 LVEDD-base- 3.5-5.8 5.7 Ao root dimensions 2.0-3.7 3.7 LVESD-base- 3.1-4.6 L. Atrium dimensions 1.9-3.8 5.4 Post. Wall thickness 0.8-1.1 1.3 IV septum (thickness) 0.7-1.2 1.2 Post. Wall excursion 0.72-1.3 NORMAL Septal motion 0.5 Systolic motion R. Ventricular cavity 1.5-2.0 NORMAL LVEF 60% 50-53% Paradoxical septal wall motion NORMAL 2-D : 2-D M Mode Echocardiogram was performed using apical four chamber and left parasternal long and short axis views. Mitral, tricuspid and aortic valves appear to be normal. Contractility of the left ventricle seems to be normal, so is the cavity size. HYPOKINETIC SEPTAL WALL/ ENLARGED LEFT ATRIAL CAVITY. Aortic root appears to be normal. There is no pericardial effusion. There is no thrombus noted in the left ventricle or left atrial cavity. No mitral valve prolapse noted. M-MODE: MV: NORMAL AV: NORMAL TV: NORMAL PV: CHAMBER SIZE: ENLARGED LEFT ATRIAL CAVITY/BORDERLINE LEFT VENTRICLE CAVITY WALL MOTION: HYPOKINETIC SEPTUM PERICARDIUM: NORMAL INTERPRETATION: 1. LEFT VENTRICULAR HYPERTROPHY WITH ENLARGED LEFT ATRIAL CAVITY (5.4 CM) 2. HYPOKINETIC SEPTAL WALL EJECTION FRACTION 50 TO 53% 3. BORDERLINE LEFT VENTRICULAR CONTRACTILITY 4. NORMAL VALVES MTDD
== END 2019-07-04 12:47 | disposition home or self-care (01) | DRG 948 ==
LOC: ED 01:06 → MEDSURG B 04:40
PROVIDERS: ADMIT Internal Medicine; ATTEND Internal Medicine
DX: M51.36 Other intervertebral disc degeneration, lumbar region; I25.10 Atherosclerotic heart disease of native coronary artery without angina pectoris; E11.65 Type 2 diabetes mellitus with hyperglycemia; E78.5 Hyperlipidemia, unspecified; M54.5 Low back pain; M79.604 Pain in right leg; R20.0 Anesthesia of skin; E08.40 Diabetes mellitus due to underlying condition with diabetic neuropathy, unspecified; M79.605 Pain in left leg; M54.16 Radiculopathy, lumbar region; C90.30 Solitary plasmacytoma not having achieved remission; R50.9 Fever, unspecified; R53.1 Weakness

== ENCOUNTER 2019-08-01 23:23 | Observation (INO) ==
[2019-08-01] MEDS ORDERED: SODIUM CHLORIDE 1,000 ML IV STA (23:47)
[2019-08-01] MEDS ORDERED: DILAUDID 1 MG/ML SYRINGE IVP STA (23:49)
[2019-08-01] MEDS ORDERED: HUMULIN R IVP STA (23:50)
[2019-08-01] MEDS ORDERED: HUMULIN R SUBCUT PRN (23:52)
--- NOTE | 2019-08-01 23:58 | ED.PDOC ---
General ED Provider: Dr. SUSAN ARMANDO Chief Complaint: Back Pain Stated Complaint: my bs are high Time Seen by Physician: 00:57 Mode of Arrival: Ambulance Information Source: Patient and EMT Nursing and Triage Documentation Reviewed and Agree: Yes Does patient meet sepsis criteria?: No System Inflammatory Response Syndrome: Not Applicable Sepsis Protocol: For patient's 13 years and over: Temp is 96.8 and below OR 101 and greater Pulse >90 BPM Resp >20/minute Acutely Altered Mental Status Are patient's symptoms suggestive of a new infection, such as: -Pneumonia -Skin, Soft Tissue -Endocarditis -UTI -Bone, Joint Infection -Implantable Device -Acute Abdominal Infection -Wound Infection -Meningitis -Blood Stream Catheter Infection -Unknown Musculoskeletal Complaint Exam Back Pain Complaint/Exam Mechanism of Injury: Reports No known trauma Onset/Duration: tonight Symptoms Are: Still present Timing: Constant Initial Severity: Mild Current Severity: Moderate Location: Reports Diffuse Character: Reports Dull and Aching Aggravating: Reports Movements Associated Signs and Symptoms: Reports Numbness and Tingling Cauda Equina Risk Factors: Reports None Related Surgical History: Reports None Focal Tenderness: No Paraspinal Muscle Tenderness: No Paraspinal Muscle Spasm: Yes Scoliosis: No Lordosis: No Kyphosis: No Focal Weakness: Present None Focal Sensory Loss: Present None Gait: Present Unsteady Differential Diagnoses: Herniated Disk, Strain and Sprain Review of Systems Review Of Systems Constitutional: Reports No symptoms Eyes: Reports No symptoms Ears, Nose, Mouth, Throat: Reports No symptoms Respiratory: Reports No symptoms Cardiac: Reports No symptoms GI: Reports No symptoms : Reports No symptoms Musculoskeletal: Reports Back pain and Muscle pain Skin: Reports No symptoms Neurological: Reports No symptoms Endocrine: Reports No symptoms Hematologic/Lymphatic: Reports No symptoms All Other Systems: Reviewed and Negative [facility] Social History Smoking and tobacco status: Current every day smoker Tobacco type: cigarettes Smoking packs per day: 1 Smoking cigarettes per day: 20.0 Years smoked: 25 Smoking pack-years: 25.00 Tobacco: How many years used: 25 Passive smoking exposure: Yes Alcohol intake: never Substance use type: does not use and former substance user Household members: significant other Housing: apartment Lives independently: Yes Number of children: 2 Highest education level completed: 10th grade Financial difficulty paying for basics: not very hard Current occupational status: disabled Pets and animals: No History of recent travel: No Sexually active: No Do you think of yourself as: straight/heterosexual Current gender identity: male Seatbelt use: sometimes Current diet type/program: regular Well-balanced diet: rarely Caffeine: Yes Eating out: 1-3 times/week Reads food labels: seldom or never During the past year weight has: increased > 10 lbs Water heater temperature set < 120 degrees: Yes Working smoke detector in home: Yes Fire extinguisher in home: No Carbon monoxide detector in home: Yes Firearms in home: No Physical activity functional status: wheelchair user Physical Exam Physical Exam Appearance: Well-appearing Ill-appearing: None Pain Distress: Moderate Eyes: OBDULIO, EOMI and Conjunctiva clear ENT: Ears normal Neck: Supple Respiratory: Airway patent, Breath sounds clear and Breath sounds equal Cardiovascular: RRR GI/: Soft Musculoskeletal: Normal strength and ROM intact Skin: Warm Neurological: Sensation intact Psychiatric: Affect appropriate, Mood appropriate and Anxious Interpretation EKG Interpretation Time of EKG #1: 00:55 Rate: Tachy Rhythm: Sinus Ectopy: None [place]: NL ST Segment: Normal Interpretation: sinus tachy Critical Care Note Critical Care Note Total Time (mins): 30 Course Course Hematology/Chemistry: 08/02/19 00:10 08/02/19 00:10 Orders, Labs, Meds: Lab Review 08/01/19 08/01/19 08/02/19 23:46 23:55 00:10 WBC 4.44 RBC 4.14 L Hgb 11.7 L Hct 36.3 L MCV 87.7 MCH 28.3 MCHC 32.2 RDW Coeff of Honorio 13.8 Plt Count 184 Neutrophils % (Manual) 60.0 Lymphocytes % (Manual) 31.0 Monocytes % (Manual) 3.0 Eosinophils % (Manual) 6.0 H Anisocytosis Not present Puncture Site Rrad O2 Saturation 97.0 ABG pH 7.411 ABG pCO2 35.4 ABG pO2 87.0 ABG HCO3 22.5 ABG Total CO2 24 ABG Base Excess -2 Bryan Test + FiO2 % 21.0 Sodium Potassium Chloride Carbon Dioxide Anion Gap BUN Creatinine Estimated GFR (MDRD) BUN/Creatinine Ratio Glucose Calcium Total Bilirubin AST ALT Alkaline Phosphatase Total Creatine Kinase Troponin I Total Protein Albumin Globulin Albumin/Globulin Ratio Urine Color Light Urine Clarity Clear Urine pH 5.5 Ur Specific [place] <=1.005 Urine Protein Negative Urine Glucose (UA) 2+ Urine Ketones Negative Urine Blood Negative Urine Nitrite Negative Urine Bilirubin Negative Urine Urobilinogen 0.2 Ur Leukocyte Esterase Negative 08/02/19 00:10 WBC RBC Hgb Hct MCV MCH MCHC RDW Coeff of Honoroi Plt Count Neutrophils % (Manual) Lymphocytes % (Manual) Monocytes % (Manual) Eosinophils % (Manual) Anisocytosis Puncture Site O2 Saturation ABG pH ABG pCO2 ABG pO2 ABG HCO3 ABG Total CO2 ABG Base Excess Bryan Test FiO2 % Sodium 127.1 L Potassium 3.51 Chloride 88.7 L Carbon Dioxide 24.9 Anion Gap 17.01 BUN 9.2 Creatinine 0.73 Estimated GFR (MDRD) 110.00 BUN/Creatinine Ratio 12.60 Glucose 925.1 H* Calcium 8.53 Total Bilirubin 0.21 AST 15.4 L ALT 14.6 Alkaline Phosphatase 118.2 Total Creatine Kinase 69.6 Troponin I < 0.012 Total Protein 6.29 L Albumin 3.49 L Globulin 2.80 Albumin/Globulin Ratio 1.24 Urine Color Urine Clarity Urine pH Ur Specific [place] Urine Protein Urine Glucose (UA) Urine Ketones Urine Blood Urine Nitrite Urine Bilirubin Urine Urobilinogen Ur Leukocyte Esterase Orders Category Date Time Status ABG DRAW REQUEST Stat CARDIO 08/01/19 23:46 Completed EKG-(ED ONLY) Stat CARDIO 08/01/19 23:45 Completed BLOOD GLUCOSE MONITORING Q1HR CARE 08/01/19 23:53 Active ED ACCUCHECK ASSESSMENT .ONCE EMERGENCY 08/01/19 23:31 Active ED YEAST FERMENTATION ATTENDANT APPLIED .ONCE EMERGENCY 08/01/19 23:46 Active ED IV/MEDIPORT/POWERPORT .ONCE EMERGENCY 08/01/19 23:45 Active ABG Stat LAB 08/01/19 23:46 Completed CBC W/ AUTO DIFF Stat LAB 08/01/19 23:46 Completed COMPREHENSIVE METABOLIC PANEL Stat LAB 08/01/19 23:46 Completed CREATINE KINASE Stat LAB 08/01/19 23:46 Completed MANUAL DIFFERENTIAL Stat LAB 08/02/19 00:10 Completed TROPONIN I Stat LAB 08/01/19 23:46 Completed URINALYSIS C & S IF INDICATED Stat LAB 08/01/19 23:55 Completed 0.9 % Sodium Chloride [Saline Flush] MEDS 08/01/19 23:45 Active 1 syr IVF PRN PRN Hydromorphone HCl [Dilaudid 1 mg/ml Syringe] MEDS 08/01/19 23:49 Discontinued 1 mg IVP ONCE STA Insulin Regular, Human [Humulin R] MEDS 08/01/19 23:50 Discontinued 10 unit IVP ONCE STA Insulin Regular, Human [Humulin R] MEDS 08/01/19 23:52 Ordered See Dose Instructions SUBCUT PRN PRN Sodium Chloride 0.9% [Sodium Chloride] 1,000 ml MEDS 08/01/19 23:47 Active IV 100 mls/hr Medications Generic Name Dose Route Start Last Admin Trade Name Freq PRN Reason Stop Dose Admin Sodium Chloride 1,000 mls @ 100 mls/hr 08/01/19 23:47 08/02/19 00:18 Sodium Chloride IV 08/02/19 09:46 100 mls/hr .Q10H STA Administration Insulin Human Regular 0 unit 08/01/19 23:52 Humulin R SUBCUT PRN PRN Hyperglycemia Protocol Sodium Chloride 1 syr 08/01/19 23:45 08/02/19 00:20 Saline Flush IVF 1 syr PRN PRN Administration To flush IV Discontinued Medications Generic Name Dose Route Start Last Admin Trade Name Freq PRN Reason Stop Dose Admin Hydromorphone HCl 1 mg 08/01/19 23:49 08/02/19 00:19 Dilaudid 1 Mg/Ml Syringe IVP 08/01/19 23:50 1 mg ONCE STA Administration Insulin Human Regular 10 unit 08/01/19 23:50 08/02/19 00:19 Humulin R IVP 08/01/19 23:51 10 unit ONCE STA Administration Vital Signs: Temp Pulse Resp BP Pulse Ox 08/01/19 23:23 98.9 F 100 H 20 148/49 H 98 Discharge Plan Discharge Patient Disposition: ADMITTED INPATIENT Discharge Problem: Uncontrolled diabetes mellitus Prescriptions: No Action metolazone 2.5 MG tablet 2.5 mg PO DAILY 30 Days Qty: 30 RF: 2 lisinopril 5 MG tablet 5 mg PO DAILY Qty: 30 RF: 3 potassium chloride [Klor-Con M20] 20 MEQ tablet,ER particles/crystals 20 meq PO DAILY 30 Days Qty: 30 RF: 1 ([facility] blood-glucose meter [True Metrix Glucose Meter] [facility] DIRECTED Qty: 1 RF: 0 (DME) True Metrix Glucose Test Strip 1 EACH strip 1 ea TID Qty: 100 RF: 12 Basaglar KwikPen U-100 Insulin 100 UNIT/1 ML insulin pen 60 units SQ BEDTIME Qty: 1 RF: 3 isosorbide mononitrate 30 MG tablet extended release 24 hr 30 mg PO DAILY Qty: 30 RF: 3 (DME) BD Blunt Plastic Cannula 1 EACH syringe 1 [facility] DIRECTED 30 Days Qty: 100 RF: 4 gabapentin 300 MG capsule 900 mg PO TID 30 Days Qty: 90 RF: 0 Prilosec OTC 20 MG tablet,delayed release (DR/EC) 20 mg PO DAILY RF: 0 furosemide 40 MG tablet 40 mg PO QDAC RF: 0 insulin lispro [Admelog U-100 Insulin lispro] 100 UNIT/ML solution 12 unit SQ DIRECTED PRN (Reason: Hyperglycemia) RF: 0 tramadol [Ultram] 50 mg tablet 50 mg PO Q8H PRN (Reason: pain) Qty: 21 RF: 0 oxycodone-acetaminophen [Percocet] 10-325 mg tablet 1 tab PO Q4H PRN (Reason: pain) Qty: 10 RF: 0 aspirin [Aspir-Low] 81 MG tablet,delayed release (DR/EC) 81 mg PO DAILY RF: 0 atorvastatin 10 MG tablet 10 mg PO BEDTIME RF: 0 methadone 40 mg Tablet,Soluble 40 mg PO TID RF: 0 ED Provider: SUSAN ARMANDO Condition: Fair
[2019-08-02] MEDS ORDERED: HUMULIN R IVP PRN (01:01)
[2019-08-02] MEDS ORDERED: HUMULIN R IVP STA (01:45)
[2019-08-02 01:49] VITALS: BMI 40.6
[2019-08-02] MEDS: PERCOCET 10-325 PO PRN ×2 (02:22→12:09)
[2019-08-02] MEDS: DILAUDID 1 MG/ML SYRINGE IVP PRN ×2 (03:17→17:52)
[2019-08-02] MEDS ORDERED: HUMULIN R SUBCUT STA ×3 (03:29→06:24)
[2019-08-02] MEDS ORDERED: LASIX TAB PO SCH (06:30)
[2019-08-02] MEDS ORDERED: PRILOSEC PO SCH (06:30)
[2019-08-02] MEDS: NEURONTIN PO SCH ×3 (08:21→15:55)
[2019-08-02] MEDS: HUMALOG SUBCUT SCH ×3 (08:22→17:17)
[2019-08-02] MEDS ORDERED: ASPIRIN EC PO SCH (09:00)
[2019-08-02] MEDS ORDERED: METHADONE 40 MG PO SCH ×2 (09:00)
[2019-08-02] MEDS ORDERED: K-DUR PO SCH (09:00)
[2019-08-02] MEDS ORDERED: IMDUR PO SCH (09:00)
[2019-08-02] MEDS ORDERED: LANTUS SUBCUT SCH ×2 (09:00→21:00)
[2019-08-02] MEDS ORDERED: ZAROXOLYN PO SCH (09:00)
[2019-08-02] MEDS ORDERED: ZESTRIL PO SCH (09:00)
[2019-08-02] MEDS ORDERED: LOVENOX SUBCUT SCH (09:00)
--- NOTE | 2019-08-02 09:18 | HP ---
CHIEF COMPLAINT: "I think my blood sugar is high." DISCUSSION: This is a 59-year-old gentleman well-known to the Emergency Department staff with history of chronic low back pain as well as diabetes. The patient complained that his blood sugars have been high and his legs were cramping too much to reach his insulin. In the Emergency Department, his blood sugar was over 900 however he was not acidotic. His pH was possibly 7.4. He was admitted for better control of his blood sugars. PAST MEDICAL HISTORY: MEDICATIONS: Metolazone Lisinopril Potassium Basaglar insulin Isosorbide Gabapentin Prilosec Lasix Lispro insulin Tramadol Percocet Aspirin Atorvastatin Methadone ALLERGIES: NKDA PAST MEDICAL HISTORY: Hypertension History of Type 2 diabetes, insulin treated Diabetic neuropathy Chronic low back pain Hyperlipidemia MRSA Degenerative joint disease History of coronary artery disease History of GERD History of COPD PAST SURGICAL HISTORY: History of back surgery Coronary artery bypass surgery SOCIAL HISTORY: He is a one pack per day smoker. Denies any alcohol or ilicit drug use. FAMILY HISTORY: Positive for heart disease and diabetes. REVIEW OF SYSTEMS: Denies headaches, visual changes, tinnitus, chest pain, shortness of breath, hemoptysis, abdominal pain. He does have chronic low back pain. Denies any urinary symptoms or seizures. PHYSICAL EXAMINATION: V/S: Temperature 98.6, pulse rate 101, respiratory rate 18, BP 148/98. HEENT: Pupils are round. NECK: Supple. CHEST: Clear. CARDIOVASCULAR: Regular rate and rhythm. ABDOMEN: Soft, nontender. EXTREMITIES: Distal extremities without cyanosis or edema. ASSESSMENT: 1. HYPERGLYCEMIA UNCONTROLLED 2. CHRONIC LOW BACK PAIN PLAN: 1. IV fluids. 2. IV insulin until we get blood sugar down to reasonable control and then will switch him to his home dosing. 3. Please see orders. MTDD
[2019-08-02 14:02] VITALS: BP 90/58; TEMP 99
[2019-08-02] MEDS ORDERED: LIPITOR PO SCH (21:00)
--- NOTE | 2019-08-03 08:00 | DS ---
PRINCIPAL DIAGNOSIS: 1. UNCONTROLLED DIABETES 2. CHRONIC LOW BACK PAIN DISCUSSION: This is a 59-year-old gentleman with a history of uncontrolled Type 2 diabetes as well as chronic low back pain. He is seen frequently in the Emergency Department for exacerbation of such. He presented to the Emergency Department with bilateral leg pain described as cramping associated with drinking [employer] soft drinks all day. He was found to have blood sugar in excess of 900 however his pH was noted to be 7.4. He was found to have uncontrolled Type 2 diabetes with hyperglycemia however he was not acidotic or ketotic and was admitted to my services as hospitalist for control of blood sugars. For further details please see History and Physical. CLINICAL COURSE: He was started on IV Saline and given supplemental injections of Regular insulin. His blood sugars came down and at time of discharge his blood sugar was 205. He was tolerating regular diet without nausea or vomiting and his pain was controlled. He is going to be discharged to followup with his PCP next week. FENG
== END 2019-08-02 18:45 | disposition home or self-care (01) | DRG 552 ==
LOC: ED 23:23 → SCU 08-02 00:58 → INTOOBSV 08-02 00:58 → SCU 08-02 01:30
PROVIDERS: ADMIT Family Medicine; ATTEND Family Medicine
DX: R20.0 Anesthesia of skin; Z72.0 Tobacco use; E11.65 Type 2 diabetes mellitus with hyperglycemia; F41.9 Anxiety disorder, unspecified; M54.9 Dorsalgia, unspecified